=== PATIENT | male | born 1940 | race Caucasian/White ===

== ENCOUNTER → 2016-05-08 | Outpatient (CLI) | payer MEDICARE ==
[~2016-05-08] MED LIST: ACHD5005; ACHD5005 PO; AMBIEN CR; ATOR40TA70 PO; CEPH500C PO; CHOL400T43 PO; CHOL500014 PO; CLNZ.5T; CYAN100053 IJ; CYCL10TA45 PO; GLIP10TA13 PO; GLPZ10TCR; GLPZ5T; GMFB600T PO; HYDR1TAB PO; INSU100V8 SQ; LISI2.5T56 PO; METF-380 PO; METHYLIN; MGX400T PO; MTF500T PO; MTP50T PO; MULT1TAB63 PO; OMG1KC PO; RPN.25T; RSG4T; SIMV40TA2; SIMV80TA3 PO; TESTOSTERONE; TOPI200T2 PO; TRAM50TA2 PO; VITAMIN D; WARF7.5T PO; WRF10T; WRF10T PO
--- OUTSIDE RECORDS SUMMARY | 2016-05-08 08:21 | XMS REPORT | Continuity of Care Document ---
Author Author [facility] Organization [facility] Address Unknown Phone Unavailable Care Team Providers Care Functional Mental Disability Teacher Name Role Phone Fiorella Hart III PCP [phone] Source Comments Some departments are not documenting in the electronic medical record. If you do not see the information that you expected, contact Release of Information in the Health Information Management department at [phone] for further assistance in locating additional records.[facility] Active Allergies and Adverse Reactions No Known Allergies Current Medications Prescription Sig. Disp. Refills Start End Date Status Date glipiZIDE (GLUCOTROL) 10 Take 10 mg by mouth twice Active mg tablet daily. warfarin (COUMADIN) 5 mg Take 7.5 mg by mouth Active tablet twice weekly. Friday, atorvastatin (LIPITOR) 40 Take 40 mg by mouth at Active mg tablet bedtime daily. niacin SR (ENDUR-ACIN) Take 750 mg by mouth Active 500 mg tablet twice daily. magnesium oxide (MAG-OX) Take 400 mg by mouth Active 400 mg tablet daily. Cholecalciferol (Vitamin Take 5,000 Units by mouth Active D3) 5,000 unit tab twice weekly. Fridays, he is taking Rx Vitamin D 50,000 units cyclobenzaprine Take 10 mg by mouth at Active (FLEXERIL) 10 mg tablet bedtime daily. cyanocobalamin (VITAMIN Inject 1,000 mcg to Active B-12, RUBRAMIN) 1,000 area(s) as directed every mcg/mL injection 30 days. metFORMIN (GLUCOPHAGE) Take 1,000 mg by mouth Active 1,000 mg tablet twice daily with meals. metoprolol (LOPRESSOR) 50 Take 50 mg by mouth twice Active mg tablet daily. warfarin (COUMADIN) 10 mg Take 10 mg by mouth five Active tablet times weekly. Friday, Friday, Friday, Friday, Friday insulin glargine (LANTUS) Inject 54 Units into Active 100 unit/mL injection area(s) as directed at bedtime daily. DOCOSAHEXANOIC ACID/EPA Take 7 Caps by mouth Active (FISH OIL PO) daily. 9800mg HYDROCODONE BIT/HOMATROP Take by mouth as Needed. Active ME-BR (HYDROCODONE COMPOUND PO) gabapentin (NEURONTIN) Take 300 mg by mouth Active 300 mg capsule daily. linagliptin (TRADJENTA) 5 Take 2.5 mg by mouth Active mg tab daily. fenofibrate TAKE ONE-HALF TABLET BY 45 Tab 1 11/29/19 Active nanocrystallized (TRICOR) MOUTH DAILY 16 145 mg tablet Active Problems Problem Noted Date Infected dental carries 07/11/2015 Familial combined hyperlipidemia 07/05/2014 Carotid artery plaque 07/05/2014 Diabetes (HCC) 07/05/2014 Cancer of kidney 05/27/2013 Overview: 05/27/13 Left lap radical nephrectomy, Dr. Sesay. pT1a KIDNEY: Nephrectomy, Radical Procedure: Radical nephrectomy Specimen Laterality: Left Tumor Site: Middle Tumor Size: 4.0 x 3.0 x 2.2 cm Tumor Focality: Unifocal Macroscopic Extent of Tumor: Tumor limited to kidney Histologic Type: Unclassifiable, low grade Sarcomatoid Features: Not identified Tumor Necrosis: Not identified Histologic Grade: Low grade Microscopic Tumor Extension: Tumor limited to kidney Margins: Margins uninvolved by invasive carcinoma Lymph-Vascular Invasion: Not identified Pathologic Staging (pTNM): pT1a NX M Not applicable 11/2013: CXR ALISON, Cr=1.4 (stable) 06/2014: STEFANI 1. INTERVAL LEFT NEPHRECTOMY WITHOUT EVIDENCE OF A RECURRENT OR RESIDUAL LEFT RENAL FOSSA MASS 2. REDEMONSTRATION OF TWO RIGHT RENAL CYSTS WITH A THIN SEPTUM WITHIN THE LARGER CYST, LIKELY FROM PRIOR INTRACYSTIC HEMORRHAGE. NO SUSPICIOUS RIGHT RENAL LESION IS IDENTIFIED. CXR wnl 12/2014: STEFANI - stable right renal cyst; no evidence of malignancy 06/2015: CT ALISON; right renal cyst unchanged L ast Assessment & Plan: Doing well ALISON RTC 1 year with CXR and BMP Hypertriglyceridemia 05/18/2013 Factor 5 Leiden mutation, heterozygous (HCC) 05/18/2013 DVT (deep venous thrombosis) (HCC) 05/18/2013 Pulmonary embolism (HCC) 05/18/2013 Vitamin D deficiency 05/18/2013 Resolved Problems Problem Noted Date Resolved Date Diabetes mellitus (HCC) 05/18/2013 07/05/2014 Most Recent Encounters Date Type Specialty Providers Description 04/11/2016 Scan Only Clinical Pharmacology Joel Palma MD Social History Tobacco Use Types Packs/Day Years Used Date Former Smoker Cigarettes 3 35 Smokeless Tobacco: Never Used Tobacco Cessation: Counseling Given: No Comments: Alcohol Use Drinks/Week oz/Week Comments No Last Filed Vital Signs Vital Sign Reading Time Taken Blood Pressure 130/65 07/11/2015 1:50 PM CDT Pulse 75 07/11/2015 1:50 PM CDT Temperature 36.7 C (98 F) 05/29/2013 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 Respiratory Rate 16 07/11/2015 1:50 PM CDT Height 1.727 m (5' 8") 07/11/2015 1:50 PM CDT Weight 131.725 kg (290 lb 6.4 07/11/2015 1:50 PM CDT oz) Body Mass Index 44.17 07/11/2015 1:50 PM CDT Oxygen Saturation 96% 05/29/2013 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 Plan of Care Date Type Specialty Providers Description 07/16/2016 Appointment Urology Dennise Sesay MD [address] [facility] [place] [address] [place] [address] [phone] (Fax) Health Maintenance Due Date Last Done Comments Physical (Comprehensive) 1947 Exam Pertussis Vaccine 1950 Tetanus Vaccine 01/05/1956 Dilated Eye Exam 1957 Foot Exam 1957 Microalbumin 1957 Shingles Vaccine 1999 Prevnar/Pneumovax (#1) 01/05/2004 Influenza Vaccine 11/23/2015 Hba1c 01/10/2016 07/11/2015, 01/03/2015, 07/05/2014 Additional history exists Results from Last 3 Months Not on file
--- NOTE | 2016-05-08 09:28 | Diagnostic Imaging Report ---
CLINICAL INDICATION: Patient with thyromegaly. COMPARISONS: None. FINDINGS: THYROID NODULES: There is a 5 mm x 4 mm x 5 mm nodule involving the inferior pole of left thyroid gland which demonstrates central iso-echogenicity with hypoechoic rim. This nodule shows no significant central Doppler flow. There are no other thyroid nodules seen. THYROID GLAND: Besides the thyroid nodules, the thyroid gland has normal size, shape and echogenicity. The right lobe measures 3.0 cm x 1.2 cm x 0.9 cm and the left lobe measures 3.0 cm x 1.2 cm x 1.2 cm in their three dimensions. ISTHMUS: The isthmus is unremarkable and measures 4 mm in thickness. IMPRESSION: There is a 5 mm nodule in the left thyroid gland. Otherwise, unremarkable thyroid ultrasound exam. Dictated by: Dictated on workstation # [id number]
== END ==
LOC: RAD 08:17
PROVIDERS: ATTEND Nurse Practitioner Family
DX: E01.0 Iodine-deficiency related diffuse (endemic) goiter (principal)
CPT/HCPCS: 76536

== ENCOUNTER 2016-06-15 15:58 | Emergency (ER) | payer MEDICARE ==
[~2016-06-15] VITALS: Ht 177.8 cm; Wt 117.9 kg
--- NOTE | 2016-06-15 17:06 | Diagnostic Imaging Report ---
INDICATION: Left leg pain after trip and fall. COMPARISON: None available. TECHNIQUE: AP and lateral views of the left tibia and fibula. FINDINGS: There is no acute fracture or abnormal periosteal reaction. No focal osseous lesion. The knee and ankle are normal in alignment. Mild degenerative changes of the tibiotalar joint. Small plantar calcaneal spur. IMPRESSION: No acute fracture of the left tibia and fibula. Dictated by: Dictated on workstation # [id number]
--- NOTE | 2016-06-15 17:19 | ED Lower Extremity ---
General Chief Complaint: Trauma-Non Activation Stated Complaint: LEFT LEG PAIN Nursing Triage Note: Pt fell in a man hole. Abrasion noted to left blanco. Pt has been ambulatory. Nursing Sepsis Screen: No Definite Risk Source: patient Exam Limitations: no limitations History of Present Illness Time seen by provider: 17:14 Initial Comments The patient reports that he was in his yard earlier this afternoon. He stepped on the lid of the water meter. It tilted and dropped him into the manhole with his left leg. He does not believe that his leg was broken but he has an abrasion over the left tibia at the mid point. His last tetanus shot was 2 years ago. Location Injury Occurred: [facility] Onset: this afternoon Pain/Injury Location: left leg Method of Injury: direct blow Allergies and Home Medications Allergies Coded Allergies: meperidine (Verified Allergy, Unknown, 06/27/06) Home Medications Atorvastatin Calcium 40 Mg Tablet, 40 MG PO HS, (Reported) Cephalexin Monohydrate 500 Mg Capsule, 1 EACH PO TID, #21 Ref 0 Prescribed by: RASHIDA NJ on 09/30/13 175 Cyclobenzaprine Hcl 10 Mg Tablet, 10 MG PO HS, (Reported) Gemfibrozil 600 Mg Tab, 600 MG PO DAILY, (Reported) Glipizide 10 Mg Tablet, 10 MG PO BID, (Reported) Magnesium Oxide 400 Mg Tab, 400 MG PO DAILY, (Reported) Metformin Hcl 1,000 Mg Tablet, 1,000 MG PO BID WITH MEALS, (Reported) Metoprolol Tartrate 50 Mg Tablet, 50 MG PO BID, (Reported) Tramadol Hcl 50 Mg Tablet, 50 MG PO Q4H PRN for PAIN, #14 Ref 0 Prescribed by: RASHIDA NJ on 09/30/13 193 Warfarin Sodium 10 Mg Tablet, 1 EACH PO UD, (Reported) Constitutional: see HPI EENTM: no symptoms reported Respiratory: no symptoms reported Cardiovascular: no symptoms reported Gastrointestinal: no symptoms reported Genitourinary: no symptoms reported Musculoskeletal: no symptoms reported Skin: no symptoms reported Psychiatric/Neurological: No Symptoms Reported Past Uxyddtl-Dktyts-Rtutzq Hx Patient Social History Alcohol Use: Denies Use Recreational Drug Use: No Recent Foreign Travel: No Contact w/Someone Who Travel: No Recent Infectious Disease Expo: No Immunizations Up To Date Tetanus Booster (TDap): Less than 5yrs Date of Pneumonia Vaccine: Oct 15, 2010 Date of Influenza Vaccine: Dec 22, 2010 Surgeries HX Surgeries: Yes (REMOVAL ADHESIONS) Respiratory Hx Respiratory Disorders: Yes Respiratory Disorders: Sleep Apnea, COPD Cardiovascular Hx Cardiac Disorders: Yes Neurological Hx Neurological Disorders: No Reproductive System Hx Reproductive Disorders: No Genitourinary Hx Genitourinary Disorders: Yes (EPIDIDYMITIS--S/P SURGERY L KIDNEY REMOVED) Genitourinary Disorders: Benign Prostatic Hyperpl Gastrointestinal Hx Gastrointestinal Disorders: Yes (DYSPHAGIA) Gastrointestinal Disorders: Gastroesophageal Reflux, Obstructive Bowel, Diverticulosis, Hiatal Hernia Musculoskeletal Hx Musculoskeletal Disorders: Yes (CHRONIC GENERALIZED PAIN) Musculoskeletal Disorders: Arthritis Endocrine Hx Endocrine Disorders: Yes Endocrine Disorders: Diabetes, Non-Insulin dep HEENT HX ENT Disorders: Yes (SAYS"THOUSANDS OF DOLLARS OF DENTAL WORK DONE) Cancer Hx Cancer: Yes Cancer: Kidney Psychosocial Hx Psychiatric Problems: No Integumentary HX Skin/Integumentary Disorder: No Blood Transfusions Hx Blood Disorders: Yes (FACTOR 5 DEFICIENCY, MULTIPLE DVT'S) Physical Exam Vital Signs Vital Sign - Last 12Hours 06/15/16 16:10 Temp 97.5 Pulse 70 Resp 16 B/P (MAP) 156/74 O2 Delivery Room Air Capillary Refill : Less Than 3 Seconds General Appearance: no apparent distress HEENT: normal ENT inspection Neck: full range of motion Cardiovascular: normal peripheral pulses, regular rate, rhythm, no edema, no gallop, no JVD, no murmur Respiratory: chest non-tender, lungs clear, normal breath sounds, no respiratory distress, no accessory muscle use Comments There is a superficial abrasion on the medial aspect of the left mid tibia estimated to be 1.5-2 cm in diameter. Progress/Results/Core Measures Results/Orders My Orders Orders - YAN TELLEZ MD Tibia/Fibula, Left, 2 Views (06/15/16 16:25) Vital Signs/I&O Vital Sign - Last 12Hours 06/15/16 06/15/16 16:10 16:35 Temp 97.5 97.5 Pulse 70 70 Resp 16 16 B/P (MAP) 156/74 156/74 (101) O2 Delivery Room Air Blood Pressure Mean: 101 Departure Communication Progress Notes Left lower leg x-ray negative for fracture Impression Impression: Primary Impression: abrasion left tibia Disposition: 01 HOME, SELF-CARE Condition: Stable/Unchanged Departure-Patient Inst. Decision time for Depature: 17:18 Referrals: KAILYN HUTCHINS DO (PCP/Family) Primary Care Physician Patient Instructions: Skin Abrasions (DC) Add. Discharge Instructions: All discharge instructions reviewed with patient and/or family. Voiced understanding. Use triple antibiotic 3 times daily Keep clean and dry. You may shower but do not immerse YAN TELLEZ MD Jun 15, 2016 17:19
[2016-06-15 17:34] VITALS: BP 152/70
--- OUTSIDE RECORDS SUMMARY | 2016-07-02 11:51 | XMS REPORT | Continuity of Care Document ---
Author Author [facility] Organization [facility] Address Unknown Phone Unavailable Care Team Providers Care Chief Ophthalmic Technician Name Role Phone Dustin Hart III PCP [phone] Source Comments Some departments are not documenting in the electronic medical record. If you do not see the information that you expected, contact Release of Information in the Health Information Management department at [phone] for further assistance in locating additional records.[facility] Active Allergies and Adverse Reactions No Known [...] Problem Noted Date Resolved Date Diabetes mellitus ([facility]) 05/18/2013 07/05/2014 Social History Tobacco Use Types Packs/Day Years Used Date Former Smoker Cigarettes 3 35 Smokeless Tobacco: Never Used Tobacco Cessation: Counseling Given: No Comments: Alcohol Use Drinks/Week oz/Week Comments No Last Filed Vital Signs Vital Sign Reading Time Taken Blood Pressure 130/65 07/11/2015 1:50 PM CDT Pulse 75 07/11/2015 1:50 PM CDT Temperature 36.7 C (98 F) 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 Respiratory Rate 16 07/11/2015 1:50 PM CDT Height 1.727 m (5' 8") 07/11/2015 1:50 PM CDT Weight 131.725 kg (290 lb 6.4 07/11/2015 1:50 PM CDT oz) Body Mass Index 44.17 07/11/2015 1:50 PM CDT Oxygen Saturation 96% 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 Plan of Care Health Maintenance Due Date Last Done Comments Physical (Comprehensive) 1947 Exam Pertussis Vaccine 1950 Tetanus Vaccine 01/05/1956 Dilated Eye Exam 1957 Foot Exam 1957 Microalbumin 1957 Shingles Vaccine 1999 Prevnar/Pneumovax (#1) 01/05/2004 Hba1c 01/10/2016 07/11/2015, 01/03/2015, 07/05/2014 Additional history exists Influenza Vaccine 11/22/2016 Results from Last 3 Months Not on file
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
== END 2016-06-15 17:34 | disposition home or self-care (01) ==
LOC: EDUNIT# 15:58 → ER 16:00
DX: S80.812A Abrasion, left lower leg, initial encounter (principal); E11.9 Type 2 diabetes mellitus without complications; J44.9 Chronic obstructive pulmonary disease, unspecified; Z79.84 Long term (current) use of oral hypoglycemic drugs; Z79.899 Other long term (current) drug therapy; W18.42XA Slipping, tripping and stumbling without falling due to stepping into hole or opening, initial encounter; Y92.017 Garden or yard in single-family (private) house as the place of occurrence of the external cause; Y99.8 Other external cause status
CPT/HCPCS: 73590; 99285

== ENCOUNTER 2017-08-23 12:29 | Inpatient (IN) | payer MEDICARE ==
[~2017-08-23] VITALS: Ht 177.8 cm; Wt 118.9 kg
--- OUTSIDE RECORDS SUMMARY | 2017-08-23 12:40 | XMS REPORT | Continuity of Care Document ---
Author Author [facility] Organization [facility] Address Unknown Phone Unavailable Allergies Active Description Code Type Severity Reaction Onset Reported/Identified Relationship to Patient Clinical Status Yes meperidine [id number] Drug Allergy Unknown N/A 06/27/2006 Medications There is no data. Problems Date Dx Coded Attending Type Code [...] DUNNE MD Ot 414.01 CORONARY ATHEROSCLEROSIS OF [place] CORON 12/15/2012 RADHA DUNNE MD Ot 459.81 [...] 05/12/2014 DEANNA VARELA MD Ot 272.4 05/12/2014 DEANNA VARELA MD Ot 401.9 05/12/2014 DEANNA VARELA MD Ot 433.10 05/12/2014 DEANNA VARELA MD Ot 453.40 10/20/2014 HUTCHINS DO, KAILYN Barros Ot 959.7 10/20/2014 HUTCHINS DO, KAILYN Barros Ot E000.8 10/20/2014 HUTCHINS DO, KAILYN Barros Ot E849.0 10/20/2014 HUTCHINS DO, KAILYN Barros Ot E928.9 11/08/2014 HUTCHINS DO, KAILYN Barros Ot 959.7 11/08/2014 HUTCHINS DO, KAILYN Barros Ot E000.8 11/08/2014 HUTCHINS , KAILYN Barros Ot E849.0 11/08/2014 HUTCHINS , KAILYN Barros Ot E928.9 03/28/2015 LIZETH DPM, SURENDRA Q Ot M25.572 03/28/2015 LIZETH DPM, SURENDRA Q Ot M79.662 03/28/2015 LIZETH DPM, SURENDRA Q Ot M79.672 04/06/2015 LIZETH DPM, SURENDRA Q Ot M25.572 04/06/2015 LIZETH DPM, SURENDRA Q Ot M79.662 04/06/2015 LIZETH DPM, SURENDRA Q Ot M79.672 05/08/2016 UZAIR ABERNATHY, RADHA [place] Ot 785.0 TACHYCARDIA NOS 05/08/2016 UZAIR ABENRATHY, RADHA [place] Ot V58.69 OT MED,LT,CURRENT USE 05/08/2016 ELY COREY MD Ot [...] E849.0 ACCIDENT IN HOME 05/08/2016 KAILYN HUTCHINS DO Ot E928.9 ACCIDENT NOS 05/08/2016 LIZETH DPM, SURENDRA Q Ot M25.572 PAIN IN LEFT ANKLE AND JOINTS OF LEFT FO 05/08/2016 LIZETH DPM, SURENDRA Q Ot M79.662 PAIN IN LEFT LOWER LEG 05/08/2016 LIZETH DPM, SURENDRA Q Ot M79.672 PAIN IN LEFT FOOT 05/09/2016 MARSHA HUTCHINSP Ot E01.0 IODINE-DEFICIENCY RELATED DIFFUSE (ENDEM 06/10/2016 MARSHA HUTCHINSP Ot E01.0 IODINE-DEFICIENCY RELATED DIFFUSE (ENDEM 06/15/2016 YAN TELLEZ MD Ot E11.9 TYPE 2 DIABETES MELLITUS WITHOUT COMPLIC 06/15/2016 YAN TELLEZ MD Ot J44.9 CHRONIC OBSTRUCTIVE PULMONARY DISEASE, U 06/15/2016 YAN TELLEZ MD Ot S80.812A ABRASION, LEFT LOWER LEG, INITIAL ENCOUN 06/15/2016 YAN TELLEZ MD Ot W18.42XA SLIP/TRIP W/O FALLING DUE TO STEP INTO H 06/15/2016 YAN TELLEZ MD Ot Y92.017 GARDEN OR YARD IN SINGLE-FAMILY (PRIVATE 06/15/2016 YAN TELLEZ MD Ot Y99.8 OTHER EXTERNAL CAUSE STATUS 06/15/2016 YAN TELLEZ MD Ot Z79.84 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 (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) USE OF ORAL HYPOGLYC 06/15/2016 YAN TELLEZ MD Ot Z79.899 OTHER GROUP HOME (CURRENT) DRUG THERAPY 06/17/2016 YAN TELLEZ MD Ot E11.9 TYPE 2 DIABETES MELLITUS WITHOUT COMPLIC 06/17/2016 YAN TELLEZ MD Ot J44.9 CHRONIC OBSTRUCTIVE PULMONARY DISEASE, U 06/17/2016 YAN TELLEZ MD Ot S80.812A ABRASION, LEFT LOWER LEG, INITIAL ENCOUN 06/17/2016 YAN TELLEZ MD Ot W18.42XA SLIP/TRIP W/O FALLING DUE TO STEP INTO H 06/17/2016 YAN TELLEZ MD Ot Y92.017 GARDEN OR YARD IN SINGLE-FAMILY (PRIVATE 06/17/2016 YAN TELLEZ MD Ot Y99.8 OTHER EXTERNAL CAUSE STATUS 06/17/2016 YAN TELLEZ MD Ot Z79.84 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 (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) USE OF ORAL HYPOGLYC 06/17/2016 YAN TELLEZ MD Ot Z79.899 OTHER GROUP HOME (CURRENT) DRUG THERAPY 12/04/2016 YAN TELLEZ MD Ot E11.9 TYPE 2 DIABETES MELLITUS WITHOUT COMPLIC 12/04/2016 YAN TELLEZ MD Ot J44.9 CHRONIC OBSTRUCTIVE PULMONARY DISEASE, U 12/04/2016 YAN TELLEZ MD Ot S80.812A ABRASION, LEFT LOWER LEG, INITIAL ENCOUN 12/04/2016 YAN TELLEZ MD Ot W18.42XA SLIP/TRIP W/O FALLING DUE TO STEP INTO H 12/04/2016 YAN TELLEZ MD Ot Y92.017 GARDEN OR YARD IN SINGLE-FAMILY (PRIVATE 12/04/2016 YAN TELLEZ MD Ot Y99.8 OTHER EXTERNAL CAUSE STATUS 12/04/2016 YAN TELLEZ MD Ot Z79.84 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 Results There is no data. Encounters ACCT No. Visit Date/Time Discharge Status Pt. Type Provider Facility Loc./Unit Complaint [id number] 06/15/2016 16:00:00 06/15/2016 17:34:00 DIS Outpatient YAN TELLEZ MD [facility] ER LEFT LEG PAIN [id number] 05/08/2016 08:17:00 05/08/2016 23:59:59 CLS Outpatient MARSHA HUTCHINS [facility] RAD THYROMEGALY [id number] 03/03/2015 09:52:00 03/03/2015 23:59:59 CLS Outpatient LIZETH DPM, SURENDRA Q [facility] RAD PAIN TO LEFT FOOT,ANKLE, CALF AND GROIN WITH EDEMA [id number] 09/29/2014 16:23:00 09/29/2014 23:59:59 CLS Outpatient KAILYN HUTCHINS DO [facility] RAD TRAUMA [id number] 04/12/2014 12:51:00 04/12/2014 23:59:59 CLS Outpatient DEANNA VARELA MD [facility] CARD FABRICE,DVT,HTN,EDEMA [id number] 12/10/2013 16:34:00 12/10/2013 23:59:59 CLS Outpatient [id number] 12/10/2013 14:30:00 12/10/2013 23:59:59 CLS Outpatient EYL COREY MD [facility] LABNPT (R) MEDIAL ANKLE WOUND [id number] 09/30/2013 17:05:00 09/30/2013 20:26:00 DIS Emergency RASHIDA CONNOLLY [facility] ER R THUMB LAC [id number] 12/13/2012 13:40:00 12/15/2012 12:00:00 DIS Inpatient RADHA DUNNE MD [facility] 4TH CHEST PAIN [id number] 10/15/2012 07:27:00 10/15/2012 10:40:00 DIS Outpatient ELY COREY MD [facility] SDC DYSPHAGIA [id number] 10/14/2012 08:11:00 10/14/2012 23:59:59 CLS Outpatient ELY COREY MD [facility] PREOP DYSPHAGIA [id number] 09/28/2012 12:30:00 09/28/2012 23:59:59 CLS Outpatient RADHA DUNNE MD [facility] CARD TACHYCARDIA [id number] 05/15/2011 02:50:00 Document Registration
--- OUTSIDE RECORDS SUMMARY | 2017-08-23 12:40 | XMS REPORT | Clinical Summary ---
Author Author [facility] Organization [facility] Address Unknown Phone Unavailable Care Team Providers Care Banana Carrier Name Role Phone Dennise Sesay MD Unavailable Meche Nathan RN Unavailable Joel Palma MD Unavailable Geno Clayton RN Unavailable Unavailable Molly Moe RN Unavailable Unavailable Lorena Rivera LPN Unavailable Unavailable Bessy Lezama PHARMD Unavailable Unavailable Victoriano Ashley PHARMD Unavailable Unavailable Dustin Hart MD PCP Source Comments Some departments are not documenting in the electronic medical record. If you do not see the information that you expected, contact Release of Information in the Health Information Management department at [phone] for further assistance in locating additional records.[facility] Allergies No Known Allergies Current Medications Prescription Sig. [...] injection area(s) as directed at bedtime daily. HYDROCODONE BIT/HOMATROP Take by mouth as Needed. 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 CXR today ALISON. Cr 1.6. Patient endorses little fluid intake. - enouraged patient to increase fluid intake daily - RTC [address], CXR, BMP Hypertriglyceridemia 05/18/2013 Factor 5 Leiden mutation, heterozygous (HCC) 05/18/2013 DVT (deep venous thrombosis) ([facility]) 05/18/2013 Pulmonary embolism ([facility]) 05/18/2013 Vitamin D deficiency 05/18/2013 Resolved Problems Problem Noted Date Resolved Date Diabetes mellitus ([facility]) 05/18/2013 07/05/2014 Family History Medical History Relation Name Comments Bleeding Disorders Other Diabetes Other Heart Disease Other Stroke Other Relation Name Status Comments Other Social History Tobacco Use Types Packs/Day Years Used Date Former Smoker Cigarettes 3 35 Smokeless Tobacco: Never Used Tobacco Cessation: Counseling Given: No Alcohol Use Drinks/Week oz/Week Comments No Sex Assigned at Date Recorded Not on file Last Filed Vital Signs Vital Sign Reading Time Taken Blood Pressure 132/77 07/16/2016 12:50 PM CDT Pulse 76 07/16/2016 12:50 PM CDT Temperature 36.7 C (98 F) 05/29/2013 8:00 AM BUSINESS ANALYST CONSULTANT Respiratory Rate 16 07/11/2015 1:50 PM CDT Oxygen Saturation 96% 05/29/2013 8:00 AM BUSINESS ANALYST CONSULTANT Inhaled Oxygen - - Concentration Weight 122.9 kg (271 lb) 07/16/2016 12:50 PM CDT Height 175.3 cm (5' 9") 07/16/2016 12:50 PM CDT Body Mass Index 40.02 07/16/2016 12:50 PM CDT Plan of Treatment Health Maintenance Due Date Last Done Comments PHYSICAL (COMPREHENSIVE) 1947 EXAM PERTUSSIS VACCINE 1950 TETANUS VACCINE 01/05/1956 DILATED EYE EXAM 1957 FOOT EXAM 1957 MICROALBUMIN 1957 SHINGLES VACCINE 1999 PNEUMONIA (PCV13/PPSV23) 01/05/2004 VACCINES (1 of 2 - PCV13) HBA1C 01/10/2016 07/11/2015, 01/03/2015, 07/05/2014, Additional history exists INFLUENZA VACCINE 12/22/2017 Results Not on filefrom Last 3 Months
--- NOTE | 2017-08-23 13:19 | ED Respiratory ---
General Chief Complaint: Respiratory Problems Stated Complaint: SOB, COUGH Nursing Triage Note: C/O COUGH FOR ABOUT A MONTH; STATES PCP TOLD HIM HE HAS "WALKING PNEUMONIA". WAS ON ABX, TODAY IS LAST DAY. STATES HE FEELS THAT HE IS SOA. PT. TOOK O2 SAT AT HOME AND HE STATED IT WAS LOW. PT. IS COUGHING AT THIS TIME BUT DOES NOT APPEAR IN RESPIRATORY DISTRESS. IS PLEASANT ET COMPLIANT Source: patient Exam Limitations: no limitations History of Present Illness Date Seen by Provider: Aug 23, 2017 Time Seen by Provider: 13:13 Initial Comments The patient presents to the ER by private conveyance with a chief complaint the past month he has been expressing progressively worsening shortness of breath and dry nonproductive cough. He's had no fevers chills nausea vomiting chest pain. He has noticed a little bit of swelling in his legs but has no known history of heart failure. He saw his primary care doctor about 5 days ago and is now completing a 5 day course of azithromycin. He has not been on any steroids in the past month. He does not have a history of COPD, asthma. He quit smoking about 28 years ago and was then a 3 pack per day smoker. He does use a CPAP machine at night to sleep but no oxygen. He says he gets more short of breath when he reclines all the way back and has to sit up to sleep. He is not known to a spool worker nausea or had an echocardiogram. Allergies and Home Medications Allergies Coded Allergies: meperidine (Verified Allergy, Unknown, 08/23/17) Home Medications Atorvastatin Calcium 40 Mg Tablet, 40 MG PO HS, (Reported) Cephalexin Monohydrate 500 Mg Capsule, 1 EACH PO TID Prescribed by: RASHIDA NJ on 09/30/131756 Cyclobenzaprine Hcl 10 Mg Tablet, 10 MG PO HS, (Reported) Gemfibrozil 600 Mg Tab, 600 MG PO DAILY, (Reported) Glipizide 10 Mg Tablet, 10 MG PO BID, (Reported) Magnesium Oxide 400 Mg Tab, 400 MG PO DAILY, (Reported) Metformin Hcl 1,000 Mg Tablet, 1,000 MG PO DAILY, (Reported) Metoprolol Tartrate 50 Mg Tablet, 50 MG PO BID, (Reported) Tramadol Hcl 50 Mg Tablet, 50 MG PO Q4H PRN for PAIN Prescribed by: RASHIDA NJ on 09/30/131933 Warfarin Sodium 10 Mg Tablet, 1 EACH PO UD, (Reported) Patient Home Medication List Home Medication List Reviewed: Yes Review of Systems Constitutional: No chills, No diaphoresis; malaise EENTM: No ear discharge, No ear pain Respiratory: cough, phlegm, short of breath; No wheezing Cardiovascular: No chest pain, No palpitations, No syncope Gastrointestinal: No abdominal pain, No constipation Genitourinary: No discharge, No dysuria Musculoskeletal: No back pain, No joint pain Past Nmwvbvw-Tpsusf-Nbqfqx Hx Patient Social History Alcohol Use: Denies Use Recreational Drug Use: No Smoking Status: Never a Smoker Recent Foreign Travel: No Contact w/Someone Who Travel: No Recent Infectious Disease Expo: No Recent Hopitalizations: Yes Immunizations Up To Date Tetanus Booster (TDap): Less than 5yrs Date of Pneumonia Vaccine: Oct 15, 2010 Date of Influenza Vaccine: Dec 22, 2010 Past Medical History Surgeries: Yes (REMOVAL ADHESIONS) Respiratory: Yes Sleep Apnea, COPD Cardiac: Yes Neurological: No Reproductive Disorders: No Benign Prostatic Hyperpl Gastrointestinal: Yes (DYSPHAGIA) Gastroesophageal Reflux, Obstructive Bowel, Diverticulosis, Hiatal Hernia Musculoskeletal: Yes (CHRONIC GENERALIZED PAIN) Arthritis Endocrine: Yes Diabetes, Non-Insulin dep Cancer: Yes Kidney Psychosocial: No Integumentary: No Blood Disorders: Yes (FACTOR 5 DEFICIENCY, MULTIPLE DVT'S) Physical Exam Vital Signs Vital Signs - First Documented 08/23/17 12:41 Temp 97.5 Pulse 70 Resp 20 B/P (MAP) 167/70 (102) Pulse Ox 93 O2 Delivery Room Air Capillary Refill : Less Than 3 Seconds General Appearance: WD/WN, no apparent distress Eyes: Bilateral Eye Normal Inspection, Bilateral Eye PERRL, Bilateral Eye EOMI HEENT: PERRL/EOMI, normal ENT inspection, TMs normal, pharynx normal Neck: non-tender, supple, normal inspection Respiratory: chest non-tender, no respiratory distress, no accessory muscle use , crackles (left lower base) Cardiovascular: normal peripheral pulses, regular rate, rhythm, no edema Gastrointestinal: normal bowel sounds, non tender, soft Neurologic/Psychiatric: alert, oriented x 3 Skin: normal color, warm/dry Progress/Results/Core Measures Suspected Sepsis Recent Fever Within 48 Hours: No Infection Criteria Present: None New/Unexplained Altered Menta: No Sepsis Screen: No Definite Risk SIRS Temperature:97.5 Pulse: 70 Respiratory Rate: 20 Laboratory Tests 08/23/17 13:43: White Blood Count 11.7H Blood Pressure 167 /70 Mean: 102 Laboratory Tests 08/23/17 13:43: Creatinine 1.19, Platelet Count 191, Total Bilirubin 0.7 08/23/17 13:45: INR Comment 4.2H Results/Orders Lab Results Laboratory Tests Test 08/23/17 13:43 08/23/17 13:45 Range/Units White Blood Count 11.7 H 4.3-11.0 10^3/uL Red Blood Count 4.43 4.35-5.85 10^6/uL Hemoglobin 13.7 13.3-17.7 G/DL Hematocrit 40 40-54 % Mean Corpuscular Volume 90 80-99 FL Mean Corpuscular Hemoglobin 31 25-34 PG Mean Corpuscular Hemoglobin Concent 34 32-36 G/DL Red Cell Distribution Width 14.7 H 10.0-14.5 % Platelet Count 191 130-400 10^3/uL Mean Platelet Volume 11.1 H 7.4-10.4 FL Neutrophils (%) (Auto) 71 42-75 % Lymphocytes (%) (Auto) 15 12-44 % Monocytes (%) (Auto) 12 0-12 % Eosinophils (%) (Auto) 2 0-10 % Basophils (%) (Auto) 0 0-10 % Neutrophils # (Auto) 8.2 H 1.8-7.8 X 10^3 Lymphocytes # (Auto) 1.8 1.0-4.0 X 10^3 Monocytes # (Auto) 1.4 H 0.0-1.0 X 10^3 Eosinophils # (Auto) 0.2 0.0-0.3 10^3/uL Basophils # (Auto) 0.0 0.0-0.1 10^3/uL Sodium Level 138 135-145 MMOL/L Potassium Level 4.3 3.6-5.0 MMOL/L Chloride Level 107 98-107 MMOL/L Carbon Dioxide Level 23 21-32 MMOL/L Anion Gap 8 5-14 MMOL/L Blood Urea Nitrogen 25 H 7-18 MG/DL Creatinine 1.19 0.60-1.30 MG/DL Estimat Glomerular Filtration Rate 59 BUN/Creatinine Ratio 21 Glucose Level 126 H 70-105 MG/DL Calcium Level 9.0 8.5-10.1 MG/DL Total Bilirubin 0.7 0.1-1.0 MG/DL Aspartate Amino Transf (AST/SGOT) 20 5-34 U/L Alanine Aminotransferase (ALT/SGPT) 26 0-55 U/L Alkaline Phosphatase 45 40-136 U/L C-Reactive Protein High Sensitivity 4.29 H 0.00-0.50 MG/DL B-Type Natriuretic Peptide 257.1 H <100.0 PG/ML Total Protein 6.3 L 6.4-8.2 GM/DL Albumin 3.5 3.2-4.5 GM/DL Prothrombin Time 40.5 H 12.2-14.7 SEC INR Comment 4.2 H 0.8-1.4 Activated Partial Thromboplast Time 66 H 24-35 SEC My Orders Orders - HELLEN BAILON BNP (08/23/17 13:17) Cbc With Automated Diff (08/23/17 13:17) Comprehensive Metabolic Panel (08/23/17 13:17) Hs C Reactive Protein (08/23/17 13:17) Sputum Culture (08/23/17 13:17) Chest Pa/Lat (2 View) (08/23/17 13:17) Albuterol/Ipra Inhalation Soln (Duoneb I (08/23/17 13:30) Svn Small Volume Nebulizer (08/23/17 13:17) Saline Lock/Iv-Start (08/23/17 15:15) Ns Iv 1000 Ml (Sodium Chloride 0.9%) (08/23/17 15:15) Ceftriaxone Injection (Rocephin Injectio (08/23/17 15:15) Protime With Inr (08/23/17 15:16) Partial Thromboplastin Time (08/23/17 15:16) Blood Culture (08/23/17 15:21) Lactic Acid Analyzer (08/23/17 15:21) Medications Given in ED Current Medications Medications Dose Ordered Sig/Betito Route Start Time Stop Time Status Last Admin Dose Admin Albuterol/ Ipratropium 3 ml ONCE ONCE INH 08/23/17 13:30 08/23/17 13:31 DC 08/23/17 13:32 3 ML Ceftriaxone Sodium 1000 mg/ Sodium Chloride 50 ml @ 100 mls/hr ONCE ONCE IV 08/23/17 15:15 08/23/17 15:44 DC 08/23/17 15:45 100 MLS/HR Vital Signs/I&O 08/23/17 08/23/17 12:41 13:33 Temp 97.5 Pulse 70 Resp 20 B/P (MAP) 167/70 (102) Pulse Ox 93 95 O2 Delivery Room Air Room Air Capillary Refill : Less Than 3 Seconds Blood Pressure Mean: 102 Progress Note : Time: 15:03 Progress Note Curb 65 he has 2 points and we have discussed it with him and he would prefer to stay inpatient as well as his agrees. He has tried azithromycin so it is not totally failed a 2 antibiotic outpatient challenge but given his age and frailty we would be reasonable to keep him here. We'll start him on Rocephin. Since he just completed a dose of azithromycin today this would cover him for atypicals over the next several days. Diagnostic Imaging Diagonstic Imaging: Xray Plain Films/CT/US/NM/MRI: chest (2v) Comments NAME: ANGELIKA PARKINSON [facility] REC#: [id number] PHYSICIAN: HELLEN BAILON MD CC: STEFFI SALINAS MD; HELLEN BAILON Page 1 of 1 RADIOLOGY REPORT VIA [facility] [place], [place] CC: STEFFI SALINAS MD; HELLEN BAILON Page 1 of 1 RADIOLOGY REPORT NAME: ANGELIKA PARKINSON [facility] REC#: [id number] PT STATUS: REG ER : 1940 PHYSICIAN: HELLEN BAILON MD ADMIT DATE: 08/23/17/ER Signed Date of Exam: 08/23/17 CHEST PA/LAT (2 VIEW) Indication: Cough, shortness of air Comparison: 12/13/2012 Technique: 2 radiographs of the chest dated 08/23/2017. Findings: The cardiac silhouette is within normal limits in size. No significant pulmonary vascular congestion. Mild left basilar opacities are present. The right lung appears clear. No significant pleural effusion. No pneumothorax. No acute osseous abnormality. Impression: Mild left basilar atelectasis and/or pneumonitis. Otherwise, unremarkable examination. Dictated by: Dictated on workstation # [id number] Dict: 08/23/17 1416 Trans: 08/23/17 1500 Interpreted by: STEFFI SALINAS MD Electronically signed by: STEFFI SALINAS MD 08/23/17 1500 Reviewed: Reviewed by Me Departure Communication (Admissions) Time/Spoke to Admitting Phy: 15:11 Dr Monroe: Discussed antibiotics, labs, case imaging and findings and he agrees to see the patient. Impression Primary Impression: Pneumonia Qualified Codes: J18.1 - Lobar pneumonia, unspecified organism Disposition: ADMITTED INPATIENT Condition: Stable Admissions Decision to Admit Reason: Admit from ER (General) Decision to Admit/Date: Aug 23, 2017 Time/Decision to Admit Time: 15:12 Departure-Patient Inst. Referrals: KAILYN HUTCHINS DO (PCP/Family) Primary Care Physician Copy Copies To 1: AL PETERSEN MD, TITUS J Aug 23, 2017 13:19
[2017-08-23] MEDS ORDERED: RT-ALBUTEROL/IPRATROPIUM 3 ML (DUONEB) VIAL INH ONE (13:30)
[2017-08-23 13:51] LABS: BASOPHILS % (AUTO) 0 % (0-10); EOSINOPHILS # (AUTO) 0.2 10^3/uL (0.0-0.3); EOSINOPHILS % (AUTO) 2 % (0-10); HEMATOCRIT 40 % (40-54); HEMOGLOBIN 13.7 G/DL (13.3-17.7); LYMPHOCYTES # (AUTO) 1.8 X 10^3 (1.0-4.0); LYMPHOCYTES % (AUTO) 15 % (12-44); MEAN CORPUSCULAR HEMOGLOBIN 31 PG (25-34); MEAN CORPUSCULAR HGB CONC 34 G/DL (32-36); MEAN CORPUSCULAR VOLUME 90 FL (80-99); MEAN PLATELET VOLUME 11.1 FL (7.4-10.4); MONOCYTES # (AUTO) 1.4 X 10^3 (0.0-1.0); MONOCYTES % (AUTO) 12 % (0-12); NEUTROPHILS # (AUTO) 8.2 X 10^3 (1.8-7.8); NEUTROPHILS % (AUTO) 71 % (42-75); PLATELET COUNT 191 10^3/uL (130-400); RED BLOOD COUNT 4.43 10^6/uL (4.35-5.85); RED CELL DISTRIBUTION WIDTH 14.7 % (10.0-14.5); WHITE BLOOD COUNT 11.7 10^3/uL (4.3-11.0)
[2017-08-23 14:13] LABS: ALBUMIN 3.5 GM/DL (3.2-4.5); BILIRUBIN,TOTAL 0.7 MG/DL (0.1-1.0); CREATININE SERUM 1.19 MG/DL (0.60-1.30); POTASSIUM 4.3 MMOL/L (3.6-5.0); TOTAL PROTEIN 6.3 GM/DL (6.4-8.2)
--- NOTE | 2017-08-23 14:24 | Diagnostic Imaging Report ---
Indication: Cough, shortness of air Comparison: 12/13/2012 Technique: 2 radiographs of the chest dated 08/23/2017. Findings: The cardiac silhouette is within normal limits in size. No significant pulmonary vascular congestion. Mild left basilar opacities are present. The right lung appears clear. No significant pleural effusion. No pneumothorax. No acute osseous abnormality. Impression: Mild left basilar atelectasis and/or pneumonitis. Otherwise, unremarkable examination. Dictated by: Dictated on workstation # [id number]
[2017-08-23] MEDS ORDERED: NS IV 1000 ML 1,000 ML IV SCH (15:15)
[2017-08-23] MEDS ORDERED: cefTRIAXone INJECTION 1,000 MG in NS (IVPB) 50 ML IV ONE (15:15)
[2017-08-23 15:28] LABS: INR 4.2 (0.8-1.4); PROTHROMBIN TIME PATIENT 40.5 SEC (12.2-14.7)
--- OUTSIDE RECORDS SUMMARY | 2017-08-23 15:33 | XMS REPORT | Continuity of Care Document ---
Author Author [facility] Organization [facility] Address Unknown Phone Unavailable Allergies Active Description Code Type Severity Reaction Onset Reported/Identified Relationship to Patient Clinical Status Yes meperidine [id number] Drug Allergy Unknown N/A 06/27/2006 Medications There [...] DUNNE MD Ot 414.01 CORONARY ATHEROSCLEROSIS OF [place] CORON 12/15/2012 RADHA DUNNE MD Ot 459.81 [...] [place] Ot 785.0 TACHYCARDIA NOS 05/08/2016 UZAIR ABERNATHY, RADHA [place] Ot V58.69 OT MED,LT,CURRENT USE [...] STATUS 06/15/2016 YAN TELLEZ MD Ot Z79.84 CASE MANAGER SPECIALIST (CURRENT) USE OF ORAL HYPOGLYC 06/15/2016 YAN TELLEZ MD Ot Z79.899 OTHER ALF (CURRENT) DRUG THERAPY 06/17/2016 YAN TELLEZ MD [...] STATUS 06/17/2016 YAN TELLEZ MD Ot Z79.84 CASE MANAGER SPECIALIST (CURRENT) USE OF ORAL HYPOGLYC 06/17/2016 YAN TELLEZ MD Ot Z79.899 OTHER ALF (CURRENT) DRUG THERAPY 12/04/2016 YAN TELLEZ MD [...] OTHER EXTERNAL CAUSE STATUS 12/04/2016 YAN TELLEZ MD, Ot Z79.84 CASE MANAGER SPECIALIST (CURRENT) USE OF ORAL HYPOGLYC 12/04/2016 YAN TELLEZ MD, Ot Z79.899 OTHER ALF (CURRENT) DRUG THERAPY Procedures There is no data. Results Test Result Range Complete blood count (CBC) with automated white blood cell (WBC) differential - 08/23/17 13:43 Blood leukocytes automated count (number/volume) 11.7 10*3/uL 4.3-11.0 Blood erythrocytes automated count (number/volume) 4.43 10*6/uL 4.35-5.85 Venous blood hemoglobin measurement (mass/volume) 13.7 g/dL 13.3-17.7 Blood hematocrit (volume fraction) 40 % 40-54 Automated erythrocyte mean corpuscular volume 90 [foz_us] 80-99 Automated erythrocyte mean corpuscular hemoglobin (mass per erythrocyte) 31 pg 25-34 Automated erythrocyte mean corpuscular hemoglobin concentration measurement ( mass/volume) 34 g/dL 32-36 Automated erythrocyte distribution width ratio 14.7 % 10.0-14.5 Automated blood platelet count (count/volume) 191 10*3/uL 130-400 Automated blood platelet mean volume measurement 11.1 [foz_us] 7.4-10.4 Automated blood neutrophils/100 leukocytes 71 % 42-75 Automated blood lymphocytes/100 leukocytes 15 % 12-44 Blood monocytes/100 leukocytes 12 % 0-12 Automated blood eosinophils/100 leukocytes 2 % 0-10 Automated blood basophils/100 leukocytes 0 % 0-10 Blood neutrophils automated count (number/volume) 8.2 10*3 1.8-7.8 Blood lymphocytes automated count (number/volume) 1.8 10*3 1.0-4.0 Blood monocytes automated count (number/volume) 1.4 10*3 0.0-1.0 Automated eosinophil count 0.2 10*3/uL 0.0-0.3 Automated blood basophil count (count/volume) 0.0 10*3/uL 0.0-0.1 Comprehensive metabolic panel - 08/23/17 13:43 Serum or plasma sodium measurement (moles/volume) 138 mmol/L 135-145 Serum or plasma potassium measurement (moles/volume) 4.3 mmol/L 3.6-5.0 Serum or plasma chloride measurement (moles/volume) 107 mmol/L 98-107 Carbon dioxide 23 mmol/L 21-32 Serum or plasma anion gap determination (moles/volume) 8 mmol/L 5-14 Serum or plasma urea nitrogen measurement (mass/volume) 25 mg/dL 7-18 Serum or plasma creatinine measurement (mass/volume) 1.19 mg/dL 0.60-1.30 Serum or plasma urea nitrogen/creatinine mass ratio 21 NRG Serum or plasma creatinine measurement with calculation of estimated glomerular filtration rate 59 NRG Serum or plasma glucose measurement (mass/volume) 126 mg/dL 70-105 Serum or plasma calcium measurement (mass/volume) 9.0 mg/dL 8.5-10.1 Serum or plasma total bilirubin measurement (mass/volume) 0.7 mg/dL 0.1-1.0 Serum or plasma alkaline phosphatase measurement (enzymatic activity/volume) 45 U/L 40-136 Serum or plasma aspartate aminotransferase measurement (enzymatic activity/ volume) 20 U/L 5-34 Serum or plasma alanine aminotransferase measurement (enzymatic activity/volume ) 26 U/L 0-55 Serum or plasma protein measurement (mass/volume) 6.3 g/dL 6.4-8.2 Serum or plasma albumin measurement (mass/volume) 3.5 g/dL 3.2-4.5 Serum or plasma C reactive protein measurement (mass/volume) - 08/23/17 13:43 Serum or plasma C reactive protein measurement (mass/volume) 4.29 mg /dL 0.00-0.50 Serum or plasma lithium measurement (moles/volume) - 08/23/17 13:43 BNP level 257.1 pg/mL <100.0 PT panel in platelet poor plasma by coagulation assay - 08/23/17 13:45 Prothrombin time (PT) in platelet poor plasma by coagulation assay 40.5 s 12.2-14.7 INR in platelet poor plasma or blood by coagulation assay 4.2 0.8-1.4 Activated partial thromboplastin time (aPTT) in platelet poor plasma bycoagulation assay - 08/23/17 13:45 Activated partial thromboplastin time (aPTT) in platelet poor plasma bycoagulation assay 66 s 24-35 Encounters ACCT No. Visit Date/Time Discharge Status Pt. Type Provider Facility Loc./Unit Complaint [id number] 06/15/2016 16:00:00 06/15/2016 17:34:00 DIS Outpatient YAN TELLEZ MD [facility] ER LEFT LEG PAIN [id number] 05/08/2016 08:17:00 05/08/2016 23:59:59 CLS Outpatient MARSHA HUTCHINS HEAD GRINDER [facility] RAD THYROMEGALY [id number] 03/03/2015 09:52:00 03/03/2015 23:59:59 CLS Outpatient LIZETH DPM, SURENDRA Q [facility] RAD PAIN TO LEFT FOOT,ANKLE, CALF AND GROIN WITH EDEMA [id number] 09/29/2014 16:23:00 09/29/2014 23:59:59 CLS Outpatient KAILYN HUTCHINS DO [facility] RAD TRAUMA [id number] 04/12/2014 12:51:00 04/12/2014 23:59:59 CLS Outpatient DEANNA VARELA MD [facility] CARD FABRICE,DVT,HTN,EDEMA [id number] 12/10/2013 16:34:00 12/10/2013 23:59:59 CLS Outpatient [id number] 12/10/2013 14:30:00 12/10/2013 23:59:59 CLS Outpatient ELY COREY MD [facility] LABNPT (R) MEDIAL ANKLE WOUND [id number] 09/30/2013 17:05:00 09/30/2013 20:26:00 DIS Emergency RASHIDA CONNOLLY [facility] ER R THUMB LAC [id number] 12/13/2012 13:40:00 12/15/2012 12:00:00 DIS Inpatient RADHA DUNNE MD [facility] 4TH CHEST PAIN [id number] 10/15/2012 07:27:00 10/15/2012 10:40:00 DIS Outpatient ELY COREY MD [facility] SDC DYSPHAGIA [id number] 10/14/2012 08:11:00 10/14/2012 23:59:59 CLS Outpatient ELY COREY MD [facility] PREOP DYSPHAGIA [id number] 09/28/2012 12:30:00 09/28/2012 23:59:59 CLS Outpatient UZAIR ABERNATHY, RADHA [place] [facility] CARD TACHYCARDIA [id number] 08/23/2017 13:52:00 Document Registration [id number] 05/15/2011 02:50:00 Document Registration
--- OUTSIDE RECORDS SUMMARY | 2017-08-23 15:33 | XMS REPORT | Clinical Summary ---
Author Author [facility] Organization [facility] Address Unknown Phone Unavailable Care Team Providers Care Power Shovel Mechanic Name Role Phone Dennise Sesay MD Unavailable [...] in the Health Information Management department at [phone] for further assistance in locating additional records.[facility] Allergies No Known Allergies Current Medications [...] heterozygous (HCC) 05/18/2013 DVT (deep venous thrombosis) ([facility]) 05/18/2013 Pulmonary embolism ([facility]) 05/18/2013 Vitamin D deficiency 05/18/2013 Resolved Problems Problem Noted Date Resolved Date Diabetes mellitus ([facility]) 05/18/2013 07/05/2014 Family History Medical History Relation [...] 36.7 C (98 F) 05/29/2013 8:00 AM PRODUCTION INTERN Respiratory Rate 16 07/11/2015 1:50 PM CDT Oxygen Saturation 96% 05/29/2013 8:00 AM PRODUCTION INTERN Inhaled Oxygen - - Concentration Weight 122.9 [...]
[2017-08-23 16:00] VITALS: BP 187/82
[2017-08-23] MEDS ORDERED: CATHETER FLUSH 10 ML SYR IV PRN (16:15)
[2017-08-23] MEDS ORDERED: ACETAMINOPHEN 500 MG TAB (TYLENOL) PO PRN (16:30)
[2017-08-23] MEDS: inSUlin ASPART (NovoLOG) 1 UNIT/0.01 ML (CHARGE PER UNIT) SC SCH ×2 (16:40→21:30)
[2017-08-23] MEDS ORDERED: warFARin 7.5 MG (COUMADIN) TAB PO SCH (18:00)
[2017-08-23 20:00] VITALS: BP 154/71
[2017-08-23] MEDS: ATORVASTATIN 40 MG (LIPITOR) TABLET PO SCH (20:00)
[2017-08-23] MEDS: CYCLOBENZAPRINE 10 MG (FLEXERIL) TAB PO SCH (20:01)
[2017-08-23] MEDS: meTOprolol TARTRATE 50 MG (LOPRESSOR) TAB PO SCH (20:01)
[2017-08-23] MEDS: inSUlin DETERMIR 1 UNIT/0.01 ML (LEVEMIR) CHARGE PER UNIT SQ SCH (20:01)
[2017-08-23] MEDS: RT-ALBUTEROL/IPRATROPIUM 3 ML (DUONEB) VIAL INH SCH (20:42)
[2017-08-23] MEDS ORDERED: CATHETER FLUSH 10 ML SYR IV SCH (22:00)
[2017-08-23] MEDS: CATHETER FLUSH 10 ML SYR IV SCH (22:30)
[2017-08-23 23:52] VITALS: BP 118/60
[2017-08-24] MEDS: RT-ALBUTEROL/IPRATROPIUM 3 ML (DUONEB) VIAL INH SCH ×4 (02:37→19:15)
[2017-08-24 04:47] VITALS: BP 111/56
[2017-08-24] MEDS: CATHETER FLUSH 10 ML SYR IV SCH ×3 (05:57→20:08)
[2017-08-24] MEDS: glipiZIDE 5 MG (GLUCOTROL) TAB PO SCH ×2 (05:58→17:02)
[2017-08-24] MEDS: metFORMIN 500 MG (GLUCOPHAGE) TAB PO SCH (05:58)
[2017-08-24] MEDS: inSUlin ASPART (NovoLOG) 1 UNIT/0.01 ML (CHARGE PER UNIT) SC SCH ×4 (06:33→23:48)
[2017-08-24 07:04] LABS: BASOPHILS % (AUTO) 0 % (0-10); EOSINOPHILS # (AUTO) 0.2 10^3/uL (0.0-0.3); EOSINOPHILS % (AUTO) 2 % (0-10); HEMATOCRIT 40 % (40-54); HEMOGLOBIN 13.3 G/DL (13.3-17.7); LYMPHOCYTES # (AUTO) 1.8 X 10^3 (1.0-4.0); LYMPHOCYTES % (AUTO) 16 % (12-44); MEAN CORPUSCULAR HEMOGLOBIN 30 PG (25-34); MEAN CORPUSCULAR HGB CONC 33 G/DL (32-36); MEAN CORPUSCULAR VOLUME 90 FL (80-99); MEAN PLATELET VOLUME 11.6 FL (7.4-10.4); MONOCYTES # (AUTO) 1.2 X 10^3 (0.0-1.0); MONOCYTES % (AUTO) 11 % (0-12); NEUTROPHILS # (AUTO) 7.7 X 10^3 (1.8-7.8); NEUTROPHILS % (AUTO) 71 % (42-75); PLATELET COUNT 193 10^3/uL (130-400); RED BLOOD COUNT 4.43 10^6/uL (4.35-5.85); RED CELL DISTRIBUTION WIDTH 14.9 % (10.0-14.5); WHITE BLOOD COUNT 10.8 10^3/uL (4.3-11.0)
[2017-08-24 07:15] LABS: INR 3.2 (0.8-1.4); PROTHROMBIN TIME PATIENT 32.8 SEC (12.2-14.7)
[2017-08-24 07:25] LABS: CALCIUM 8.8 MG/DL (8.5-10.1); CREATININE SERUM 1.22 MG/DL (0.60-1.30); POTASSIUM 4.2 MMOL/L (3.6-5.0)
[2017-08-24 08:00] VITALS: BP 135/75
[2017-08-24] MEDS: meTOprolol TARTRATE 50 MG (LOPRESSOR) TAB PO SCH ×2 (08:57→20:07)
--- NOTE | 2017-08-24 11:53 | History & Physical-Hospitalist ---
History of Present Illness HPI/Chief Complaint The patient is a 77-year-old white male who first noted the onset of head congestion without chills fever or sore throat. It rapidly progressed to a non- productive cough associated with fatigue. He also had some associated chest pain with this coughing and he reports with coughing spasms he becomes diaphoretic. After 3 weeks of symptoms he presented to Dr. Solano's office at which time he received a Z-Abdoul and what sounds like Tessalon Perles for his cough. He finished this yesterday and has not noted any improvement. He has not been able to bring up any sputum continues to feel fatigued without any other overt infectious symptomatology. 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 His Coumadin was held last night's as his INR was 4.3 making thromboembolic issues highly unlikely. He reports no past history of pneumonia Date Seen 08/24/17 Time Seen by Provider: 10:30 Attending Physician Brendan Esposito MD PCP Nilson Solano M.D. Referring Physician Date of Admission Aug 23, 2017 at 15:28 Home Medications & Allergies Home Medications Reviewed patient Home Medication Reconciliation performed by pharmacy medication reconciliations advanced manufacturing technician and/or nursing. Patients Allergies have been reviewed. Allergies Allergies Coded Allergies meperidine (Verified Allergy, Unknown, 08/23/17) Past Uxgvgat-Sjaacl-Dqnigd Hx Past Med/Social Hx: Reviewed and Corrections made Patient Social History Alcohol Use: Denies Use Number of Drinks Today: AA Recreational Drug Use: No Smoking Status: Former Smoker Type Used: Cigarettes Physical Abuse Screen: No Sexual Abuse: No Recent Foreign Travel: No Contact w/other who traveled: No Recent Hopitalizations: No Recent Infectious Disease Expo: No Immunizations Up To Date Tetanus Booster (TDap): Less than 5yrs Date of Pneumonia Vaccine: Oct 15, 2010 Date of Influenza Vaccine: Dec 22, 2010 Seasonal Allergies Seasonal Allergies: No Past Medical History Surgeries: Abdominal, Vascular Surgery (Vein stripping of lower extremities) Reproductive: No Genitourinary: Benign Prostatic Hyperpl Gastrointestinal: Gastroesophageal Reflux, Obstructive Bowel, Diverticulosis, Hiatal Hernia Musculoskeletal: Arthritis Endocrine: Diabetes, Non-Insulin dep Cancer: Kidney History of Blood Disorders: Yes (FACTOR 5 DEFICIENCY, MULTIPLE DVT'S) Review of Systems Constitutional: see HPI Respiratory: No no symptoms reported, No see HPI; cough (Nonproductive), dyspnea on exertion; No hemoptysis, No orthopnea, No phlegm; short of breath; No stridor, No wheezing Cardiovascular: see HPI, chest pain (Right sided pleuritic in etiology), edema (On echo reported stable mild lower extremity edema) Physical Exam Physical Exam Vital Signs Vital Signs - First Documented 08/23/17 08/23/17 12:41 17:30 Temp 97.5 Pulse 70 Resp 20 B/P (MAP) 167/70 (102) Pulse Ox 93 O2 Delivery Room Air FiO2 93 Capillary Refill : Less Than 3 SecondsLess Than 3 Seconds General Appearance: Mild Distress, Obese Neck: Full Range of Motion, Normal Inspection, Non Tender Respiratory: Chest Non Tender, Lungs Clear, Normal Breath Sounds, No Accessory Muscle Use, Respiratory Distress (Mild and only with when coughing which was nonproductive during the interview and only aggravated when he had the patient take deep breaths) Cardiovascular: Regular Rate, Rhythm, No Edema, No Gallop, No JVD, No Murmur Extremity: Other (1+ edema to the upper tibia bilaterally with chronic venous insufficiency changes no evidence for ulceration or erythema) Neurologic/Psychiatric: Alert, Oriented x3, No Motor/Sensory Deficits, Normal Mood/Affect Skin: Normal Color, Warm/Dry Results Results/Procedures Labs Laboratory Tests 08/23/17 13:43 08/24/17 05:49 Patient resulted labs reviewed. Assessment/Plan Admission Diagnosis A/P 1. Left lower lobe infiltrate versus atelectasis atypical pneumonia versus noninfectious etiologies for cough. We'll add Levaquin for atypical coverage considering that his white count is mildly elevated. Considering protracted course will consult Dr. Collier in the morning. While the patient hasn't smoked in over 20 years he does have a past roughly 75+ pack year smoking history. We' ll add anticholinergic therapy in the form of Spiriva. Possible CT chest defer to Dr. Collier 2. Mildly elevated BNP level with hypertension on admission which is now moderating. We will obtain echocardiography to evaluate systolic and diastolic LV function. 3. Thrombophilia hold Coumadin. As long as patient is on Levaquin he will likely need a significantly reduced dose continue INR monitoring. 4. Type II diabetes continue home antidiabetic medication and glucose monitoring. Admission Status: Inpatient Order (span 2 midnights) Reason for Inpatient Admission: Aspirin admission diagnosis Clinical Quality Measures DVT/VTE Risk/Contraindication: Risk Factor Score Per Nursin RFS Level Per Nursing on Admit: 4+=Very High BRENDAN ESPOSITO MD Aug 24, 2017 11:53
[2017-08-24 12:00] VITALS: BP 130/77
[2017-08-24] MEDS ORDERED: LEVOFLOXACIN 500 MG TAB (LEVAQUIN) PO NR (12:15)
[2017-08-24] MEDS: cefTRIAXone INJECTION 1,000 MG in NS (IVPB) 50 ML IV SCH (15:30)
[2017-08-24 16:11] VITALS: BP 150/72
[2017-08-24 20:00] VITALS: BP 151/69
[2017-08-24] MEDS: inSUlin DETERMIR 1 UNIT/0.01 ML (LEVEMIR) CHARGE PER UNIT SQ SCH (20:07)
[2017-08-24] MEDS: ATORVASTATIN 40 MG (LIPITOR) TABLET PO SCH (20:07)
[2017-08-24] MEDS: CYCLOBENZAPRINE 10 MG (FLEXERIL) TAB PO SCH (20:07)
[2017-08-24 23:26] VITALS: BP 129/59
[2017-08-25] MEDS: RT-ALBUTEROL/IPRATROPIUM 3 ML (DUONEB) VIAL INH SCH ×2 (01:20→10:08)
[2017-08-25] MEDS: inSUlin ASPART (NovoLOG) 1 UNIT/0.01 ML (CHARGE PER UNIT) SC SCH ×2 (05:20→13:11)
[2017-08-25] MEDS: metFORMIN 500 MG (GLUCOPHAGE) TAB PO SCH (06:02)
[2017-08-25] MEDS: glipiZIDE 5 MG (GLUCOTROL) TAB PO SCH (06:02)
[2017-08-25 06:07] LABS: INR 1.8 (0.8-1.4); PROTHROMBIN TIME PATIENT 20.8 SEC (12.2-14.7)
[2017-08-25] MEDS: CATHETER FLUSH 10 ML SYR IV SCH ×2 (06:17→14:01)
[2017-08-25 08:00] VITALS: BP 101/53
[2017-08-25] MEDS: meTOprolol TARTRATE 50 MG (LOPRESSOR) TAB PO SCH (09:51)
[2017-08-25] MEDS: cefTRIAXone INJECTION 1,000 MG in NS (IVPB) 50 ML IV SCH (09:51)
[2017-08-25] MEDS ORDERED: LEVOFLOXACIN 500 MG TAB (LEVAQUIN) PO SCH (11:00)
[2017-08-25] MEDS ORDERED: AMLO5TAB2 PO (11:33)
[2017-08-25] MEDS ORDERED: FENO145T37 PO (11:33)
[2017-08-25] MEDS ORDERED: CHOL20003 PO (11:33)
[2017-08-25] MEDS ORDERED: CYCL10TA9 PO (11:33)
[2017-08-25] MEDS ORDERED: MAGN400T6 PO (11:33)
[2017-08-25] MEDS ORDERED: METO100T12 PO (11:33)
[2017-08-25] MEDS ORDERED: ROPI0.5T2 PO (11:33)
[2017-08-25] MEDS ORDERED: ATOR40TA70 PO (11:33)
[2017-08-25] MEDS ORDERED: WARF-48 PO (11:33)
[2017-08-25] MEDS ORDERED: NYST60PO TOP (11:33)
[2017-08-25] MEDS ORDERED: METF10002 PO (11:33)
[2017-08-25] MEDS ORDERED: GLIP10TA13 PO (11:33)
--- NOTE | 2017-08-25 13:01 | Discharge Summary ---
Diagnosis/Chief Complaint Date of Admission Aug 23, 2017 at 15:28 Date of Discharge August 25 2017 Admission Diagnosis Admission Diagnosis 1. Left lower lobe infiltrate versus atelectasis vs atypical pneumonia versus noninfectious etiologies for cough. 2. Mildly elevated BNP 3. Thrombophilia 4. Type II diabetes 5. Hypertension Discharge Diagnosis atypical pneumonia persistent cough Mildly elevated BNP hypercoagulable state- resolved Type II diabetes with hyperglycemia Hypertension Reason Hospital Visit The patient is a 77-year-old white male who first noted the onset of head congestion without chills fever or sore throat. It rapidly progressed to a non- productive cough associated with fatigue. He also had some associated chest pain with this coughing and he reports with coughing spasms he becomes diaphoretic. After 3 weeks of symptoms he presented to Dr. Petersen's office at which time he received a Z-Abdoul and what sounds like Tessalon Perles for his cough. He finished this yesterday and has not noted any improvement. He has not been able to bring up any sputum continues to feel fatigued without any other overt infectious symptomatology. 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 His Coumadin was held last night's as his INR was 4.3 making thromboembolic issues highly unlikely. He reports no past history of pneumonia Discharge Summary Hospital Course Hospital Course 77-year-old male admitted for persistent cough and atypical pneumonia. He had completed a course of azithromycin and on admission was started on Levaquin and Rocephin. chest x-ray was unimpressive. Patient did not require supplemental oxygen. It was noted on admission his INR was greater than 4 so his Coumadin was held for 2 days. INR then trended down below 2 which patient's goal INR is 3. Definitely keep his INRbetween 2.5 and 3. On discharge his warfarin was continued. As for his diabetes his home insulin was continued with the sliding scale. Blood pressure was okay during his hospital stay. On day of discharge patient reported feeling closer to baseline but still had the persistent cough that is worse with lying down. An echocardiogram was obtained but had not been read prior to discharge. Resume warfarin 7.5mg recheck your INR on 08/27/17 complete 4 more days of levofloxacin- fish bait picker at [facility] pharmacy we will call in a cough medicine as well ---Pending test- echocardiogram. follow-up at [facility] in 2 weeks Labs Laboratory Tests 08/24/17 16:10: Glucometer 155H 08/24/17 20:18: Glucometer 182H 08/25/17 05:11: Glucometer 118H 08/25/17 05:20: Prothrombin Time 20.8H, INR Comment 1.8H 08/25/17 11:56: Glucometer 169H Procedures None. Discharge Physical Examination Allergies: Coded Allergies: meperidine (Verified Allergy, Unknown, 08/23/17) Vitals & I&Os Vital Signs Date Time Temp Pulse Resp B/P (MAP) Pulse Ox O2 Delivery O2 Flow Rate FiO2 08/25/17 10:08 93 Room Air 21 08/25/17 08:00 98.2 94 20 101/53 (69) General Appearance: Alert, Oriented X3, Cooperative HEENT: Atraumatic Cardiovascular: Regular Rate Abdominal: Normal Bowel Sounds, Soft Neuro: Normal Speech, Strength at 5/5 X4 Ext Psych/Mental Status: Mental Status NL, Mood NL Discharge Home Medications Reviewed and agree with Discharge Medication list on patient's Discharge Instruction sheet Condition at Discharge stable Instructions to Patient/Family Please see electronic discharge instructions given to patient. Clinical Quality Measures DVT/VTE Risk/Contraindication: Risk Factor Score Per Nursin RFS Level Per Nursing on Admit: 4+=Very High AL PETERSEN MD Aug 25, 2017 13:01
[2017-08-25] MEDS ORDERED: LEVO500T80 PO (13:03)
--- NOTE | 2017-08-25 13:05 | Discharge Inst-Simple/Standard ---
Discharge Inst-Standard Patient Instructions/Follow Up Plan of Care/Instructions/FU: Resume warfarin 7.5mg recheck your INR on 08/27/17 complete 4 more days of levofloxacin- moss picker at [facility] pharmacy we will call in a cough medicine as well ---Pending test- echocardiogram. Activity as Tolerated: Yes Discharge Diet: ADA Diet Return to [facility] Hospital For: worsening respiratory symptoms Planned Outpatient Orders/Ref. Pneu Vac Indicated: Yes AL PETERSEN MD Aug 25, 2017 13:05
[2017-08-25] MEDS ORDERED: GUAI120L56 PO (13:08)
[2017-08-25] MEDS ORDERED: ENOXAPARIN 40 MG/0.4 ML (LOVENOX) SYR SC NR (13:15)
[2017-08-25] MEDS ORDERED: warFARin 7.5 MG (COUMADIN) TAB PO SCH (18:00)
[2017-08-25] MEDS ORDERED: CYCLOBENZAPRINE 10 MG (FLEXERIL) TAB PO SCH (21:00)
[2017-08-25] MEDS ORDERED: warFARin 5 MG (COUMADIN) TAB PO SCH (21:00)
[2017-08-25] MEDS ORDERED: NON-FORMULARY MEDICATION 1 EA EA (Metoprolol Tartrate 100 MG) PO SCH (21:00)
[2017-08-25] MEDS ORDERED: meTOprolol TARTRATE 50 MG (LOPRESSOR) TAB PO SCH (21:00)
[2017-08-25] MEDS ORDERED: ATORVASTATIN 40 MG (LIPITOR) TABLET PO SCH (21:00)
[2017-08-26] MEDS ORDERED: amLODIPine 5 MG (NORVASC) TAB PO SCH (09:00)
[2017-08-26] MEDS ORDERED: NON-FORMULARY MEDICATION 1 EA EA (Amlodipine Besylate 5 MG) PO SCH (09:00)
== END 2017-08-25 14:13 | disposition home or self-care (01) | DRG 194 ==
LOC: EDUNIT# 12:29 → ER 12:32 → 4TH 15:28
PROVIDERS: ADMIT Internal Medicine; ATTEND Family Medicine
DX: J18.9 Pneumonia, unspecified organism (principal); J44.0 Chronic obstructive pulmonary disease with (acute) lower respiratory infection; J98.11 Atelectasis; D68.2 Hereditary deficiency of other clotting factors; I10 Essential (primary) hypertension; G47.30 Sleep apnea, unspecified; E11.9 Type 2 diabetes mellitus without complications; K21.9 Gastro-esophageal reflux disease without esophagitis; R13.10 Dysphagia, unspecified; N40.0 Benign prostatic hyperplasia without lower urinary tract symptoms; K44.9 Diaphragmatic hernia without obstruction or gangrene; K57.90 Diverticulosis of intestine, part unspecified, without perforation or abscess without bleeding; M19.91 Primary osteoarthritis, unspecified site; Z87.891 Personal history of nicotine dependence; Z85.528 Personal history of other malignant neoplasm of kidney; Z79.84 Long term (current) use of oral hypoglycemic drugs; Z86.718 Personal history of other venous thrombosis and embolism; Z79.01 Long term (current) use of anticoagulants
CPT/HCPCS: 36415; 71046; 80048; 80053; 82962; 83605; 83880; 85025; 85610; 85730; 86141; 87040; 87070; 87205; 93320; 94640; 94664; 94760; 96374

== ENCOUNTER → 2018-02-23 | Outpatient (CLI) | payer MEDICARE ==
[~2018-02-23] MED LIST changes: +AMLO5TAB7 PO; +CHOL20003 PO; +CYCL10TA9 PO; +FENO145T37 PO; +GUAI120L56 PO; +LEVO500T80 PO; +MAGN400T6 PO; +METF-399 PO; +METO100T12 PO; +NYST60PO TOP; +ROPI0.5T2 PO; +WARF-48 PO
--- NOTE | 2018-02-23 13:41 | Diagnostic Imaging Report ---
INDICATION: RIB PAIN DYSPNEA COMPARISON: 08/23/2017. FINDINGS: Frontal and lateral views of the chest demonstrate normal heart size and pulmonary vascularity. The lungs are clear. There are no signs of infiltrate, pleural effusions or pneumothoraces. The visualized osseous structures show no acute abnormalities. IMPRESSION: 1. No acute process. No signs of infiltrates, effusions or pneumothoraces. Dictated by: Dictated on workstation # [id number]
== END ==
LOC: RAD 09:43
PROVIDERS: ATTEND Family Medicine
DX: R07.81 Pleurodynia (principal); R06.09 Other forms of dyspnea
CPT/HCPCS: 71046

== ENCOUNTER 2018-10-02 22:31 | Emergency (ER) | payer MEDICARE ==
[~2018-10-02] VITALS: Ht 177.8 cm; Wt 118.9 kg
[~2018-10-02 22:31] MED LIST changes: -AMLO5TAB7 PO; +AMLO5TAB9 PO
--- OUTSIDE RECORDS SUMMARY | 2018-10-02 22:36 | XMS REPORT | Clinical Summary ---
Author Author [facility] Organization [facility] Address Unknown Phone Unavailable Care Team Providers Care Boatswains Mate Name Role Phone Dennise Sesay MD Unavailable Meche Nathan RN Unavailable Joel Palma MD Unavailable Geno Clayton RN Unavailable Unavailable Molly Moe RN Unavailable Unavailable Lorena Rivera LPN Unavailable Unavailable Bessy Lezama PHARMD Unavailable Unavailable Victoriano Ashley PHARMD Unavailable Unavailable Dustin Hart MD PCP Source Comments Some departments are not documenting in the electronic medical record. If you d o not see the information that you expected, contact Release of Information in [facility] Health Information Management department at [phone] for further assistan ce in locating additional records.[facility] Allergies No Known Allergies Medications End Date Status Medication Sig Dispensed Refills Start Date Active glipiZIDE (GLUCOTROL) 10 Take 10 mg by 0 mg tablet mouth twice daily. Active warfarin (COUMADIN) 5 mg Take 7.5 mg 0 tablet by mouth twice weekly. Friday, Active atorvastatin (LIPITOR) 40 Take 40 mg by 0 mg tablet mouth at bedtime daily. Active niacin SR (ENDUR-ACIN) Take 750 mg 0 500 mg tablet by mouth twice daily. Active magnesium oxide (MAG-OX) Take 400 mg 0 400 mg tablet by mouth daily. Active Cholecalciferol (Vitamin Take 5,000 0 D3) 5,000 unit tab Units by mouth twice weekly. Fridays, he is taking Rx Vitamin D 50,000 units Active cyclobenzaprine Take 10 mg by 0 (FLEXERIL) 10 mg tablet mouth at bedtime daily. Active cyanocobalamin (VITAMIN Inject 1,000 0 B-12, RUBRAMIN) 1,000 mcg to mcg/mL injection area(s) as directed every 30 days. Active metFORMIN (GLUCOPHAGE) Take 1,000 mg 0 1,000 mg tablet by mouth twice daily with meals. Active metoprolol (LOPRESSOR) 50 Take 50 mg by 0 mg tablet mouth twice daily. Active warfarin (COUMADIN) 10 mg Take 10 mg by 0 tablet mouth five times weekly. Friday, Friday, Friday, Friday, Friday Active insulin glargine (LANTUS) Inject 54 0 100 unit/mL injection Units into area(s) as directed at bedtime daily. Active HYDROCODONE BIT/HOMATROP Take by 0 ME-BR (HYDROCODONE mouth as COMPOUND PO) Needed. Active gabapentin (NEURONTIN) Take 300 mg 0 300 mg capsule by mouth daily. Active linagliptin (TRADJENTA) 5 Take 2.5 mg 0 mg tab by mouth daily. 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 Carotid artery plaque 07/05/2014 Diabetes 07/05/2014 Cancer of kidney 05/27/2013 Overview: 05/27/13 [...] Hypertriglyceridemia 05/18/2013 Factor 5 Leiden mutation, heterozygous 05/18/2013 DVT (deep venous thrombosis) 05/18/2013 Pulmonary embolism 05/18/2013 Vitamin D deficiency 05/18/2013 Resolved Problems Problem Noted Date Resolved Date Diabetes mellitus 05/18/2013 07/05/2014 Family History Medical History Relation Name Comments Bleeding Disorders Other Diabetes Other Heart Disease Other Stroke Other Relation Name Status Comments Other Social History Date Tobacco Use Types Packs/Day Years Used Former Smoker Cigarettes 3 35 Smokeless Tobacco: Never Used Tobacco Cessation: Counseling Given: No Drinks/Week oz/Week Comments Alcohol Use No Sex Assigned at Date Recorded Not on file Industry Job Start Date Occupation Not on file Not on file Not on file Travel End Travel History Travel Start No recent travel history available. Last Filed Vital Signs Reading Time Taken Comments Vital Sign 132/77 07/16/2016 12:50 PM CDT Blood Pressure 76 07/16/2016 12:50 PM CDT Pulse 36.7 C (98 F) 05/29/2013 8:00 AM HEALTH POLICY ANALYST Temperature 16 07/11/2015 1:50 PM CDT Respiratory Rate 96% 05/29/2013 8:00 AM HEALTH POLICY ANALYST Oxygen Saturation - - Inhaled Oxygen Concentration 122.9 kg (271 lb) 07/16/2016 12:50 PM CDT Weight 175.3 cm (5' 9") 07/16/2016 12:50 PM CDT Height 40.02 07/16/2016 12:50 PM CDT Body Mass Index Plan of Treatment Health Maintenance Due Date Last Done Comments PHYSICAL (COMPREHENSIVE) 1947 EXAM DILATED EYE EXAM 1957 DTAP/TDAP VACCINES (1 - 1957 Tdap) FOOT EXAM 1957 MICROALBUMIN 1957 SHINGLES RECOMBINANT 1989 VACCINE (1 of 2) PNEUMONIA (PCV13/PPSV23) 01/05/2004 VACCINES (1 of 2 - PCV13) HBA1C 01/10/2016 07/11/2015, 01/03/2015, 07/05/2014, Additional history exists INFLUENZA VACCINE 12/22/2018 Results Not on filefrom Last 3 Months Insurance Type Payer Benefit Subscriber ID Effective Phone Address Plan / Dates Group Medicare MEDICARE MEDICARE xxxxxxxxxx 2003- PART A AND Present B PPO [facility] AAR xxxxxxxxxxx 2011-P resent Advance Directives Patient City Route Driver Explanation Type Date Recorded Advance 05/18/2013 10:22 AM Directive/DPOA Date Inactivated Comments Code Status Date Activated 05/30/2013 9:20 AM Full Code 05/27/2013 1:00 PM Provider has discussed Code Status Yes w/Patient or Family? 05/27/2013 1:00 PM Full Code 05/27/2013 9:39 AM Provider has discussed Code Status Yes w/Patient or Family? 05/27/2013 9:39 AM Full Code 05/27/2013 9:38 AM Provider has discussed Code Status Yes w/Patient or Family?
--- OUTSIDE RECORDS SUMMARY | 2018-10-02 22:38 | XMS REPORT | Continuity of Care Document ---
Author Organization Unknown Address Unknown Allergies Active Description Code Type Severity Reaction Onset Reported/Identified Relationship to Patient Clinical Status Yes meperidine [id number] Drug Allergy Unknown N/A 08/23/2017 Medications There is no data. Problems Date [...] DUNNE MD Ot 414.01 CORONARY ATHEROSCLEROSIS OF [place] CORON 12/15/2012 RADHA DUNNE MD Ot 459.81 [...] DO, KAILYN Barros Ot E000.8 11/08/2014 HUTCHINS DO, KAILYN Barros Ot E849.0 11/08/2014 HUTCHINS , [...] STATUS 06/15/2016 YAN TELLEZ MD Ot Z79.84 USP (CURRENT) USE OF ORAL HYPOGLYC 06/15/2016 YAN TELLEZ MD Ot Z79.899 OTHER HAND BUTTON SPLITTER (CURRENT) DRUG THERAPY 06/17/2016 YAN TELLEZ MD [...] STATUS 06/17/2016 YAN TELLEZ MD Ot Z79.84 HAND BUTTON SPLITTER (CURRENT) USE OF ORAL HYPOGLYC 06/17/2016 YAN TELLEZ MD Ot Z79.899 OTHER USP (CURRENT) DRUG THERAPY 12/04/2016 YAN TELLEZ MD [...] STATUS 12/04/2016 YAN TELLEZ MD Ot Z79.84 USP (CURRENT) USE OF ORAL HYPOGLYC 12/04/2016 GEOFF ABERNATHY, YAN Taylor Ot Z79.899 OTHER USP (CURRENT) DRUG THERAPY 08/25/2017 AL PETERSEN MD, Ot C64.9 MALIGNANT NEOPLASM OF UNSP KIDNEY, EXCEP 08/25/2017 AL PETERSEN MD, Ot D68.2 HEREDITARY DEFICIENCY OF OTHER CLOTTING 08/25/2017 AL PETERSEN MD, Ot E11.9 TYPE 2 DIABETES MELLITUS WITHOUT COMPLIC 08/25/2017 AL PETERSEN MD, Ot G47.30 SLEEP APNEA, UNSPECIFIED 08/25/2017 AL PETERSEN MD, Ot I10 ESSENTIAL (PRIMARY) HYPERTENSION 08/25/2017 AL PETERSEN MD, Ot J18.9 PNEUMONIA, UNSPECIFIED ORGANISM 08/25/2017 AL PETERSEN MD, Ot J44.0 CHRONIC OBSTRUCTIVE PULMON DISEASE W ACU 08/25/2017 AL PETERSEN MD, Ot K21.9 GASTRO-ESOPHAGEAL REFLUX DISEASE WITHOUT 08/25/2017 AL PETERSEN MD, Ot K44.9 DIAPHRAGMATIC HERNIA WITHOUT OBSTRUCTION 08/25/2017 AL PETERSEN MD, Ot K57.90 DVRTCLOS OF INTEST, PART UNSP, W/O PERF 08/25/2017 AL PETERSEN MD, Ot M19.91 PRIMARY OSTEOARTHRITIS, UNSPECIFIED SITE 08/25/2017 AL PETERSEN MD, Ot N40.0 BENIGN PROSTATIC HYPERPLASIA WITHOUT LOW 08/25/2017 AL PETERSEN MD, Ot R13.10 DYSPHAGIA, UNSPECIFIED 08/25/2017 AL PETERSEN MD, Ot Z79.84 HAND BUTTON SPLITTER (CURRENT) USE OF ORAL HYPOGLYC 08/25/2017 AL PETERSEN MD, Ot Z86.718 PERSONAL HISTORY OF OTHER VENOUS THROMBO 08/25/2017 AL PETERSEN MD, Ot Z87.891 PERSONAL HISTORY OF NICOTINE DEPENDENCE 08/25/2017 LA PETERSEN MD, Ot C64.9 MALIGNANT NEOPLASM OF UNSP KIDNEY, EXCEP 08/25/2017 AL PETERSEN MD, Ot D68.2 HEREDITARY DEFICIENCY OF OTHER CLOTTING 08/25/2017 AL PETERSEN MD, Ot E11.9 TYPE 2 DIABETES MELLITUS WITHOUT COMPLIC 08/25/2017 AL PETERSEN MD, Ot G47.30 SLEEP APNEA, UNSPECIFIED 08/25/2017 TRINITY MD, AL C Ot I10 ESSENTIAL (PRIMARY) HYPERTENSION 08/25/2017 AL PETERSEN MD, Ot J18.9 PNEUMONIA, UNSPECIFIED ORGANISM 08/25/2017 AL PETERSEN MD, Ot J44.0 CHRONIC OBSTRUCTIVE PULMON DISEASE W ACU 08/25/2017 AL PETERSEN MD, Ot J98.11 ATELECTASIS 08/25/2017 AL PETERSEN MD, Ot K21.9 GASTRO-ESOPHAGEAL REFLUX DISEASE WITHOUT 08/25/2017 AL PETERSEN MD, Ot K44.9 DIAPHRAGMATIC HERNIA WITHOUT OBSTRUCTION 08/25/2017 AL PETERSEN MD, Ot K57.90 DVRTCLOS OF INTEST, PART UNSP, W/O PERF 08/25/2017 AL PETERSEN MD, Ot M19.91 PRIMARY OSTEOARTHRITIS, UNSPECIFIED SITE 08/25/2017 AL PETERSEN MD, Ot N40.0 BENIGN PROSTATIC HYPERPLASIA WITHOUT LOW 08/25/2017 AL PETERSEN MD, Ot R13.10 DYSPHAGIA, UNSPECIFIED 08/25/2017 AL PETERSEN MD, Ot Z79.01 USP (CURRENT) USE OF ANTICOAGULANT 08/25/2017 AL PETERSEN MD Ot Z79.84 USP (CURRENT) USE OF ORAL HYPOGLYC 08/25/2017 AL PETERSEN MD, Ot Z85.528 PERSONAL HISTORY OF OTHER MALIGNANT NEOP 08/25/2017 AL PETERSEN MD, Ot Z86.718 PERSONAL HISTORY OF OTHER VENOUS THROMBO 08/25/2017 AL PETERSEN MD, Ot Z87.891 PERSONAL HISTORY OF NICOTINE DEPENDENCE 02/23/2018 RADHA DUNNE MD Ot 785.0 TACHYCARDIA NOS 02/23/2018 RADHA DUNNE MD Ot V58.69 OTH MED,LT,CURRENT USE 02/23/2018 ELY COREY MD Ot V72.84 EXAM PRE-OPERATIVE NOS 02/23/2018 ELY COREY MD Ot 891.0 OPEN WND KNEE/LEG/ANKLE 02/23/2018 ELY COREY MD Ot E000.8 OTHER EXTERNAL CAUSE STATUS 02/23/2018 ELY COREY MD Ot E928.9 ACCIDENT NOS 02/23/2018 DEANNA VARELA MD Ot 272.4 HYPERLIPIDEMIA NEC/NOS 02/23/2018 DEANNA VARELA MD Ot 401.9 HYPERTENSION NOS 02/23/2018 DEANNA VARELA MD Ot 433.10 CAROTID ARTERY OCCLUSION W O CEREBRAL IN 02/23/2018 DEANNA VARELA MD Ot 453.40 ACUTE VENOUS EMBOLISM THROMBOSIS UNSP 02/23/2018 KAILYN HUTCHINS DO Ot 959.7 LOWER LEG INJURY NOS 02/23/2018 KAILYN HUTCHINS DO Ot E000.8 OTHER EXTERNAL CAUSE STATUS 02/23/2018 KAILYN HUTCHINS DO Ot E849.0 ACCIDENT IN HOME 02/23/2018 KAILYN HUTCHINS DO Ot E928.9 ACCIDENT NOS 02/23/2018 LIZETH DPM, SURENDRA Q Ot M25.572 PAIN IN LEFT ANKLE AND JOINTS OF LEFT FO 02/23/2018 LIZETH DPM, SURENDRA Q Ot M79.662 PAIN IN LEFT LOWER LEG 02/23/2018 LIZETH DPM, SURENDRA Q Ot M79.672 PAIN IN LEFT FOOT 02/23/2018 LISET MARSHAESE MOE Ot E01.0 IODINE-DEFICIENCY RELATED DIFFUSE (ENDEM 02/24/2018 AL PETERSEN MD Ot R06.09 OTHER FORMS OF DYSPNEA 02/24/2018 AL PETERSEN MD Ot R07.81 PLEURODYNIA 03/21/2018 AL PETERSEN MD Ot R06.09 OTHER FORMS OF DYSPNEA 03/21/2018 AL PETERSEN MD Ot R07.81 PLEURODYNIA 04/03/2018 AL PETERSEN MD Ot R06.09 OTHER FORMS OF DYSPNEA 04/03/2018 AL PETERSEN MD Ot R07.81 PLEURODYNIA Procedures There is no data. Results Test [...] Automated erythrocyte mean corpuscular hemoglobin concentration measurement (mass/volume) 34 g/dL 32-36 Automated erythrocyte distribution width ratio 14.7 % 10.0- 14.5 Automated blood platelet count (count/volume) 191 10*3/uL [...] Blood monocytes automated count (number/volume) 1.4 10*3 0.0- 1.0 Automated eosinophil count 0.2 10*3/uL 0.0-0.3 Automated [...] Serum or plasma aspartate aminotransferase measurement (enzymatic activity/volume) 20 U/L 5-34 Serum or plasma alanine aminotransferase measurement (enzymatic activity/volume) 26 U/L 0-55 Serum or plasma protein measurement (mass/volume) 6.3 g/dL 6.4-8.2 Serum or plasma albumin measurement (mass/volume) 3.5 g/dL 3.2-4.5 Serum or plasma C reactive protein measurement (mass/volume) - 08/23/17 13:43 Serum or plasma C reactive protein measurement (mass/volume) 4.29 mg/dL 0.00-0.50 Serum or plasma lithium measurement (moles/volume) [...] poor plasma bycoagulation assay 66 s 24-35 Sputum Gram stain - 08/23/17 14:45 Sputum Gram stain Numerous WBC's, and mixed bacterial brissa NR Bacterial sputum culture - 08/23/17 14:45 Bacterial sputum culture NORMAL NR Bacterial blood culture - 08/23/17 15:25 Bacterial blood culture NG [facility] Blood lactic acid measurement (moles/volume) - 08/23/17 15:40 Blood lactic acid measurement (moles/volume) 1.21 mmol/L 0.50- 2.00 Bacterial blood culture - 08/23/17 15:40 Bacterial blood culture NG [facility] Capillary blood glucose measurement by glucometer (mass/volume) - 08/23/17 21:01 Capillary blood glucose measurement by glucometer (mass/volume) 213 mg/dL 70-110 Capillary blood glucose measurement by glucometer (mass/volume) - 08/24/17 05:48 Capillary blood glucose measurement by glucometer (mass/volume) 125 mg/dL 70-110 Complete blood count (CBC) with automated white blood cell (WBC) differential - 08/24/17 05:49 Blood leukocytes automated count (number/volume) 10.8 10*3/uL 4.3-11.0 Blood erythrocytes automated count (number/volume) 4.43 10*6/uL 4.35-5.85 Venous blood hemoglobin measurement (mass/volume) 13.3 g/dL 13.3-17.7 Blood hematocrit (volume fraction) 40 % 40-54 Automated erythrocyte mean corpuscular volume 90 [foz_us] 80-99 Automated erythrocyte mean corpuscular hemoglobin (mass per erythrocyte) 30 pg 25-34 Automated erythrocyte mean corpuscular hemoglobin concentration measurement (mass/volume) 33 g/dL 32-36 Automated erythrocyte distribution width ratio 14.9 % 10.0- 14.5 Automated blood platelet count (count/volume) 193 10*3/uL 130-400 Automated blood platelet mean volume measurement 11.6 [foz_us] 7.4-10.4 Automated blood neutrophils/100 leukocytes 71 % 42-75 Automated blood lymphocytes/100 leukocytes 16 % 12-44 Blood monocytes/100 leukocytes 11 % 0-12 Automated blood eosinophils/100 leukocytes 2 % 0-10 Automated blood basophils/100 leukocytes 0 % 0-10 Blood neutrophils automated count (number/volume) 7.7 10*3 1.8-7.8 Blood lymphocytes automated count (number/volume) 1.8 10*3 1.0-4.0 Blood monocytes automated count (number/volume) 1.2 10*3 0.0- 1.0 Automated eosinophil count 0.2 10*3/uL 0.0-0.3 Automated blood basophil count (count/volume) 0.0 10*3/uL 0.0-0.1 PT panel in platelet poor plasma by coagulation assay - 08/24/17 05:49 Prothrombin time (PT) in platelet poor plasma by coagulation assay 32.8 s 12.2-14.7 INR in platelet poor plasma or blood by coagulation assay 3.2 0.8-1.4 Whole blood basic metabolic panel - 08/24/17 05:49 Serum or plasma sodium measurement (moles/volume) 138 mmol/L 135-145 Serum or plasma potassium measurement (moles/volume) 4.2 mmol/L 3.6-5.0 Serum or plasma chloride measurement (moles/volume) 108 mmol/L 98-107 Carbon dioxide 19 mmol/L 21-32 Serum or plasma anion gap determination (moles/volume) 11 mmol/L 5-14 Serum or plasma urea nitrogen measurement (mass/volume) 21 mg/dL 7-18 Serum or plasma creatinine measurement (mass/volume) 1.22 mg/dL 0.60-1.30 Serum or plasma urea nitrogen/creatinine mass ratio 17 NRG Serum or plasma creatinine measurement with calculation of estimated glomerular filtration rate 57 NRG Serum or plasma glucose measurement (mass/volume) 120 mg/dL 70-105 Serum or plasma calcium measurement (mass/volume) 8.8 mg/dL 8.5-10.1 Capillary blood glucose measurement by glucometer (mass/volume) - 08/24/17 11:05 Capillary blood glucose measurement by glucometer (mass/volume) 135 mg/dL 70-110 Capillary blood glucose measurement by glucometer (mass/volume) - 08/24/17 16:10 Capillary blood glucose measurement by glucometer (mass/volume) 155 mg/dL 70-110 Capillary blood glucose measurement by glucometer (mass/volume) - 08/24/17 20:18 Capillary blood glucose measurement by glucometer (mass/volume) 182 mg/dL 70-110 Capillary blood glucose measurement by glucometer (mass/volume) - 08/25/17 05:11 Capillary blood glucose measurement by glucometer (mass/volume) 118 mg/dL 70-110 PT panel in platelet poor plasma by coagulation assay - 08/25/17 05:20 Prothrombin time (PT) in platelet poor plasma by coagulation assay 20.8 s 12.2-14.7 INR in platelet poor plasma or blood by coagulation assay 1.8 0.8-1.4 Capillary blood glucose measurement by glucometer (mass/volume) - 08/25/17 11:56 Capillary blood glucose measurement by glucometer (mass/volume) 169 mg/dL 70-110 Encounters ACCT No. Visit Date/Time Discharge Status Pt. Type Provider Facility Loc./Unit Complaint [id number] 02/23/2018 09:43:00 02/23/2018 23:59:59 CLS Outpatient AL PETERSEN MD [facility] RAD RIB PAIN [id number] 08/23/2017 15:28:00 08/25/2017 14:13:00 DIS Inpatient AL PETERSEN MD [facility] 4TH PNUEMONIA LLL [id number] 06/15/2016 16:00:00 06/15/2016 17:34:00 DIS Emergency GEOFF ABERNATHY, YAN Taylor [facility] ER LEFT LEG PAIN [id number] 05/08/2016 08:17:00 05/08/2016 23:59:59 CLS Outpatient HUTCHINSMARSHA [facility] RAD THYROMEGALY [id number] 03/03/2015 09:52:00 03/03/2015 23:59:59 CLS Outpatient LIZETH DPM, SURENDRA Q [facility] RAD PAIN TO LEFT FOOT,ANKLE,CALF AND GROIN WITH EDEMA [id number] 09/29/2014 16:23:00 09/29/2014 23:59:59 CLS Outpatient KAILYN HUTCHINS DO [facility] RAD TRAUMA [id number] 04/12/2014 12:51:00 04/12/2014 23:59:59 CLS Outpatient DEANNA VARELA MD [facility] CARD FABRICE,DVT,HTN,EDEMA [id number] 12/10/2013 16:34:00 12/10/2013 23:59:59 CLS Outpatient [id number] 12/10/2013 14:30:00 12/10/2013 23:59:59 CLS Outpatient ELY COREY MD [facility] LABNPT (R) MEDIAL ANKLE WOUND [id number] 09/30/2013 17:05:00 09/30/2013 20:26:00 DIS Emergency RASHIDA CONNOLLY [facility] ER R THUMB LAC [id number] 12/13/2012 13:40:00 12/15/2012 12:00:00 DIS Inpatient RADHA DUNNE MD [facility] 4TH CHEST PAIN [id number] 10/15/2012 07:27:00 10/15/2012 10:40:00 DIS Outpatient ELY COREY MD [facility] SDC DYSPHAGIA [id number] 10/14/2012 08:11:00 10/14/2012 23:59:59 CLS Outpatient ELY COREY MD [facility] PREOP DYSPHAGIA [id number] 09/28/2012 12:30:00 09/28/2012 23:59:59 [facility] Outpatient UZAIR ABERNATHY, RADHA Zurita [facility] CARD TACHYCARDIA [id number] 05/15/2011 02:50:00 Document Registration
--- NOTE | 2018-10-02 22:49 | ED GU-Male ---
General Stated Complaint: BLOOD IN URINE Source: patient, family Exam Limitations: no limitations History of Present Illness Date Seen by Provider: Oct 02, 2018 Time Seen by Provider: 22:35 Initial Comments The patient presents to ER by private conveyance with his family and chief complaint for the past 3 minute durations today he has produced a bloody urine. No clots in the urine no difficulty urinating or hesitancy or feeling of incomplete emptying of his bladder. He takes warfarin for history of multiple blood clots in his legs. He also has a Rey filter vascular device. He also has had a partial colectomy for diverticulitis secondary to bleeding. He follows regularly with Dr. Nilson Petersen and denies having history of significant anemia. No blood per rectum. No pain no shortness of breath no decreased exercise tolerance. No history of coronary disease. He did have a kidney removed secondary to kidney cancer several years ago. He's never had a urethroscopy. He does have a history of diabetes. Allergies and Home Medications Allergies Coded Allergies: meperidine (Verified Allergy, Unknown, 08/23/17) Home Medications Amlodipine Besylate 5 Mg Tablet, 5 MG PO DAILY, (Reported) Atorvastatin Calcium 40 Mg Tablet, 40 MG PO HS, (Reported) Cholecalciferol (Vitamin D3) 2,000 Unit Capsule, 2,000 UNIT PO BID, (Reported) Cyclobenzaprine HCl 10 Mg Tablet, 10 MG PO HS, (Reported) Fenofibrate Nanocrystallized 145 Mg Tablet, 72.5 MG PO DAILY, (Reported) TAKES 1/2 (145MG) TABLET Glipizide 10 Mg Tablet, 10 MG PO BID, (Reported) Guaifenesin/Codeine Phosphate 120 Ml Liquid, 10 ML PO Q6H PRN for COUGH Prescribed by: NILSON PETERSEN on 08/25/17 1308 Levofloxacin 500 Mg Tablet, 500 MG PO DAILY@11 Prescribed by: NILSON PETERSEN on 08/25/17 1303 Magnesium Oxide 400 Mg Tablet, 400 MG PO DAILY, (Reported) Metformin HCl 1,000 Mg Tablet, 1,000 MG PO DAILY, (Reported) Metoprolol Tartrate 100 Mg Tablet, 100 MG PO BID, (Reported) Nystatin 60 Gm Powder, TOP BID PRN for RASH, (Reported) Ropinirole HCl 0.5 Mg Tablet, 0.5 MG PO HS, (Reported) Warfarin Sodium 5 Mg Tablet, 7.5 MG PO HS, (Reported) TAKES 1 & 1/2 (5MG) TABLET Patient Home Medication List Home Medication List Reviewed: Yes Review of Systems Review of Systems Constitutional: No chills, No diaphoresis EENTM: No ear discharge, No ear pain Respiratory: No cough, No short of breath Cardiovascular: No chest pain, No edema Gastrointestinal: No abdominal pain, No constipation, No diarrhea, No dysphagia, No nausea Genitourinary: denies discharge, denies dysuria Musculoskeletal: No back pain, No joint pain Past Frupdks-Ktxarb-Vrzlcz Hx Patient Social History Alcohol Use: Denies Use Recreational Drug Use: No Smoking Status: Former Smoker Type Used: Cigarettes Former Smoker, Quit: Feb 06, 1952 Recent Foreign Travel: No Contact w/Someone Who Travel: No Recent Hopitalizations: No Immunizations Up To Date Tetanus Booster (TDap): Less than 5yrs Date of Pneumonia Vaccine: Oct 15, 2010 Date of Influenza Vaccine: Dec 22, 2010 Seasonal Allergies Seasonal Allergies: No Past Medical History Surgeries: Yes (REMOVAL ADHESIONS) Abdominal, Vascular Surgery Respiratory: Yes Sleep Apnea, COPD Cardiac: Yes Neurological: No Reproductive Disorders: No Benign Prostatic Hyperpl Gastrointestinal: Yes (DYSPHAGIA) Gastroesophageal Reflux, Obstructive Bowel, Diverticulosis, Hiatal Hernia Musculoskeletal: Yes (CHRONIC GENERALIZED PAIN) Arthritis Endocrine: Yes Diabetes, Non-Insulin dep Cancer: Yes Kidney Psychosocial: No Integumentary: No Blood Disorders: Yes (FACTOR 5 DEFICIENCY, MULTIPLE DVT'S) Physical Exam Vital Signs Vital Signs - First Documented 10/02/18 22:35 Temp 97.7 Pulse 80 Resp 20 B/P (MAP) 161/91 (114) Pulse Ox 93 Capillary Refill : Height, Weight, BMI Height: 5'10.00" Weight: 262lbs. 3.2oz. 118.394554er; 37.3 BMI Method:Estimated General Appearance: WD/WN, no apparent distress, obese HEENT: normal ENT inspection, pharynx normal Neck: non-tender, full range of motion, normal inspection Cardiovascular: normal peripheral pulses, regular rate, rhythm, no edema Respiratory: lungs clear, normal breath sounds, no respiratory distress, no accessory muscle use Gastrointestinal: normal bowel sounds, non tender, soft Back: no CVA tenderness, no vertebral tenderness Neurologic/Psychiatric: alert, normal mood/affect, oriented x 3 Skin: normal color, warm/dry Progress/Results/Core Measures Suspected Sepsis SIRS Temperature: Pulse: Respiratory Rate: Laboratory Tests 10/02/18 22:45: White Blood Count 8.8 Blood Pressure / Mean: Laboratory Tests 10/02/18 22:45: Creatinine 1.94H, INR Comment 3.1H, Platelet Count 214, Total Bilirubin 0.2 Results/Orders Lab Results Laboratory Tests Test 10/02/18 22:45 10/02/18 22:53 Range/Units White Blood Count 8.8 4.3-11.0 10^3/uL Red Blood Count 4.71 4.35-5.85 10^6/uL Hemoglobin 13.9 13.3-17.7 G/DL Hematocrit 42 40-54 % Mean Corpuscular Volume 89 80-99 FL Mean Corpuscular Hemoglobin 30 25-34 PG Mean Corpuscular Hemoglobin Concent 33 32-36 G/DL Red Cell Distribution Width 14.8 H 10.0-14.5 % Platelet Count 214 130-400 10^3/uL Mean Platelet Volume 11.3 H 7.4-10.4 FL Neutrophils (%) (Auto) 66 42-75 % Lymphocytes (%) (Auto) 21 12-44 % Monocytes (%) (Auto) 9 0-12 % Eosinophils (%) (Auto) 4 0-10 % Basophils (%) (Auto) 1 0-10 % Neutrophils # (Auto) 5.9 1.8-7.8 X 10^3 Lymphocytes # (Auto) 1.9 1.0-4.0 X 10^3 Monocytes # (Auto) 0.8 0.0-1.0 X 10^3 Eosinophils # (Auto) 0.3 0.0-0.3 10^3/uL Basophils # (Auto) 0.1 0.0-0.1 10^3/uL Prothrombin Time 33.2 H 12.2-14.7 SEC INR Comment 3.1 H 0.8-1.4 Sodium Level 142 135-145 MMOL/L Potassium Level 4.1 3.6-5.0 MMOL/L Chloride Level 108 H 98-107 MMOL/L Carbon Dioxide Level 22 21-32 MMOL/L Anion Gap 12 5-14 MMOL/L Blood Urea Nitrogen 29 H 7-18 MG/DL Creatinine 1.94 H 0.60-1.30 MG/DL Estimat Glomerular Filtration Rate 34 BUN/Creatinine Ratio 15 Glucose Level 177 H 70-105 MG/DL Calcium Level 9.9 8.5-10.1 MG/DL Corrected Calcium 9.9 8.5-10.1 MG/DL Total Bilirubin 0.2 0.1-1.0 MG/DL Aspartate Amino Transf (AST/SGOT) 22 5-34 U/L Alanine Aminotransferase (ALT/SGPT) 20 0-55 U/L Alkaline Phosphatase 54 40-136 U/L Total Protein 7.2 6.4-8.2 GM/DL Albumin 4.0 3.2-4.5 GM/DL Urine Color RED H Urine Clarity VERY CLOUDY H Urine pH 7 5-9 Urine Specific [place] 1.010 L 1.016-1.022 Urine Protein 4+ NEGATIVE Urine Glucose (UA) NEGATIVE NEGATIVE Urine Ketones NEGATIVE NEGATIVE Urine Nitrite NEGATIVE NEGATIVE Urine Bilirubin NEGATIVE NEGATIVE Urine Urobilinogen NORMAL NORMAL MG/DL Urine Leukocyte Esterase 1+ H NEGATIVE Urine RBC (Auto) 5+ H NEGATIVE Urine RBC TNTC H /HPF Urine WBC 10-25 H /HPF Urine Crystals NONE /LPF Urine Bacteria NEGATIVE /HPF Urine Casts NONE /LPF Urine Mucus NEGATIVE /LPF Urine Culture Indicated YES My Orders Orders - HELLEN BAILON Ua Culture If Indicated (10/02/18 22:35) Cbc With Automated Diff (10/02/18 22:42) Comprehensive Metabolic Panel (10/02/18 22:42) Protime With Inr (10/02/18 22:42) Urine Culture (10/02/18 22:53) Ed Iv/Invasive Line Start (10/02/18 23:25) Ns Iv 1000 Ml (Sodium Chloride 0.9%) (10/02/18 23:25) Ceftriaxone For Iv Use (Rocephin For I (10/02/18 23:45) Vital Signs/I&O 10/02/18 22:35 Temp 97.7 Pulse 80 Resp 20 B/P (MAP) 161/91 (114) Pulse Ox 93 Capillary Refill : Progress Note #1: Time: 22:51 Progress Note Other than the hematuria the patient seems to be a symptomatically not having any difficulty urinating. We will check for significant anemia and get some urine looking for infection. Plan to make referral to urology. Progress Note #2: Time: 00:13 Progress Note Elevation in creatinine. Plan to give him a liter fluids. Drinking well has no other symptoms. We'll let him follow-up outpatient. Departure Impression Primary Impression: Gross hematuria Additional Impression: Elevated serum creatinine Disposition: HOME, SELF-CARE Condition: Stable Departure-Patient Inst. Decision time for Depature: 00:13 Referrals: NILSON PETERSEN MD (PCP/Family) Primary Care Physician HERNANDEZ DANIELSON MD Patient Instructions: Blood in the Urine (Hematuria), Adult (DC) Add. Discharge Instructions: Drink plenty of fluids. Friday call Dr. Danielson and request an appointment to workup your hematuria. Return to the ER immediately. Difficulty urinating or feel like her bladder is not emptying fully. Keflex one capsule twice daily for the next week. Scripts Cephalexin (Cephalexin) 500 Mg Tablet 500 MG PO BID for 7 Days, #14 TAB 0 Refills Prov: HELLEN BAILON 10/03/18 HELLEN BAILON Oct 02, 2018 22:49
[2018-10-02 22:58] LABS: BASOPHILS # (AUTO) 0.1 10^3/uL (0.0-0.1); BASOPHILS % (AUTO) 1 % (0-10); EOSINOPHILS # (AUTO) 0.3 10^3/uL (0.0-0.3); EOSINOPHILS % (AUTO) 4 % (0-10); HEMATOCRIT 42 % (40-54); HEMOGLOBIN 13.9 G/DL (13.3-17.7); LYMPHOCYTES # (AUTO) 1.9 X 10^3 (1.0-4.0); LYMPHOCYTES % (AUTO) 21 % (12-44); MEAN CORPUSCULAR HEMOGLOBIN 30 PG (25-34); MEAN CORPUSCULAR HGB CONC 33 G/DL (32-36); MEAN CORPUSCULAR VOLUME 89 FL (80-99); MEAN PLATELET VOLUME 11.3 FL (7.4-10.4); MONOCYTES # (AUTO) 0.8 X 10^3 (0.0-1.0); MONOCYTES % (AUTO) 9 % (0-12); NEUTROPHILS # (AUTO) 5.9 X 10^3 (1.8-7.8); NEUTROPHILS % (AUTO) 66 % (42-75); PLATELET COUNT 214 10^3/uL (130-400); RED CELL DISTRIBUTION WIDTH 14.8 % (10.0-14.5); WHITE BLOOD COUNT 8.8 10^3/uL (4.3-11.0)
[2018-10-02 23:06] LABS: BILIRUBIN,URINE NEGATIVE (NEGATIVE); CLARITY,URINE VERY CLOUDY; COLOR,URINE RED; GLUCOSE, URINE (UA) NEGATIVE (NEGATIVE); KETONES,URINE NEGATIVE (NEGATIVE); LEUKOCYTE ESTERASE ,URINE 1+ (NEGATIVE); NITRITE,URINE NEGATIVE (NEGATIVE); PH,URINE 7 (5-9); PROTEIN,URINE 4+ (NEGATIVE); UROBILINOGEN,URINE NORMAL (NORMAL)
[2018-10-02 23:08] LABS: INR 3.1 (0.8-1.4); PROTHROMBIN TIME PATIENT 33.2 SEC (12.2-14.7)
[2018-10-02 23:15] LABS: CREATININE SERUM 1.94 MG/DL (0.60-1.30); POTASSIUM 4.1 MMOL/L (3.6-5.0)
[2018-10-02 23:16] LABS: BILIRUBIN,TOTAL 0.2 MG/DL (0.1-1.0); CALCIUM 9.9 MG/DL (8.5-10.1); TOTAL PROTEIN 7.2 GM/DL (6.4-8.2)
[2018-10-02 23:18] LABS: BACTERIA,URINE NEGATIVE /HPF; RBC,URINE TNTC /HPF
[2018-10-02] MEDS ORDERED: NS IV 1000 ML 1,000 ML IV SCH (23:25)
[2018-10-02] MEDS ORDERED: cefTRIAXone FOR IV USE 1,000 MG in WATER (STERILE) FOR INJECTION 10 ML IV ONE (23:45)
[2018-10-03] MEDS ORDERED: CEPH500T PO (00:15)
[2018-10-03 00:30] VITALS: BP 166/97
== END 2018-10-03 00:30 | disposition home or self-care (01) ==
LOC: EDUNIT# 22:31 → ER 22:33
DX: R31.0 Gross hematuria (principal); E11.9 Type 2 diabetes mellitus without complications; R79.89 Other specified abnormal findings of blood chemistry; J44.9 Chronic obstructive pulmonary disease, unspecified; G47.30 Sleep apnea, unspecified; N40.1 Benign prostatic hyperplasia with lower urinary tract symptoms; K21.9 Gastro-esophageal reflux disease without esophagitis; Z85.528 Personal history of other malignant neoplasm of kidney; Z79.01 Long term (current) use of anticoagulants; Z88.5 Allergy status to narcotic agent; Z79.84 Long term (current) use of oral hypoglycemic drugs; Z87.891 Personal history of nicotine dependence; Z86.718 Personal history of other venous thrombosis and embolism
CPT/HCPCS: 36415; 80053; 81000; 85025; 85610; 87088; 96361; 96365

== ENCOUNTER → 2018-10-05 | Outpatient (CLI) | payer MEDICARE ==
[~2018-10-05] MED LIST changes: +AZIT250T12 PO; +CEPH500T PO; +CHOL5000 PO; +FURO20TA4 PO; +LIDOCAINE UROJET 2% GEL 10 ML PKG ONE; +POTA20TA15 PO; +PRD20T PO; +WARF2.5T82 PO
--- NOTE | 2018-10-05 11:27 | Diagnostic Imaging Report ---
PROCEDURE: CT abdomen and pelvis without contrast. TECHNIQUE: Multiple contiguous axial images were obtained through the abdomen and pelvis without the use of intravenous contrast. Auto Exposure Controls were utilized during the CT exam to meet ALARA standards for radiation dose reduction. INDICATION: Hematuria. Patient has had prior left nephrectomy for renal cell carcinoma. Correlation is made with prior CT from 12/14/12. Imaging through the lung bases does show a small right and trace left pleural effusion. No discrete liver mass is identified. The gallbladder is surgically absent. No biliary ductal dilatation is seen. The pancreas and spleen are unremarkable. A cyst in the upper pole right kidney is again noted measuring 5.2 cm compared with 4.5 cm on prior. The left kidney is surgically absent. There is a filter in the IVC. There does appear to be mild right hydroureteronephrosis. The dilated right ureter is traced to the pelvis. There appears to be significant wall thickening involving the base of the urinary bladder particularly on the right side measuring up to a thickness of 19 mm. This is concerning for bladder neoplasm. Previously noted peripherally calcified fat density in the anterior midline of the abdomen is again seen measuring approximately 4.5 cm in diameter compared with 4.8 cm on prior. Bowel loops are nonobstructed. There is no ascites. The bony structures are nonacute. Impression: 1. Bilateral pleural effusions, right greater. 2. Status post left nephrectomy. 3. Right renal cyst. There is moderate right hydroureteronephrosis. This appears to be caused by a mass in the base of the right side of the urinary bladder, as described concerning for a urothelial neoplasm. Cystoscopy is recommended. No definite abdominal or pelvic lymphadenopathy is detected. Dictated by: Dictated on workstation # [id number]
== END ==
LOC: RAD 10:28
PROVIDERS: ATTEND Urology
DX: N13.30 Unspecified hydronephrosis (principal); N28.1 Cyst of kidney, acquired; J90 Pleural effusion, not elsewhere classified; Z90.5 Acquired absence of kidney
CPT/HCPCS: 74176

== ENCOUNTER 2018-10-06 12:20 | Inpatient (IN) | payer MEDICARE ==
[~2018-10-06] VITALS: Ht 177.8 cm; Wt 155.4 kg
[~2018-10-06 12:20] MED LIST changes: -AZIT250T12 PO; -CHOL5000 PO; -FURO20TA4 PO; -LIDOCAINE UROJET 2% GEL 10 ML PKG ONE; -POTA20TA15 PO; -PRD20T PO; -WARF2.5T82 PO
[2018-10-06] MEDS ORDERED: RT-ALBUTEROL/IPRATROPIUM 3 ML (DUONEB) VIAL ONE (12:32)
--- NOTE | 2018-10-06 12:44 | ED Respiratory ---
General Stated Complaint: PNEUMONIA Source: patient, family (granddaughter) Exam Limitations: no limitations History of Present Illness Date Seen by Provider: Oct 06, 2018 Time Seen by Provider: 12:24 Initial Comments Patient presents to ER by private conveyance with chief complaint that yesterday he was having some shortness of breath and went to his primary care doctor who started him on some azithromycin and steroids. Said he heard some crackles in his lungs so gave him some Lasix. Vision does not history of CHF weight gain orthopnea or swelling in hands or feet. He has no fevers but had some chills last night. No nausea vomiting chest pain. He was having oxygen sats in the 80s to 90s and into the low 80s when walking or exerting himself says granddaughter called the primary care doctor who told him to come out to the ER to be checked out. He's had a occasional cough nonproductive. No history of COPD or asthma. Does not use breathing treatments. On warfarin for history of DVTs. Recent history of hematuria being worked up outpatient by Dr. Giles, urology. Allergies and Home Medications Allergies Coded Allergies: meperidine (Verified Allergy, Unknown, 08/23/17) Home Medications Amlodipine Besylate 5 Mg Tablet, 5 MG PO DAILY, (Reported) Atorvastatin Calcium 40 Mg Tablet, 40 MG PO HS, (Reported) Cephalexin 500 Mg Tablet, 500 MG PO BID Prescribed by: HELLEN BAILON on 10/03/18 0015 Cholecalciferol (Vitamin D3) 2,000 Unit Capsule, 2,000 UNIT PO BID, (Reported) Cyclobenzaprine HCl 10 Mg Tablet, 10 MG PO HS, (Reported) Fenofibrate Nanocrystallized 145 Mg Tablet, 72.5 MG PO DAILY, (Reported) TAKES 1/2 (145MG) TABLET Glipizide 10 Mg Tablet, 10 MG PO BID, (Reported) Guaifenesin/Codeine Phosphate 120 Ml Liquid, 10 ML PO Q6H PRN for COUGH Prescribed by: AL PETERSEN on 08/25/17 1308 Levofloxacin 500 Mg Tablet, 500 MG PO DAILY@11 Prescribed by: AL PETERSEN on 08/25/17 1303 Magnesium Oxide 400 Mg Tablet, 400 MG PO DAILY, (Reported) Metformin HCl 1,000 Mg Tablet, 1,000 MG PO DAILY, (Reported) Metoprolol Tartrate 100 Mg Tablet, 100 MG PO BID, (Reported) Nystatin 60 Gm Powder, TOP BID PRN for RASH, (Reported) Ropinirole HCl 0.5 Mg Tablet, 0.5 MG PO HS, (Reported) Warfarin Sodium 5 Mg Tablet, 7.5 MG PO HS, (Reported) TAKES 1 & 1/2 (5MG) TABLET Patient Home Medication List Home Medication List Reviewed: Yes Review of Systems Review of Systems Constitutional: No chills, No fever EENTM: No ear pain, No eye pain Respiratory: cough, short of breath, wheezing Cardiovascular: No chest pain, No edema Gastrointestinal: No abdominal pain, No constipation, No diarrhea Genitourinary: No discharge, No dysuria Musculoskeletal: No back pain, No joint pain Past Zaopodz-Ukgkea-Ovafro Hx Patient Social History Alcohol Use: Denies Use Recreational Drug Use: No Smoking Status: Former Smoker Type Used: Cigarettes Former Smoker, Quit: Feb 06, 1952 2nd Hand Smoke Exposure: No Recent Hopitalizations: No Immunizations Up To Date Tetanus Booster (TDap): Less than 5yrs Date of Pneumonia Vaccine: Oct 15, 2010 Date of Influenza Vaccine: Dec 22, 2010 Seasonal Allergies Seasonal Allergies: No Past Medical History Surgeries: Yes (REMOVAL ADHESIONS, "removal of 2 feet of intestine") Abdominal, Vascular Surgery Respiratory: Yes Sleep Apnea, COPD Cardiac: Yes Hypertension Neurological: No Reproductive Disorders: No Genitourinary: No Benign Prostatic Hyperpl Gastrointestinal: Yes (DYSPHAGIA) Gastroesophageal Reflux, Obstructive Bowel, Diverticulosis, Hiatal Hernia Musculoskeletal: Yes (CHRONIC GENERALIZED PAIN) Arthritis Endocrine: Yes Diabetes, Non-Insulin dep HEENT: No Cancer: Yes Kidney What Type of Treatment Did You: Surgical Intervention Psychosocial: No Integumentary: No Blood Disorders: Yes (FACTOR 5 DEFICIENCY, MULTIPLE DVT'S) Physical Exam Vital Signs - First Documented Capillary Refill : Height: 5'10.00" Weight: 262lbs. 3.2oz. 118.084988dh; 37.3 BMI Method:Estimated General Appearance: WD/WN, no apparent distress Eyes: Bilateral Eye Normal Inspection, Bilateral Eye PERRL, Bilateral Eye EOMI HEENT: PERRL/EOMI, normal ENT inspection, pharynx normal Neck: full range of motion, normal inspection Respiratory: respiratory distress (mild to moderate on exertion), accessory muscle use (especially after exertion), wheezing (bilateral mild) Cardiovascular: normal peripheral pulses, regular rate, rhythm Gastrointestinal: normal bowel sounds, non tender, soft Neurologic/Psychiatric: alert, normal mood/affect, oriented x 3 Skin: normal color, warm/dry Focused Exam Lactate Level 10/06/18 12:42: Lactic Acid Level 2.45*H 10/06/18 14:44: Lactic Acid Level 2.10*H Lactic Acid Level Laboratory Tests Test 10/06/18 12:42 10/06/18 14:44 Lactic Acid Level 2.45 MMOL/L (0.50-2.00) *H 2.10 MMOL/L (0.50-2.00) *H Progress/Results/Core Measures Suspected Sepsis SIRS Temperature: Pulse: Respiratory Rate: Laboratory Tests 10/06/18 12:42: White Blood Count 12.0H Blood Pressure / Mean: 10/06/18 12:42: Lactic Acid Level 2.45*H 10/06/18 14:44: Lactic Acid Level 2.10*H Laboratory Tests 10/06/18 12:42: Creatinine 2.07H, INR Comment 3.2H, Platelet Count 198, Total Bilirubin 0.4 Results/Orders Lab Results Laboratory Tests Test 10/06/18 12:42 10/06/18 14:44 Range/Units White Blood Count 12.0 H 4.3-11.0 10^3/uL Red Blood Count 4.31 L 4.35-5.85 10^6/uL Hemoglobin 12.6 L 13.3-17.7 G/DL Hematocrit 38 L 40-54 % Mean Corpuscular Volume 88 80-99 FL Mean Corpuscular Hemoglobin 29 25-34 PG Mean Corpuscular Hemoglobin Concent 33 32-36 G/DL Red Cell Distribution Width 14.9 H 10.0-14.5 % Platelet Count 198 130-400 10^3/uL Mean Platelet Volume 11.4 H 7.4-10.4 FL Neutrophils (%) (Auto) 90 H 42-75 % Lymphocytes (%) (Auto) 8 L 12-44 % Monocytes (%) (Auto) 3 0-12 % Eosinophils (%) (Auto) 0 0-10 % Basophils (%) (Auto) 0 0-10 % Neutrophils # (Auto) 10.8 H 1.8-7.8 X 10^3 Lymphocytes # (Auto) 1.0 1.0-4.0 X 10^3 Monocytes # (Auto) 0.3 0.0-1.0 X 10^3 Eosinophils # (Auto) 0.0 0.0-0.3 10^3/uL Basophils # (Auto) 0.0 0.0-0.1 10^3/uL Neutrophils % (Manual) 86 % Lymphocytes % (Manual) 9 % Monocytes % (Manual) 5 % Eosinophils % (Manual) 0 % Basophils % (Manual) 0 % Blood Morphology Comment NORMAL Prothrombin Time 33.8 H 12.2-14.7 SEC INR Comment 3.2 H 0.8-1.4 Activated Partial Thromboplast Time 58 H 24-35 SEC Sodium Level 137 135-145 MMOL/L Potassium Level 4.4 3.6-5.0 MMOL/L Chloride Level 104 98-107 MMOL/L Carbon Dioxide Level 24 21-32 MMOL/L Anion Gap 9 5-14 MMOL/L Blood Urea Nitrogen 31 H 7-18 MG/DL Creatinine 2.07 H 0.60-1.30 MG/DL Estimat Glomerular Filtration Rate 31 BUN/Creatinine Ratio 15 Glucose Level 350 H 70-105 MG/DL Lactic Acid Level 2.45 *H 2.10 *H 0.50-2.00 MMOL/L Calcium Level 9.5 8.5-10.1 MG/DL Corrected Calcium 9.7 8.5-10.1 MG/DL Magnesium Level 1.8 1.8-2.4 MG/DL Total Bilirubin 0.4 0.1-1.0 MG/DL Aspartate Amino Transf (AST/SGOT) 17 5-34 U/L Alanine Aminotransferase (ALT/SGPT) 17 0-55 U/L Alkaline Phosphatase 44 40-136 U/L B-Type Natriuretic Peptide 550.9 H <100.0 PG/ML Total Protein 6.4 6.4-8.2 GM/DL Albumin 3.7 3.2-4.5 GM/DL My Orders Orders - HELLEN BAILON Cbc With Automated Diff (10/06/18 12:34) Comprehensive Metabolic Panel (10/06/18 12:34) Blood Culture (10/06/18 12:34) Sputum Culture (10/06/18 12:34) Protime With Inr (10/06/18 12:34) Partial Thromboplastin Time (10/06/18 12:34) Ed Iv/Invasive Line Start (10/06/18 12:34) Ed Iv/Invasive Line Start (10/06/18 12:34) Vital Signs Adult Sepsis Patie Q15M (10/06/18 12:34) O2 (10/06/18 12:34) Remove Rings In Anticipation O (10/06/18 12:34) Lactic Acid Analyzer (10/06/18 12:34) Ns Iv 1000 Ml (Sodium Chloride 0.9%) (10/06/18 12:34) Cefepime Injection (Maxipime Injection) (10/06/18 12:45) Albuterol/Ipra Inhalation Soln (Duoneb I (10/06/18 12:45) Svn Small Volume Nebulizer (10/06/18 12:34) BNP (10/06/18 12:34) Albuterol/Ipra Inhalation Soln (Duoneb I (10/06/18 12:32) Magnesium (10/06/18 12:39) Manual Differential (10/06/18 12:42) Chest Pa/Lat (2 View) (10/06/18 13:42) Medications Given in ED Vital Signs/I&O 10/06/18 10/06/18 10/06/18 10/06/18 12:45 12:45 12:45 12:45 Temp 96.3 96.3 96.3 Pulse 88 88 88 Resp 32 36 32 B/P (MAP) 129/74 129/74 (92) 129/74 (92) Pulse Ox 87 87 87 87 O2 Delivery Room Air Room Air Room Air Room Air 10/06/18 23:59 Intake Total 1010 ml Balance 1010 ml Capillary Refill : Progress Note : Progress Note DuoNeb did improve his breath sounds. The patient would desat down the low 80s and become visibly short of breath with increased work of breathing just walking to the bathroom. On 3 L he was staying in the mid to low 90s by nasal cannula. We selected cefepime for its broad coverage and avoid azithromycin which would have a greater effect on the INR which is already mildly supratherapeutic. We did decrease the dose your warfarin tonight from 7.5 to 5 mg. Diagnostic Imaging Diagonstic Imaging: Xray Plain Films/CT/US/NM/MRI: chest Comments NAME: ANGELIKA PARKINSON [facility] REC#: [id number] PT STATUS: REG ER : 1940 PHYSICIAN: EHLLEN BAILON MD ADMIT DATE: 10/06/18/ER Draft Date of Exam:10/06/18 CHEST PA/LAT (2 VIEW) INDICATION: Pneumonia and shortness of air. TIME OF EXAM: 01:58 p.m. COMPARISON: Correlation is made with prior chest from 02/23/2018. FINDINGS: The heart size is stable. Patient has developed bilateral pulmonary infiltrates, greatest in the right perihilar and right basilar region. No effusion is seen. There is no pneumothorax. IMPRESSION: Bilateral pulmonary infiltrates consistent with pneumonia. Dictated on workstation # [id number] Dict: 10/06/18 1426 Trans: 10/06/18 1435 [facility] [id number] Interpreted by: JESUS ROSA MD Electronically signed by: Reviewed: Reviewed by Me Departure Communication (Admissions) Time/Spoke to Admitting Phy: 16:16 Discussed the case with Dr. Petersen he agrees to admit the patient on cefepime to avoid azithromycin interaction with the already elevated INR. Impression Primary Impression: Pneumonia Qualified Codes: J18.9 - Pneumonia, unspecified organism Additional Impressions: Hypoxia Respiratory distress Disposition: ADMITTED INPATIENT Condition: Stable Admissions Decision to Admit Reason: Admit from ER (General) Decision to Admit/Date: Oct 06, 2018 Time/Decision to Admit Time: 16:15 Departure-Patient Inst. Referrals: AL PETERSEN MD (PCP/Family) Primary Care Physician HELLEN BIALON Oct 06, 2018 12:44
[2018-10-06 12:45] VITALS: BP 129/74
[2018-10-06] MEDS ORDERED: RT-ALBUTEROL/IPRATROPIUM 3 ML (DUONEB) VIAL INH ONE (12:45)
[2018-10-06] MEDS ORDERED: CEFEPIME INJECTION 1,000 MG in WATER (STERILE) FOR INJECTION 10 ML IV ONE (12:45)
--- OUTSIDE RECORDS SUMMARY | 2018-10-06 12:45 | XMS REPORT | Clinical Summary ---
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
--- OUTSIDE RECORDS SUMMARY | 2018-10-06 12:47 | XMS REPORT | Continuity of Care Document ---
Author Organization Unknown Address Unknown Allergies Active Description Code Type Severity Reaction Onset Reported/Identified Relationship to Patient Clinical Status Yes meperidine [id number] Drug Allergy Unknown N/A 08/23/2017 Medications There [...] DUNNE MD Ot 414.01 CORONARY ATHEROSCLEROSIS OF [place] CORON 12/15/2012 RADHA DUNNE MD Ot 459.81 [...] HUTCHINS DO, KAILYN Barros Ot 959.7 11/08/2014 HUTCHNIS DO, KAILYN Barros Ot E000.8 11/08/2014 HUTCHINS [...] M79.662 PAIN IN LEFT LOWER LEG 05/08/2016 LZIETH DPM, SURENDRA Q Ot M79.672 PAIN IN [...] STATUS 06/15/2016 YAN TELLEZ MD Ot Z79.84 HALF-WAY (CURRENT) USE OF ORAL HYPOGLYC 06/15/2016 YAN TELLEZ MD Ot Z79.899 OTHER MERCHANDISE PICKUP/RECEIVING ASSOCIATE (CURRENT) DRUG THERAPY 06/17/2016 YAN TELLEZ MD [...] STATUS 06/17/2016 YAN TELLEZ MD Ot Z79.84 MERCHANDISE PICKUP/RECEIVING ASSOCIATE (CURRENT) USE OF ORAL HYPOGLYC 06/17/2016 YAN TELLEZ MD Ot Z79.899 OTHER HALF-WAY (CURRENT) DRUG THERAPY 12/04/2016 YAN TELLEZ MD [...] STATUS 12/04/2016 YAN TELLEZ MD Ot Z79.84 HALF-WAY (CURRENT) USE OF ORAL HYPOGLYC 12/04/2016 GEOFF ABERNATHY, YAN Taylor Ot Z79.899 OTHER HALF-WAY (CURRENT) DRUG THERAPY 08/25/2017 AL PETERSEN MD, [...] UNSPECIFIED 08/25/2017 AL PETERSEN MD, Ot Z79.84 MERCHANDISE PICKUP/RECEIVING ASSOCIATE (CURRENT) USE OF ORAL HYPOGLYC 08/25/2017 AL PETERSEN MD, Ot Z86.718 PERSONAL HISTORY OF OTHER VENOUS THROMBO 08/25/2017 AL PETERSEN MD, Ot Z87.891 PERSONAL HISTORY OF NICOTINE DEPENDENCE 08/25/2017 AL PETERSEN MD, Ot C64.9 MALIGNANT [...] UNSPECIFIED 08/25/2017 AL PETERSEN MD, Ot Z79.01 HALF-WAY (CURRENT) USE OF ANTICOAGULANT 08/25/2017 AL PETERSEN MD Ot Z79.84 HALF-WAY (CURRENT) USE OF ORAL HYPOGLYC 08/25/2017 AL [...] - 08/23/17 15:25 Bacterial blood culture NG [facility] Blood lactic acid measurement (moles/volume) - 08/23/17 15:40 Blood lactic acid measurement (moles/volume) 1.21 mmol/L 0.50- 2.00 Bacterial blood culture - 08/23/17 15:40 Bacterial blood culture NG [facility] Capillary blood glucose measurement by glucometer (mass/volume) [...] measurement by glucometer (mass/volume) 169 mg/dL 70-110 Complete blood count (CBC) with automated white blood cell (WBC) differential - 10/02/18 22:45 Blood leukocytes automated count (number/volume) 8.8 10*3/uL 4.3-11.0 Blood erythrocytes automated count (number/volume) 4.71 10*6/uL 4.35-5.85 Venous blood hemoglobin measurement (mass/volume) 13.9 g/dL 13.3-17.7 Blood hematocrit (volume fraction) 42 % 40-54 Automated erythrocyte mean corpuscular volume 89 [foz_us] 80-99 Automated erythrocyte mean corpuscular hemoglobin (mass per erythrocyte) 30 pg 25-34 Automated erythrocyte mean corpuscular hemoglobin concentration measurement (mass/volume) 33 g/dL 32-36 Automated erythrocyte distribution width ratio 14.8 % 10.0- 14.5 Automated blood platelet count (count/volume) 214 10*3/uL 130-400 Automated blood platelet mean volume measurement 11.3 [foz_us] 7.4-10.4 Automated blood neutrophils/100 leukocytes 66 % 42-75 Automated blood lymphocytes/100 leukocytes 21 % 12-44 Blood monocytes/100 leukocytes 9 % 0-12 Automated blood eosinophils/100 leukocytes 4 % 0-10 Automated blood basophils/100 leukocytes 1 % 0-10 Blood neutrophils automated count (number/volume) 5.9 10*3 1.8-7.8 Blood lymphocytes automated count (number/volume) 1.9 10*3 1.0-4.0 Blood monocytes automated count (number/volume) 0.8 10*3 0.0- 1.0 Automated eosinophil count 0.3 10*3/uL 0.0-0.3 Automated blood basophil count (count/volume) 0.1 10*3/uL 0.0-0.1 PT panel in platelet poor plasma by coagulation assay - 10/02/18 22:45 Prothrombin time (PT) in platelet poor plasma by coagulation assay 33.2 s 12.2-14.7 INR in platelet poor plasma or blood by coagulation assay 3.1 0.8-1.4 Comprehensive metabolic panel - 10/02/18 22:45 Serum or plasma sodium measurement (moles/volume) 142 mmol/L 135-145 Serum or plasma potassium measurement (moles/volume) 4.1 mmol/L 3.6-5.0 Serum or plasma chloride measurement (moles/volume) 108 mmol/L 98-107 Carbon dioxide 22 mmol/L 21-32 Serum or plasma anion gap determination (moles/volume) 12 mmol/L 5-14 Serum or plasma urea nitrogen measurement (mass/volume) 29 mg/dL 7-18 Serum or plasma creatinine measurement (mass/volume) 1.94 mg/dL 0.60-1.30 Serum or plasma urea nitrogen/creatinine mass ratio 15 NRG Serum or plasma creatinine measurement with calculation of estimated glomerular filtration rate 34 NRG Serum or plasma glucose measurement (mass/volume) 177 mg/dL 70-105 Serum or plasma calcium measurement (mass/volume) 9.9 mg/dL 8.5-10.1 Serum or plasma total bilirubin measurement (mass/volume) 0.2 mg/dL 0.1-1.0 Serum or plasma alkaline phosphatase measurement (enzymatic activity/volume) 54 U/L 40-136 Serum or plasma aspartate aminotransferase measurement (enzymatic activity/volume) 22 U/L 5-34 Serum or plasma alanine aminotransferase measurement (enzymatic activity/volume) 20 U/L 0-55 Serum or plasma protein measurement (mass/volume) 7.2 g/dL 6.4-8.2 Serum or plasma albumin measurement (mass/volume) 4.0 g/dL 3.2-4.5 CALCIUM CORRECTED 9.9 mg/dL 8.5-10.1 Complete urinalysis with reflex to culture - 10/02/18 22:53 Urine color determination RED NRG Urine clarity determination VERY CLOUDY NRG Urine pH measurement by test strip 7 5-9 Specific gravity of urine by test strip 1.010 1.016-1.022 Urine protein assay by test strip, semi-quantitative 4+ NEGATIVE Urine glucose detection by automated test strip NEGATIVE NEGATIVE Erythrocytes detection in urine sediment by light microscopy 5+ NEGATIVE Urine ketones detection by automated test strip NEGATIVE NEGATIVE Urine nitrite detection by test strip NEGATIVE NEGATIVE Urine total bilirubin detection by test strip NEGATIVE NEGATIVE Urine urobilinogen measurement by automated test strip (mass/volume) NORMAL NORMAL Urine leukocyte esterase detection by dipstick 1+ NEGATIVE Automated urine sediment erythrocyte count by microscopy (number/high power field) TNTC NRG Automated urine sediment leukocyte count by microscopy (number/high power field) [HPF] NRG Bacteria detection in urine sediment by light microscopy NEGATIVE NRG Crystals detection in urine sediment by light microscopy NONE NRG Casts detection in urine sediment by light microscopy NONE NRG Mucus detection in urine sediment by light microscopy NEGATIVE NRG Complete urinalysis with reflex to culture YES NRG Bacterial urine culture - 10/02/18 22:53 Bacterial urine culture NG NRG Encounters ACCT No. Visit Date/Time Discharge Status Pt. Type Provider Facility Loc./Unit Complaint [id number] 10/02/2018 22:33:00 10/03/2018 00:30:00 DIS Emergency ADAMARIS ABERNATHY, HELLEN Barros [facility] ER BLOOD IN URINE [id number] 02/23/2018 09:43:00 02/23/2018 23:59:59 CLS Outpatient AL PETERSEN MD [facility] RAD RIB PAIN [id number] 08/23/2017 15:28:00 08/25/2017 14:13:00 DIS Inpatient AL PETERSEN MD [facility] 4TH PNUEMONIA LLL [id number] 06/15/2016 16:00:00 06/15/2016 17:34:00 DIS Emergency YAN TELLEZ MD [facility] ER LEFT LEG PAIN [id number] 05/08/2016 08:17:00 05/08/2016 23:59:59 CLS Outpatient MARSHA HUTCHINS [facility] RAD THYROMEGALY [id number] 03/03/2015 09:52:00 03/03/2015 23:59:59 CLS Outpatient LIZETH DPM, SURENDRA Q [facility] RAD PAIN TO LEFT FOOT,ANKLE,CALF AND GROIN WITH EDEMA [id number] 09/29/2014 16:23:00 09/29/2014 23:59:59 CLS Outpatient KAILYN HUTCHINS DO [facility] RAD TRAUMA [id number] 04/12/2014 12:51:00 04/12/2014 23:59:59 CLS Outpatient DEANNA VARELA MD [facility] CARD FABRICE,DVT,HTN,EDEMA [id number] 12/10/2013 16:34:00 12/10/2013 23:59:59 CLS Outpatient [id number] 12/10/2013 14:30:00 12/10/2013 23:59:59 CLS Outpatient LEORA ABERNATHY, ELY Hidalgo [facility] LABNPT (R) MEDIAL ANKLE WOUND [id number] 09/30/2013 17:05:00 09/30/2013 20:26:00 DIS Emergency RASHIDA CONNOLLY [facility] ER R THUMB LAC [id number] 12/13/2012 13:40:00 12/15/2012 12:00:00 DIS Inpatient RADHA DUNNE MD [facility] 4TH CHEST PAIN [id number] 10/15/2012 07:27:00 10/15/2012 10:40:00 DIS Outpatient ELY COREY MD [facility] SDC DYSPHAGIA [id number] 10/14/2012 08:11:00 10/14/2012 23:59:59 CLS Outpatient ELY COREY MD [facility] PREOP DYSPHAGIA [id number] 09/28/2012 12:30:00 09/28/2012 23:59:59 CLS Outpatient RADHA DUNNE MD [facility] CARD TACHYCARDIA [id number] 10/05/2018 10:28:00 ACT Outpatient HERNANDEZ DANIELSON MD [facility] RAD NEMATURIC [id number] 05/15/2011 02:50:00 Document Registration
[2018-10-06 12:51] LABS: BASOPHILS % (AUTO) 0 % (0-10); EOSINOPHILS % (AUTO) 0 % (0-10); HEMATOCRIT 38 % (40-54); HEMOGLOBIN 12.6 G/DL (13.3-17.7); LYMPHOCYTES % (AUTO) 8 % (12-44); MEAN CORPUSCULAR HEMOGLOBIN 29 PG (25-34); MEAN CORPUSCULAR HGB CONC 33 G/DL (32-36); MEAN CORPUSCULAR VOLUME 88 FL (80-99); MEAN PLATELET VOLUME 11.4 FL (7.4-10.4); MONOCYTES # (AUTO) 0.3 X 10^3 (0.0-1.0); MONOCYTES % (AUTO) 3 % (0-12); NEUTROPHILS # (AUTO) 10.8 X 10^3 (1.8-7.8); NEUTROPHILS % (AUTO) 90 % (42-75); PLATELET COUNT 198 10^3/uL (130-400); RED CELL DISTRIBUTION WIDTH 14.9 % (10.0-14.5)
[2018-10-06 13:01] LABS: INR 3.2 (0.8-1.4); PROTHROMBIN TIME PATIENT 33.8 SEC (12.2-14.7)
[2018-10-06] MEDS: NS IV 1000 ML 1,000 ML IV SCH ×4 (13:01→22:30)
[2018-10-06 13:12] LABS: ALBUMIN 3.7 GM/DL (3.2-4.5); BILIRUBIN,TOTAL 0.4 MG/DL (0.1-1.0); CALCIUM 9.5 MG/DL (8.5-10.1); CREATININE SERUM 2.07 MG/DL (0.60-1.30); MAGNESIUM 1.8 MG/DL (1.8-2.4); POTASSIUM 4.4 MMOL/L (3.6-5.0); TOTAL PROTEIN 6.4 GM/DL (6.4-8.2)
[2018-10-06 13:33] LABS: BASOPHILS % (MANUAL) 0 %; EOSINOPHILS % (MANUAL) 0 %; LYMPHOCYTES % (MANUAL) 9 %; MONOCYTES % (MANUAL) 5 %; NEUTROPHILS % (MANUAL) 86 %
[2018-10-06 13:36] LABS: RBC MORPH NORMAL
--- NOTE | 2018-10-06 14:35 | Diagnostic Imaging Report ---
INDICATION: Pneumonia and shortness of air. TIME OF EXAM: 01:58 p.m. COMPARISON: Correlation is made with prior chest from 02/23/2018. FINDINGS: The heart size is stable. Patient has developed bilateral pulmonary infiltrates, greatest in the right perihilar and right basilar region. No effusion is seen. There is no pneumothorax. IMPRESSION: Bilateral pulmonary infiltrates consistent with pneumonia. Dictated by: Dictated on workstation # [id number]
[2018-10-06 17:05] VITALS: BP 129/74
[2018-10-06] MEDS ORDERED: CATHETER FLUSH 10 ML SYR IV PRN (17:15)
[2018-10-06 17:19] VITALS: BP 158/78
[2018-10-06] MEDS ORDERED: RT-ALBUTEROL SULF 2.5 MG/3 ML PRE-MIX VIAL INH PRN (19:45)
[2018-10-06 20:52] VITALS: BP 142/75
[2018-10-06] MEDS: inSUlin ASPART (NovoLOG) 1 UNIT/0.01 ML (CHARGE PER UNIT) SC SCH (20:56)
[2018-10-07] VITALS (19 sets, daily range): BP systolic 126–179; BP diastolic 44–101
[2018-10-07] MEDS: NS IV 1000 ML 1,000 ML IV SCH ×4 (03:32→22:03)
[2018-10-07 05:45] LABS: BASOPHILS % (AUTO) 0 % (0-10); EOSINOPHILS % (AUTO) 0 % (0-10); HEMATOCRIT 41 % (40-54); HEMOGLOBIN 13.4 G/DL (13.3-17.7); LYMPHOCYTES # (AUTO) 1.5 X 10^3 (1.0-4.0); LYMPHOCYTES % (AUTO) 11 % (12-44); MEAN CORPUSCULAR HEMOGLOBIN 29 PG (25-34); MEAN CORPUSCULAR HGB CONC 33 G/DL (32-36); MEAN CORPUSCULAR VOLUME 89 FL (80-99); MEAN PLATELET VOLUME 11.5 FL (7.4-10.4); MONOCYTES % (AUTO) 7 % (0-12); NEUTROPHILS % (AUTO) 81 % (42-75); PLATELET COUNT 194 10^3/uL (130-400); RED CELL DISTRIBUTION WIDTH 14.8 % (10.0-14.5); WHITE BLOOD COUNT 13.5 10^3/uL (4.3-11.0)
[2018-10-07] MEDS: inSUlin ASPART (NovoLOG) 1 UNIT/0.01 ML (CHARGE PER UNIT) SC SCH ×4 (05:55→21:48)
[2018-10-07 05:56] LABS: INR 2.8 (0.8-1.4); PROTHROMBIN TIME PATIENT 30.6 SEC (12.2-14.7)
[2018-10-07 06:04] LABS: ALBUMIN 3.6 GM/DL (3.2-4.5); BILIRUBIN,TOTAL 0.3 MG/DL (0.1-1.0); CALCIUM 9.4 MG/DL (8.5-10.1); CREATININE SERUM 1.7 MG/DL (0.60-1.30); TOTAL PROTEIN 6.5 GM/DL (6.4-8.2)
[2018-10-07] MEDS: RT-ALBUTEROL SULF 2.5 MG/3 ML PRE-MIX VIAL INH PRN ×2 (07:21→09:30)
--- NOTE | 2018-10-07 08:13 | Pulmonary Consultation ---
History of Present Illness History of Present Illness Date of Consultation 10/07/18 08:08 Time Seen by Provider: 08:08 Date of Admission History of Present Illness 78yo with hx of tobacco use, and DVTs (on Coumadin therapy) presented to ED secondary to worsening SOB after failing out patient treatment. Pt was placed on Azithromycin and steroids as yesterday however his SOB continued to worsen. Denies fever, or productive cough. He is currently requiring Vapotherm high flow oxygen. Denies hx of COPD, asthma, or CHF. Allergies and Home Medications Allergies Coded Allergies: meperidine (Verified Allergy, Unknown, 08/23/17) Home Medications Amlodipine Besylate 5 Mg Tablet, 5 MG PO DAILY, (Reported) Atorvastatin Calcium 40 Mg Tablet, 40 MG PO HS, (Reported) Cephalexin 500 Mg Tablet, 500 MG PO BID Prescribed by: HELLEN BAILON on 10/03/18 0015 Cholecalciferol (Vitamin D3) 2,000 Unit Capsule, 2,000 UNIT PO BID, (Reported) Cyclobenzaprine HCl 10 Mg Tablet, 10 MG PO HS, (Reported) Fenofibrate Nanocrystallized 145 Mg Tablet, 72.5 MG PO DAILY, (Reported) TAKES 1/2 (145MG) TABLET Glipizide 10 Mg Tablet, 10 MG PO BID, (Reported) Guaifenesin/Codeine Phosphate 120 Ml Liquid, 10 ML PO Q6H PRN for COUGH Prescribed by: AL PETERSEN on 08/25/17 1308 Levofloxacin 500 Mg Tablet, 500 MG PO DAILY@11 Prescribed by: AL PETERSEN on 08/25/17 1303 Magnesium Oxide 400 Mg Tablet, 400 MG PO DAILY, (Reported) Metformin HCl 1,000 Mg Tablet, 1,000 MG PO DAILY, (Reported) Metoprolol Tartrate 100 Mg Tablet, 100 MG PO BID, (Reported) Nystatin 60 Gm Powder, TOP BID PRN for RASH, (Reported) Ropinirole HCl 0.5 Mg Tablet, 0.5 MG PO HS, (Reported) Warfarin Sodium 5 Mg Tablet, 7.5 MG PO HS, (Reported) TAKES 1 & 1/2 (5MG) TABLET Past Cbpwpai-Whnxgk-Wxutwk Hx Patient Social History Alcohol Use: Denies Use Recreational Drug Use: No Smoking Status: Former Smoker Type Used: Cigarettes Former Smoker, Quit: Feb 06, 1952 2nd Hand Smoke Exposure: No Recent Foreign Travel: No Contact w/Someone Who Travel: No Recent Infectious Disease Expo: No Recent Hopitalizations: No Physical Abuse: No Sexual Abuse: No Mistreated: No Fear: No Immunizations Up To Date Tetanus Booster (TDap): Less than 5yrs Date of Pneumonia Vaccine: Oct 15, 2010 Date of Influenza Vaccine: Dec 22, 2010 Seasonal Allergies Seasonal Allergies: No Past Medical History Surgeries: Yes (REMOVAL ADHESIONS, "removal of 2 feet of intestine") Abdominal, Vascular Surgery Respiratory: Yes Sleep Apnea, COPD Cardiac: Yes Hypertension Neurological: No Reproductive Disorders: No Genitourinary: No Benign Prostatic Hyperpl Gastrointestinal: Yes (DYSPHAGIA) Gastroesophageal Reflux, Obstructive Bowel, Diverticulosis, Hiatal Hernia Musculoskeletal: Yes (CHRONIC GENERALIZED PAIN) Arthritis Endocrine: Yes Diabetes, Non-Insulin dep HEENT: No Cancer: Yes Kidney What Type of Treatment Did You: Surgical Intervention Psychosocial: No Integumentary: No Blood Disorders: Yes (FACTOR 5 DEFICIENCY, MULTIPLE DVT'S) Review of Systems Time Seen by Provider: 08:29 Sepsis Event Evaluation Height, Weight, BMI Height: 10.00" Weight: 262lbs. 3.2oz. 118.409513uw; 37.6 BMI Method:Estimated Exam Exam Vital Signs Date Time Temp Pulse Resp B/P (MAP) Pulse Ox O2 Delivery O2 Flow Rate FiO2 10/07/18 06:29 94 NIV Bilevel 4 10/07/18 03:21 97.7 77 20 134/73 (93) 94 NIV CPAP 4.00 10/07/18 00:14 97.9 83 20 126/66 (86) 89 OxyMask 4.00 10/06/18 20:52 97.8 86 20 142/75 (97) 92 Nasal Cannula 3.00 10/06/18 20:19 92 Nasal Cannula 3.00 10/06/18 19:20 74 92 10/06/18 17:19 97.0 85 22 158/78 (104) 93 Nasal Cannula 3.00 10/06/18 17:05 96.3 94 19 129/74 94 Nasal Cannula 3.00 3.00 10/06/18 17:00 92 Nasal Cannula 3.00 10/06/18 16:48 96.3 94 19 129/74 (92) 94 Nasal Cannula 3.00 10/06/18 12:45 96.3 88 32 129/74 (92) 87 Room Air 10/06/18 12:45 87 Room Air 10/06/18 12:45 96.3 88 36 129/74 (92) 87 Room Air 10/06/18 12:45 96.3 88 32 129/74 87 Room Air I & O 10/07/18 07:00 Intake Total 3720 ml Balance 3720 ml Height & Weight Height: 5'10.00" Weight: 262lbs. 3.2oz. 118.663492wu; 37.6 BMI Method:Estimated General Appearance: Moderate Distress, Obese HEENT: PERRL/EOMI Neck: Full Range of Motion, Non Tender, Supple Respiratory: Accessory Muscle Use, Crackles, Decreased Breath Sounds Capillary Refill: Less Than 3 Seconds Gastrointestinal: normal bowel sounds, non tender, soft Neurologic/Psychiatric: Alert, Oriented x3 Skin: Normal Color, Warm/Dry Lymphatic: No Adenopathy Results Lab Laboratory Tests 10/06/18 12:42 10/07/18 05:13 Assessment/Plan Assessment/Plan Acute respiratory failure -Currenty requiring high flow oxygen via Vapotherm -Check ABG -BiPAP PRN -Transfer pt to ICU Bilateral PNA -Pt was given Cefepime x 1 dose yesterday -Change to Rocephin and azithromycin -Matute cultures -Check MRSA swab, Check urine strep and legionella ag Acute renal failure -IVF Metabolic lactic acidosis -Monitor Morbid obesity with OHS ESPERANZA -Pt has his home CPAP machine -Use our BIPAP for now until pt is improved clinically Hx of tobacco use -out pt testing Hx of DVT -On coumadin therapy -Daily PT/INR SOULEYMANE ABBOTT DO Oct 07, 2018 08:13
[2018-10-07 08:15] LABS: ABG BASE EXCESS -3.2 MMOL/L (-2.5-2.5); ABG OXYGEN SATURATION 95 % (94-100); ABG PCO2 42 MMHG (35-45); ABG PO2 76 MMHG (79-93)
[2018-10-07 08:18] LABS: ABG PH 7.33 (7.37-7.43); ALLENS TEST YES-POS
[2018-10-07 08:19] LABS: INSPIRED O2 30LPM 80%; PATIENT TEMP 99.1; VENTILATOR NO
[2018-10-07] MEDS ORDERED: AZITHROMYCIN 250 MG TAB (ZITHROMAX) PO NR (08:21)
[2018-10-07] MEDS ORDERED: cefTRIAXone 1,000 MG/SWFI 10 ML IV PUSH IV SCH ×2 (08:30)
--- NOTE | 2018-10-07 08:53 | NUR ---
Patient transferred to ICU-[address] Collier due to shortness of air and need for higher level of medical care. Report given to BAHMAN Conde.
--- NOTE | 2018-10-07 09:58 | History & Physical ---
History of Present Illness History of Present Illness Reason for visit/HPI 78-year-old male admitted on October 06, 2018 from the ER for acute respiratory failure due to bilateral pneumonia. Patient was seen at [facility] on October 05 and was started on azithromycin and prednisone and a dose of Lasix. He did not improve and felt like he might be getting worse so he went to the ER. Patient found to have bilateral pneumonia he was placed on 3-4 L of oxygen nasal cannula. Overnight events patient did have increased trouble breathing and was subsequently placed on Vapotherm and transferred to the ICU for acute worsening respiratory failure. Of note patient did get 1 dose of cefepime yesterday this has since been changed to Rocephin and azithromycin. White blood cells are still elevated. Lactic acid elevated as well. Creatinine has improved from 2 to 1.7. Patient is on warfarin for history of DVTs. He does have factor V leiden. Other pertinent information patient reports his difficulty breathing is been going on for more than 2 weeks but has worsened over the last couple weeks with exertion. His home oxygen saturation monitor shows he is in the 80s with ambulation. He also has obstructive sleep apnea which he uses a CPAP at night but lately has not been very beneficial due to his difficulty breathing. Denies any fevers but endorses chills. Patient also has diabetes which is not under good control. He does eat and snack all day and overnight. We will check his hga1c while inpatient. Date of Admission Oct 06, 2018 at 16:15 Date Seen by a Provider: Oct 07, 2018 Time Seen by a Provider: 09:58 I consulted on this patient on 10/07/18 09:52 Attending Physician Nilson Petersen MD Admitting Physician Nilson Petersen MD Consult Juancarlos Ko Allergies and Home Medications Allergies Coded Allergies: meperidine (Verified Allergy, Unknown, 08/23/17) Home Medications Amlodipine Besylate 5 Mg Tablet, 5 MG PO DAILY, (Reported) Atorvastatin Calcium 40 Mg Tablet, 40 MG PO HS, (Reported) Azithromycin 250 Mg Tablet, PO UD, (Reported) 5 DAY SUPPLY FILLED 10-05-18 TAKE 2 TABS DAY 1 THEN 1 TAB DAILY DAYS 2-5 Cephalexin 500 Mg Tablet, 500 MG PO BID Prescribed by: HELLEN BAILON on 10/03/18 0015 Cholecalciferol (Vitamin D3) 2,000 Unit Capsule, 2,000 UNIT PO BID, (Reported) Cyclobenzaprine HCl 10 Mg Tablet, 10 MG PO HS, (Reported) Fenofibrate Nanocrystallized 145 Mg Tablet, 72.5 MG PO DAILY, (Reported) TAKES 1/2 (145MG) TABLET Furosemide 20 Mg Tablet, 20 MG PO DAILY PRN for SHORTNESS OF BREATH, (Reported) Glipizide 10 Mg Tablet, 10 MG PO BID, (Reported) Magnesium Oxide 400 Mg Tablet, 400 MG PO DAILY, (Reported) Metformin HCl 1,000 Mg Tablet, 1,000 MG PO DAILY, (Reported) Metoprolol Tartrate 100 Mg Tablet, 100 MG PO BID, (Reported) Nystatin 60 Gm Powder, TOP BID PRN for RASH, (Reported) Potassium Chloride 20 Meq Tab.er.prt, 20 MEQ PO DAILY PRN for WHEN TAKING FUROSEMIDE, (Reported) Prednisone 20 Mg Tab, 40 MG PO DAILY, (Reported) 5 DAY SUPPLY FILLED 10-05-18 Ropinirole HCl 0.5 Mg Tablet, 0.5 MG PO HS, (Reported) Warfarin Sodium 5 Mg Tablet, 7.5 MG PO HS, (Reported) TAKES 1 & 1/2 (5MG) TABLET Warfarin Sodium 2.5 Mg Tablet, 2.5 MG PO 1800, (Reported) Patient Home Medication List Home Medication List Reviewed: Yes Past Lbdxooz-Egocwj-Qcoyau Hx Patient Social History Marrital Status: Employed/Student: employed ([employer]) Alcohol Use: Denies Use Recreational Drug Use: No Smoking Status: Former Smoker Former Smoker, Quit: Feb 06, 1952 Type Used: Cigarettes 2nd Hand Smoke Exposure: No Recent Foreign Travel: No Contact w/other who traveled: No Recent Hopitalizations: No Recent Infectious Disease Expo: No Immunizations Up To Date Tetanus Booster (TDap): Less than 5yrs Date of Pneumonia Vaccine: Oct 15, 2010 Date of Influenza Vaccine: Dec 22, 2010 Seasonal Allergies Seasonal Allergies: No Surgeries Yes (REMOVAL ADHESIONS, "removal of 2 feet of intestine") Abdominal, Vascular Surgery Respiratory Yes Cardiovascular Yes Hypertension Neurological No Reproductive System Hx Reproductive Disorders: No Genitourinary No Benign Prostatic Hyperpl Gastrointestinal Yes (DYSPHAGIA) Gastroesophageal Reflux, Obstructive Bowel, Diverticulosis, Hiatal Hernia Musculoskeletal Yes (CHRONIC GENERALIZED PAIN) Arthritis Endocrine History of Endocrine Disorders: Yes Endocrine Disorders: Diabetes, Non-Insulin dep HEENT History of HEENT Disorders: No Cancer Yes Kidney Type of Treatment: Surgical Intervention Psychosocial History of Psychiatric Problem: No Integumentary History of Skin or Integumenta: No Blood Transfusions History of Blood Disorders: Yes (FACTOR 5 DEFICIENCY, MULTIPLE DVT'S) Review of Systems Review of Systems General: Chills; No Night Sweats HEENT: No Head Aches, No Visual Changes Pulmonary: Dyspnea, Cough Cardiovascular: No: Chest Pain, Palpitations Gastrointestinal: No: Nausea, Vomiting, Abdominal Pain Genitourinary: No Dysuria Neurological: Weakness; No: Change in speech, Confusion Physical Exam Vital Signs Vital Signs - First Documented 10/06/18 10/07/18 16:48 06:29 O2 Flow Rate 3.00 FiO2 4 Capillary Refill : Less Than 3 Seconds Height, Weight, BMI Height: 5'10.00" Weight: 262lbs. 3.2oz. 118.112630qb; 37.6 BMI Method:Estimated General Appearance: Moderate Distress (respiratory) HEENT: PERRL/EOMI Neck: Full Range of Motion, Normal Inspection, Non Tender, Supple Respiratory: Chest Non Tender, Crackles, Decreased Breath Sounds, Rhonci, Wheezing Cardiovascular: Regular Rate, Rhythm Gastrointestinal: Non Tender, Soft Rectal: Deferred Extremity: Normal Capillary Refill, Normal Range of Motion, Non Tender, No Calf Tenderness Neurologic/Psychiatric: Alert, Oriented x3, No Motor/Sensory Deficits, Normal Mood/Affect Skin: Warm/Dry Assessment/Plan Assessment/Plan Admission Dx acute hypoxic respiratory failure due to pneumonia Admission Status: Inpatient Order (span 2 midnights) Reason for Inpatient Admission: Due to patient's multiple comorbidities and requirement of supplemental oxygen and now vapotherm he will need more than 2 midnights to improve his respiratory status enough to return home safely. He is at increased risk of bleeding with his warfarin and now azithromycin added on; along with being acutely ill. Assessment and Plan 10/06/18- admitted 10/07/18- transferred to ICU for worsening respiratory status -panculture pending- -continue rocephin, azithromycin -RT consulted -Dr. Collier consulted on Vapotherm Creatinine improved. -urinary catheter placed due to patient's respiratory status- clots noted with hematuria- Dr. Ojeda consulted - (pt was suppose to have an outpatient visit with Dr. Ojeda today- with possible cystoscopy) Problems: (1) Acute respiratory failure with hypoxia (2) Acute on chronic kidney failure Qualifiers: Assessment & Plan: avoid nephrotoxic agents, no NSAIDs. (3) Diabetes mellitus with diabetic nephropathy Qualifiers: Qualified Codes: E11.21 - Type 2 diabetes mellitus with diabetic nephropathy; Z79.4 - intermediate (current) use of insulin Assessment & Plan: Hga1c continue insulin SSI hold metformin (acute kidney failure) (4) Factor 5 Leiden mutation, heterozygous (5) History of DVT (deep vein thrombosis) (6) Obesity (BMI 30-39.9) (7) Obesity hypoventilation syndrome (8) ESPERANZA (obstructive sleep apnea) (9) Pneumonia Qualifiers: Qualified Codes: J18.9 - Pneumonia, unspecified organism (10) Lactic acidosis (11) Hematuria Qualifiers: Qualified Codes: R31.0 - Gross hematuria Assessment & Plan: Dr. Ojeda consulted Clinical Quality Measures DVT/VTE Risk/Contraindication: Risk Factor Score Per Nursin RFS Level Per Nursing on Admit: 4+=Very High NILSON PETERSEN MD Oct 07, 2018 09:58
[2018-10-07] MEDS ORDERED: RT-ALBUTEROL/IPRATROPIUM 3 ML (DUONEB) VIAL INH PRN (10:00)
[2018-10-07] MEDS: cefTRIAXone 1,000 MG/SWFI 10 ML IV PUSH IV SCH ×2 (10:18)
[2018-10-07 10:27] LABS: MAGNESIUM 1.7 MG/DL (1.8-2.4); PHOSPHORUS 3.4 MG/DL (2.3-4.7)
[2018-10-07] MEDS ORDERED: AZIT250T12 PO (10:27)
[2018-10-07] MEDS ORDERED: WARF2.5T82 PO (10:27)
[2018-10-07] MEDS ORDERED: PRD20T PO (10:27)
[2018-10-07] MEDS ORDERED: POTA20TA15 PO (10:27)
[2018-10-07] MEDS ORDERED: FURO20TA4 PO (10:27)
[2018-10-07] MEDS ORDERED: CEPH500C PO (10:34)
[2018-10-07] MEDS ORDERED: CHOL5000 PO (10:36)
--- NOTE | 2018-10-07 10:38 | NUR ---
SPOKE WITH THE PATIENT AND HIS GRANDDAUGHTER ABOUT MEDICATIONS. THEY HAD A LIST AND I COMPARED WITH THE EXT MED HX. HE STATES HE IS NOW TAKING VITAMIN D 5,000 UNITS DAILY OTC. HE ALSO TAKES MAG OX DAILY OTC. HIS FLEXERIL WAS FILLED #90 FOR 30 DAYS 08-28-18 HOWEVER HIS LIST STATES 1 HS. HE STATES UPON ADMISSION HE WAS TAKING BOTH ANTIBIOTICS AND THE PREDNISONE THAT WERE RECENTLY FILLED.
--- NOTE | 2018-10-07 11:44 | NUR ---
Pt was raised Rastafari and currently has not guilherme community. States he tries to live by the principle of "doing until others as you would have them do to you." He engaged in life review about his marriage and employments over the years. Pt shared that his family is his hilda and support, that he has lived a long and full life and is unafraid of . He engaged at length and openly about his personal thoughts, feelings and life experiences. 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 Addendum: 10/07/18 at 1149 by ЕЛЕНА DIMAS PAST Pt was raised Rastafari and currently has no guilherme community. States he tries to live by the principle of "doing unto others as you would have them do unto you.
--- NOTE | 2018-10-07 12:33 | CONSULTATION REPORT ---
DATE OF SERVICE: 10/07/2018 ATTENDING PHYSICIAN: Dr. Nilson Solano. SUMMARY: The patient is known to me, who came to my office on Friday, the day before his admission from the ER, complaining of gross hematuria with some clots. He had no other complaints at that time. We told him to hold his Coumadin, ordered a CT scan on him and scheduled him for a flexible cystoscopy at the office today. However, he presented to the emergency room short of breath and found to have bilateral lung infiltrates suggestive of pneumonia and was subsequently put on the floor and then moved to the ICU because of his shortness of breath. His CAT scan that we had ordered and done yesterday showed a bladder mass that is causing some obstruction to the right ureter. The patient had previously a left nephrectomy for cancer. His creatinine is under 2. His CBC and INR was reviewed yesterday and today. He has some gross hematuria and clots today, catheter was inserted by the nurse with recovery of some gross hematuria and clots. He has been draining well. The urine is tinged. IMPRESSION: Complicated case with complicated high risk patient with history of DVT x5, one single kidney, medical problems and anticoagulation with bladder mass, gross hematuria, obstruction to the right ureter, absent left kidney. RECOMMENDATION: 1. We will take one day at a time. At this point, we will keep him off the Coumadin and Dr. Solano will start him on Lovenox because of more clots and the nurse will check any other blood thinners that need to be held. 2. Daily basic metabolic panel, CBC, PT and INR. 3. Flexible cystoscopy at bedside tomorrow, local. 4. As long as the kidney function remained stable and do not deteriorate, we can go ahead and continue treating the pneumonia. Later on once he recovers, we will consider treatment of whatever we find tomorrow on flexible cystoscopy. If the patient goes sour; he will have to be transferred preferably to where Dr. Sesay did his nephrectomy, he is familiar with him and can take it from there with or without nephrostomy tube placement and manage the bladder accordingly. The plan was fully explained to the patient and later on to his family. Job ID: [id number] DocumentID: [id number] Dictated Date: 10/07/2018 11:23:35 Profiling Machine Setup Operator Date: 10/07/2018 12:32:38 Dictated By: HERNANDEZ DANIELSON MD
[2018-10-07] MEDS: RT-ALBUTEROL/IPRATROPIUM 3 ML (DUONEB) VIAL INH SCH ×3 (14:18→22:00)
--- NOTE | 2018-10-07 15:37 | NUR ---
RT TIMELINE NOTE: 725 RT called to Room for low Spo2. RT with pt in ICU at this time. 07 RT to room spo2 88% on 4lpm nc, labored breathing noted witth abd muscle use and purse lip breathing. Tight exp wheezes noted, treatment administered, Spo2 remains 88% after tx, improved air movement in lungs post treatment, O2 increased to 6lpm nc, Pt spo2 then drops to 85% and breathing more labored. Placed pt on Vapotherm 15lpm and 40%. Spo2 up to 86% flow titrated for Spo2 of 90% Settings 30lpm and 80% Fio2. [address] Solano and updated on pt status and that RT tx will be changed to q4 and q2h prn and that pt is now requiring Vapotherm, consult received for Dr Collier. Dr Collier on floor at this time and spoke on phone with Dr Solano. 0800: Rounded on pt with Dr Collier and updated him on recent events and changes made by this RT with pt. Orders for Bipap QHS and prn and for ABG. 0809: ABG drawn x 2 attempts and sent specimen to lab. 0832 & 0836: RN attempted to call this RT at this time and This RT was unavailable d/t being in nursery with post . 0856: This RT notifed by RT Piyush that she assisted with transfer of pt to ICU 1 and pt was stable when she left. 0930: This RT in room to assess pt, pt noted to have increased WOB and RR 32, Spo2 92% HR 100. Placed pt on Bipap at this time 10 R14 FIO2 50% and treatment administered, see intervention charting. 1530: No s/s of distress noted, pt breathing continues to be labored but has improved since this A.M.
[2018-10-07] MEDS ORDERED: meTOprolol TARTRATE 50 MG (LOPRESSOR) TAB ONE (17:29)
[2018-10-07] MEDS: meTOprolol TARTRATE 50 MG (LOPRESSOR) TAB PO SCH (17:36)
[2018-10-07] MEDS ORDERED: warFARin 7.5 MG (COUMADIN) TAB PO SCH (18:00)
[2018-10-07] MEDS: ENOXAPARIN 40 MG/0.4 ML (LOVENOX) SYR SQ SCH (21:49)
--- NOTE | 2018-10-07 23:15 | NUR ---
Called EICU d/t patient's SBP in 160-170's. New orders received at this time.
[2018-10-08] VITALS (31 sets, daily range): BP systolic 91–172; BP diastolic 48–104
[2018-10-08] MEDS ORDERED: amLODIPine 10 MG (NORVASC) TAB PO ONE (00:45)
[2018-10-08] MEDS ORDERED: meTOprolol 5 MG/5 ML (LOPRESSOR) VIAL IV ONE (01:00)
[2018-10-08] MEDS ORDERED: hydrALAZINE (APESOLINE) 20 MG/ML VIAL IV ONE (01:00)
[2018-10-08] MEDS: RT-ALBUTEROL/IPRATROPIUM 3 ML (DUONEB) VIAL INH SCH ×6 (02:08→22:15)
[2018-10-08 03:55] LABS: ABG BASE EXCESS -1.4 MMOL/L (-2.5-2.5); ABG OXYGEN SATURATION 91 % (94-100); ABG PCO2 41 MMHG (35-45); ABG PH 7.38 (7.37-7.43); ABG PO2 65 MMHG (79-93)
[2018-10-08 03:57] LABS: ALLENS TEST POSITIVE; INSPIRED O2 55% BIPAP; PATIENT TEMP 100.6; VENTILATOR NO
[2018-10-08 04:07] LABS: BASOPHILS % (AUTO) 0 % (0-10); EOSINOPHILS % (AUTO) 0 % (0-10); HEMATOCRIT 42 % (40-54); HEMOGLOBIN 13.5 G/DL (13.3-17.7); LYMPHOCYTES # (AUTO) 1.1 X 10^3 (1.0-4.0); LYMPHOCYTES % (AUTO) 7 % (12-44); MEAN CORPUSCULAR HEMOGLOBIN 29 PG (25-34); MEAN CORPUSCULAR HGB CONC 33 G/DL (32-36); MEAN CORPUSCULAR VOLUME 90 FL (80-99); MEAN PLATELET VOLUME 11.3 FL (7.4-10.4); MONOCYTES # (AUTO) 1.4 X 10^3 (0.0-1.0); MONOCYTES % (AUTO) 9 % (0-12); NEUTROPHILS # (AUTO) 13.2 X 10^3 (1.8-7.8); NEUTROPHILS % (AUTO) 84 % (42-75); PLATELET COUNT 241 10^3/uL (130-400); RED CELL DISTRIBUTION WIDTH 15.5 % (10.0-14.5); WHITE BLOOD COUNT 15.7 10^3/uL (4.3-11.0)
[2018-10-08 04:27] LABS: ALBUMIN 3.4 GM/DL (3.2-4.5); CALCIUM 9.7 MG/DL (8.5-10.1); CREATININE SERUM 1.56 MG/DL (0.60-1.30); MAGNESIUM 1.8 MG/DL (1.8-2.4); PHOSPHORUS 3.7 MG/DL (2.3-4.7); POTASSIUM 3.8 MMOL/L (3.6-5.0)
[2018-10-08 05:07] LABS: INR 2.3 (0.8-1.4); PROTHROMBIN TIME PATIENT 26.3 SEC (12.2-14.7)
--- NOTE | 2018-10-08 05:32 | Pulmonary Progress Note ---
Subjective Time Seen by a Provider: 05:35 Subjective/Events-last exam Pt is currently on BiPAP. Sepsis Event Evaluation Height, Weight, BMI Height: 5'10.00" Weight: 262lbs. 3.2oz. 118.361925mc; 37.6 BMI Method:Estimated Focused Exam Lactate Level 10/06/18 14:44: Lactic Acid Level 2.10*H 10/06/18 18:51: Lactic Acid Level 1.69 10/07/18 10:05: Lactic Acid Level 1.11 Exam Exam Vital Signs Date Time Temp Pulse Resp B/P (MAP) Pulse Ox O2 Delivery O2 Flow Rate FiO2 10/08/18 05:00 107 27 172/91 (118) 95 NIV Bilevel 55.00 10/08/18 04:00 104 30 167/84 (111) 94 NIV Bilevel 55.00 10/08/18 03:59 99.7 10/08/18 03:36 114 29 95 55.00 10/08/18 03:00 107 23 159/80 (106) 92 NIV Bilevel 55.00 10/08/18 02:08 102 34 94 60.00 10/08/18 02:00 101 29 171/88 (115) 94 NIV Bilevel 60.00 10/08/18 01:00 103 26 161/87 (111) 95 NIV Bilevel 60.00 10/08/18 01:00 103 10/08/18 00:00 98 25 163/92 (115) 95 NIV Bilevel 60.00 10/08/18 00:00 98.4 10/07/18 23:00 108 28 177/94 (121) 82 NIV Bilevel 60.00 10/07/18 22:00 104 18 179/90 (119) 87 Vapotherm 50.00 30.00 10/07/18 22:00 104 31 95 60.00 10/07/18 21:00 94 31 174/101 (125) 95 Vapotherm 50.00 30.00 10/07/18 20:00 NIV Bilevel 60.00 10/07/18 20:00 96 30 166/87 (113) 96 Vapotherm 50.00 30.00 10/07/18 19:52 98.2 10/07/18 19:14 98 30 95 60.00 10/07/18 19:00 98 26 134/44 (74) 92 Vapotherm 50.00 30.00 10/07/18 19:00 97 10/07/18 18:00 109 14 160/82 (108) 91 Vapotherm 50.00 30.00 10/07/18 17:00 109 28 171/88 (115) 92 Vapotherm 50.00 30.00 10/07/18 16:00 87 21 162/90 (114) 95 NIV Bilevel 50.00 10/07/18 15:30 99.4 10/07/18 15:00 106 33 162/85 (110) 96 NIV Bilevel 50.00 10/07/18 14:00 94 24 167/93 (117) 97 NIV Bilevel 50.00 10/07/18 13:00 93 21 164/91 (115) 98 NIV Bilevel 50.00 10/07/18 12:52 98 10/07/18 12:00 96 31 153/96 (115) 96 NIV Bilevel 50.00 10/07/18 11:25 97.8 10/07/18 11:00 109 37 171/99 (123) 98 NIV Bilevel 50.00 10/07/18 10:00 103 37 161/76 (104) 94 NIV Bilevel 50.00 10/07/18 09:37 NIV Bilevel 50.00 10/07/18 09:30 96 23 90 50.00 10/07/18 09:06 93 23 172/85 (114) 96 Vapotherm 80.00 30.00 10/07/18 09:03 100 10/07/18 08:00 92 Nasal Cannula 3.00 10/07/18 07:26 116 84 36 10/07/18 07:26 84 Nasal Cannula 4.00 10/07/18 07:18 99.1 116 24 147/97 (114) 94 Vapotherm 80.00 30.00 10/07/18 06:29 94 NIV Bilevel 4 I & O 10/08/18 07:00 Intake Total 2400 ml Output Total 4950 ml Balance -2550 ml Height & Weight Height: 5'10.00" Weight: 262lbs. 3.2oz. 118.406102ss; 37.6 BMI Method:Estimated General Appearance: Moderate Distress (respiratory) HEENT: PERRL/EOMI Neck: Full Range of Motion, Normal Inspection, Non Tender, Supple Respiratory: Chest Non Tender, Crackles, Decreased Breath Sounds, Rhonci, Wheezing Cardiovascular: Regular Rate, Rhythm Capillary Refill: Less Than 3 Seconds Gastrointestinal: normal bowel sounds, non tender, soft Extremity: Normal Capillary Refill, Normal Range of Motion, Non Tender, No Calf Tenderness Neurologic/Psychiatric: Alert, Oriented x3, No Motor/Sensory Deficits, Normal Mood/Affect Skin: Warm/Dry Lymphatic: No Adenopathy Results Lab Laboratory Tests 10/06/18 12:42 10/07/18 05:13 10/08/18 03:20 Assessment/Plan Assessment/Plan Acute respiratory failure -Vapotherm/BiPAP PRN Pulmonary edema secondary to IVF and renal failure --Will give 40mg of Lasix x 1 secondary to pulmonary edema Bilateral PNA -Rocephin and azithromycin 10/07 -Matute cultures pending Hematuria with hx of left nephrectomy secondary to cancer 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 Currently pt is a full code. SOULEYMANE ABBOTT DO Oct 08, 2018 05:32
[2018-10-08] MEDS ORDERED: FUROSEMIDE 40 MG/4 ML INJ (LASIX) ONE (05:51)
[2018-10-08] MEDS ORDERED: FUROSEMIDE 40 MG/4 ML INJ (LASIX) IVP ONE (06:00)
[2018-10-08] MEDS: POTASSIUM CL 10MEQ/50ML IVPB 50 ML IV SCH ×2 (06:15→07:25)
[2018-10-08] MEDS: inSUlin ASPART (NovoLOG) 1 UNIT/0.01 ML (CHARGE PER UNIT) SC SCH ×2 (06:17→11:00)
--- NOTE | 2018-10-08 06:36 | Diagnostic Imaging Report ---
EXAM: CHEST 1 VIEW, AP/PA ONLY INDICATION: Respiratory distress. COMPARISON: Chest radiographs 10/06/2018. FINDINGS: Since prior exam, there has been marked progression of dense airspace consolidation throughout both lungs. This is greatest in the right upper lobe. Small bilateral pleural effusions. No pneumothorax. Heart sizes and pulmonary vascularity are obscured. Calcified aorta. IMPRESSION: Marked interval progression of airspace consolidation throughout both lungs, greatest in the right upper lobe. Dictated by: Dictated on workstation # [id number]
[2018-10-08] MEDS: cefTRIAXone 1,000 MG/SWFI 10 ML IV PUSH IV SCH ×2 (07:47)
[2018-10-08] MEDS: meTOprolol TARTRATE 50 MG (LOPRESSOR) TAB PO SCH ×2 (07:47→19:40)
[2018-10-08] MEDS: AZITHROMYCIN 250 MG TAB (ZITHROMAX) PO SCH (07:47)
[2018-10-08] MEDS ORDERED: amLODIPine 5 MG (NORVASC) TAB PO SCH (09:00)
--- NOTE | 2018-10-08 10:49 | Progress Note-Pre Operative ---
Pre-Operative Progress Note H&P Reviewed The H&P was reviewed, patient examined and no changes noted. Date Seen by Provider: Oct 08, 2018 Time Seen by Provider: 10:48 Date H&P Reviewed: Oct 08, 2018 Time H&P Reviewed: 10:48 Pre-Operative Diagnosis: GROSS HEMATURIA AND BLADDER MASS HERNANDEZ DANIELSON MD Oct 08, 2018 10:49
[2018-10-08] MEDS ORDERED: PROPOFOL DRIP (ICU) 100 ML IV ONE (11:20)
--- NOTE | 2018-10-08 11:20 | NUR ---
Dr. Collier notified of pt change to Bipap at 90% and work of breathing. Dr. Collier up to speak with pt regarding wishes. Dr. Collier ordered ABG and to intubate pt.
[2018-10-08 11:24] LABS: ABG BASE EXCESS -0.4 MMOL/L (-2.5-2.5); ABG OXYGEN SATURATION 98 % (94-100); ABG PCO2 45 MMHG (35-45); ABG PH 7.36 (7.37-7.43); ABG PO2 100 MMHG (79-93); ABG TCO2 25.5 MMOL/L (21.0-31.0)
[2018-10-08 11:28] LABS: ALLENS TEST YES-POS; INSPIRED O2 90%; PATIENT TEMP 100.1; VENTILATOR NO
[2018-10-08] MEDS ORDERED: proPOfol 200 MG/20 ML (DIPRIVAN) VIAL IV ONE (11:39)
--- NOTE | 2018-10-08 12:35 | Pulmonary Procedures ---
Pulmonary Procedures Date of Procedure Date of Service: Oct 08, 2018 Reason for Intubation: respiratory failure Time of Intubation: 12:34 Intubation Method: orotracheal Tube Size: 8 Medications: Propofol, Versed Positive End Tide CO2: Yes Breath Sounds after Intubation: bilateral-equal Intubation Complications: no complications Post Intubation Xray: Yes SOULEYMANE ABBOTT DO Oct 08, 2018 12:35
--- NOTE | 2018-10-08 12:40 | Progress Note-Post Operative ---
Post-Operative Progess Note Surgeon (s)/Substance Abuse Prevention Coordinator (s) Surgeon HERNANDEZ DANIELSON MD Substance Abuse Prevention Coordinator: NONE Pre-Operative Diagnosis GROSS HEMATURIA AND BLADDER MASS Post-Operative Diagnosis SAME Procedure & Operative Findings Date of Procedure 10/08/18 Procedure Performed/Findings CYSTOSCOPY Anesthesia Type LOCAL Estimated Blood Loss Estimated blood loss (mL): NONE Specimens/Packing Specimens Removed NONE Packing: NONE HERNANDEZ DANIELSON MD Oct 08, 2018 12:40
--- NOTE | 2018-10-08 12:42 | Diagnostic Imaging Report ---
Patient History: Pneumonia. Technique: Single frontal view of the chest Comparison: Chest radiograph on 10/08/2018 FINDINGS: There has been interval intubation with the endotracheal tube overlying the trachea approximately 5 cm above the vamshi. Enteric tube is seen descending below the diaphragm with the tip overlying the stomach. Again seen are diffuse interstitial and alveolar opacities throughout the lungs, right greater than left. There is improved aeration in the left mid and upper lung and mid right lung. No large pleural effusion or pneumothorax. Please note the right costophrenic angle is not completely included on this exam. IMPRESSION: 1. Diffuse pneumonia with mild improvement in the left mid and upper lung and right midlung. 2. Interval placement of enteric tube and endotracheal tube which appear appropriate in position. Dictated by: Dictated on workstation # [id number]
--- NOTE | 2018-10-08 12:47 | Progress Note ---
Subjective Subjective Date Seen by Provider: Oct 08, 2018 Time Seen by Provider: 12:41 Intubated today due to worsening respiratory status. Review of Systems General: No Chills, No Night Sweats HEENT: No Head Aches, No Visual Changes Pulmonary: Dyspnea, Cough Cardiovascular: No: Chest Pain, Palpitations Gastrointestinal: No: Nausea, Vomiting, Abdominal Pain Genitourinary: No Dysuria Neurological: Weakness; No: Change in speech, Confusion Objective Exam Vital Signs Vital Signs Date Time Temp Pulse Resp B/P (MAP) Pulse Ox O2 Delivery O2 Flow Rate FiO2 10/08/18 12:00 89 20 94 NIV Bilevel 90.00 10/08/18 11:00 87 22 114/79 (91) 96 NIV Bilevel 90.00 10/08/18 10:17 93 Vapotherm 40.00 90 10/08/18 10:00 105 37 166/98 (120) 91 Vapotherm 70.00 39.00 10/08/18 09:00 95 37 171/104 (126) 91 Vapotherm 70.00 39.00 10/08/18 08:01 98.4 10/08/18 08:00 110 26 153/84 (107) 92 Vapotherm 70.00 39.00 10/08/18 07:59 92 NIV Bilevel 39.00 10/08/18 07:00 109 10/08/18 07:00 111 18 170/85 (113) 91 Vapotherm 70.00 39.00 10/08/18 06:30 93 Vapotherm 39.00 70 10/08/18 06:00 111 17 169/83 (111) 93 Vapotherm 70.00 39.00 10/08/18 05:00 107 27 172/91 (118) 95 NIV Bilevel 55.00 10/08/18 04:00 104 30 167/84 (111) 94 NIV Bilevel 55.00 10/08/18 03:59 99.7 10/08/18 03:36 114 29 95 55.00 10/08/18 03:00 107 23 159/80 (106) 92 NIV Bilevel 55.00 10/08/18 02:08 102 34 94 60.00 10/08/18 02:00 101 29 171/88 (115) 94 NIV Bilevel 60.00 10/08/18 01:00 103 26 161/87 (111) 95 NIV Bilevel 60.00 10/08/18 01:00 103 10/08/18 00:00 98 25 163/92 (115) 95 NIV Bilevel 60.00 10/08/18 00:00 98.4 10/07/18 23:00 108 28 177/94 (121) 82 NIV Bilevel 60.00 10/07/18 22:00 104 18 179/90 (119) 87 Vapotherm 50.00 30.00 10/07/18 22:00 104 31 95 60.00 10/07/18 21:00 94 31 174/101 (125) 95 Vapotherm 50.00 30.00 10/07/18 20:00 NIV Bilevel 60.00 10/07/18 20:00 96 30 166/87 (113) 96 Vapotherm 50.00 30.00 10/07/18 19:52 98.2 10/07/18 19:14 98 30 95 60.00 10/07/18 19:00 98 26 134/44 (74) 92 Vapotherm 50.00 30.00 10/07/18 19:00 97 10/07/18 18:00 109 14 160/82 (108) 91 Vapotherm 50.00 30.00 10/07/18 17:00 109 28 171/88 (115) 92 Vapotherm 50.00 30.00 10/07/18 16:00 87 21 162/90 (114) 95 NIV Bilevel 50.00 10/07/18 15:30 99.4 10/07/18 15:00 106 33 162/85 (110) 96 NIV Bilevel 50.00 10/07/18 14:00 94 24 167/93 (117) 97 NIV Bilevel 50.00 10/07/18 13:00 93 21 164/91 (115) 98 NIV Bilevel 50.00 10/07/18 12:52 98 I & O 10/08/18 07:00 Intake Total 2430 ml Output Total 5400 ml Balance -2970 ml General Appearance: Moderate Distress (respiratory) Eyes: Bilateral Eye Normal Inspection, Bilateral Eye PERRL, Bilateral Eye EOMI HEENT: PERRL/EOMI Neck: Full Range of Motion, Normal Inspection, Non Tender, Supple Respiratory: Chest Non Tender, Crackles, Decreased Breath Sounds, Rhonci, Wheezing Cardiovascular: Regular Rate, Rhythm Gastrointestinal: Non Tender, Soft Rectal: Deferred Extremity: Normal Capillary Refill, Normal Range of Motion, Non Tender, No Calf Tenderness Neurologic/Psychiatric: Alert, Oriented x3, No Motor/Sensory Deficits, Normal Mood/Affect Skin: Warm/Dry Lymphatic: No Adenopathy Results Lab Laboratory Tests 10/07/18 15:54: Glucometer 157H 10/07/18 21:28: Glucometer 263H 10/08/18 03:20: White Blood Count 15.7H, Red Blood Count 4.63, Hemoglobin 13.5, Hematocrit 42, Mean Corpuscular Volume 90, Mean Corpuscular Hemoglobin 29, Mean Corpuscular Hemoglobin Concent 33, Red Cell Distribution Width 15.5H, Platelet Count 241, Mean Platelet Volume 11.3H, Neutrophils (%) (Auto) 84H, Lymphocytes (%) (Auto) 7L, Monocytes (%) (Auto) 9, Eosinophils (%) (Auto) 0, Basophils (%) (Auto) 0, Neutrophils # (Auto) 13.2H, Lymphocytes # (Auto) 1.1, Monocytes # (Auto) 1.4H, Eosinophils # (Auto) 0.0, Basophils # (Auto) 0.0, Prothrombin Time 26.3H, INR Comment 2.3H, Sodium Level 141, Potassium Level 3.8, Chloride Level 109H, Carbon Dioxide Level 19L, Anion Gap 13, Blood Urea Nitrogen 22H, Creatinine 1.56H, Estimat Glomerular Filtration Rate 43, BUN/Creatinine Ratio 14, Glucose Level 168H, Calcium Level 9.7, Phosphorus Level 3.7, Magnesium Level 1.8, Albumin 3.4 10/08/18 03:48: Blood Gas Puncture Site RIGHT RADIAL, Blood Gas Patient Temperature 100.6, Arterial Blood pH 7.38, Arterial Blood Partial Pressure CO2 41, Arterial Blood Partial Pressure O2 65L, Arterial Blood HCO3 23, Arterial Blood Total CO2 24.0, Arterial Blood Oxygen Saturation 91L, Arterial Blood Base Excess -1.4, Peewee Test POSITIVE, Blood Gas Ventilator Setting NO, Blood Gas Inspired Oxygen 55% BIPAP 10/08/18 11:15: Blood Gas Puncture Site R RADIAL, Blood Gas Patient Temperature 100.1, Arterial Blood pH 7.36L, Arterial Blood Partial Pressure CO2 45, Arterial Blood Partial Pressure O2 100H, Arterial Blood HCO3 24, Arterial Blood Total CO2 25.5, Arterial Blood Oxygen Saturation 98, Arterial Blood Base Excess -0.4, Peewee Test YES-POS, Blood Gas Ventilator Setting NO, Blood Gas Inspired Oxygen 90% 10/08/18 11:38: Glucometer 167H Microbiology 10/06/18 Blood Culture - Preliminary, Resulted No growth Assessment/Plan Assessment/Plan Admission Dx acute hypoxic respiratory failure due to pneumonia Assessment and Plan 10/06/18- admitted 10/07/18- transferred to ICU for worsening respiratory status -panculture pending- -continue rocephin, azithromycin -RT consulted -Dr. Collier consulted on Vapotherm Creatinine improved. -urinary catheter placed due to patient's respiratory status- clots noted with hematuria- Dr. Ojeda consulted - 10/08/18- intubated by Dr. Collier for worsening respiratory status. Warfarin held. on ppx lovenox. This is a difficult case with the hematuria but increased risk of clot from his factor V leiden. Dispo: escalating care- Pt is currently full code- His prognosis with all of his co-morbidities- is guarded/poor. Problems: (1) Acute respiratory failure with hypoxia (2) Acute on chronic kidney failure Qualifiers: Assessment & Plan: avoid nephrotoxic agents, no NSAIDs. 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 Ojeda consulted (12) Bladder tumor Assessment & Plan: causing issue with the one working ureter -may be transferred to for escalation of care. Admission Dx acute hypoxic respiratory failure due to pneumonia Clinical Quality Measures Admission Status Admission Dx acute hypoxic respiratory failure due to pneumonia DVT/VTE Risk/Contraindication: Risk Factor Score Per Nursin RFS Level Per Nursing on Admit: 4+=Very High AL PETERSEN MD Oct 08, 2018 12:47
--- NOTE | 2018-10-08 12:58 | NUR ---
1149 2mg versed administered - RT bagging pt 1155 propofol 5mL and 2mg versed administered 1157 RT bagging pt 1158 5mL propofol administered. pt intubated, ett 8 24 at the lip. 1159 1L bolus NS 1200 TV 500, PEEP 5 FIO2 100% Rate 20, restraints placed 1201 Propofol drip at 20 started 1204 OG placed 1205 Fentanyl 50mcg IV - IV CADD ordered 1207 5mL propofol and 4mg versed administered. 1210 IV started in R arm.
--- NOTE | 2018-10-08 13:06 | NUR ---
Management Trainee Marketing follow up with pt's granddaughter, Danielle, who was tearful upon hearing that the pt would be intubated. The pt's , Pt, is also in ICU. The was brought to the room to see the pt prior to intubation. Dr. Ojeda and Dr. Collier in to see pt. Provided support to the pt prior to intubation and offered ongoing support to Danielle throughout procedure. Danielle is the primary care and DPOA for both grandparents. She was raised by them and describes them as "the best grandparents in the world."
[2018-10-08] MEDS ORDERED: fentaNYL INJECTION 100 MCG/2 ML AMP INJ ONE (13:11)
[2018-10-08] MEDS ORDERED: MIDAZOLAM 5 MG/5 ML (VERSED) VIAL IJ ONE (13:11)
[2018-10-08] MEDS: fentaNYL INJECTION 1,250 MCG in NS (IVPB) 250 ML IV SCH (13:52)
[2018-10-08 14:21] LABS: ABG BASE EXCESS -2.4 MMOL/L (-2.5-2.5); ABG OXYGEN SATURATION 98 % (94-100); ABG PCO2 52 MMHG (35-45); ABG PO2 112 MMHG (79-93); ABG TCO2 24.6 MMOL/L (21.0-31.0)
[2018-10-08 14:25] LABS: ABG PH 7.28 (7.37-7.43); ALLENS TEST YES-POS; INSPIRED O2 100% PEEP 10; PATIENT TEMP 101.1; VENTILATOR YES
--- NOTE | 2018-10-08 15:41 | OPERATIVE REPORT ---
DATE OF SERVICE: 10/08/2018 PREOPERATIVE DIAGNOSES: Gross hematuria and bladder mass. POSTOPERATIVE DIAGNOSES: Gross hematuria and bladder mass. OPERATION PERFORMED: Cystoscopy. SURGEON: Ernesto Danielson MD ANESTHESIA: Local. COMPLICATIONS: None. DESCRIPTION OF PROCEDURE: With the patient supine on his bed with the head elevated because of his breathing, genitalia were prepped and draped in the usual sterile fashion. Flexible cystoscope was introduced under vision. The anterior urethra was normal. The prostate was slightly enlarged with some bladder neck obstruction. The bladder was inspected. There was cloudiness, but there was an abnormal area in the floor of the bladder more so on the right side. I was unable to visualize the ureteric orifices because of vision from cloudy fluid. The area did not look like a typical bladder tumor whether papillary or nodular. There were some edema and some inflammatory changes, but no active bleeding. There was no other abnormal area. Cystoscopy was confirmed in an antegrade fashion and the cystoscope was removed. The patient tolerated the procedure and anesthesia well, remained in his bed in stable condition. PLAN: I discussed with the family and his and others and we are going to let him recover from his lung situation at this point. Probably in 4 months, we will do a flexible cystoscopy at the office. If this area is still present there then we will proceed with a transurethral resection if medically feasible, of course. The referral will also be present. If he wishes to do so, we will discuss that later. As long as the right kidney is functioning and open, we can always wait for the above plan. Job ID: [id number] DocumentID: [id number] Dictated Date: 10/08/2018 12:44:39 Replanting Machine Crew Date: 10/08/2018 15:40:53 Dictated By: ERNESTO DANIELSON MD
[2018-10-08] MEDS ORDERED: inSUlin ASPART (NovoLOG) 1 UNIT/0.01 ML (CHARGE PER UNIT) ONE (16:33)
[2018-10-08] MEDS: inSUlin ASPART (NovoLOG) 1 UNIT/0.01 ML (CHARGE PER UNIT) SC PRN (16:42)
[2018-10-08] MEDS: NS IV 1000 ML 1,000 ML IV SCH (18:51)
[2018-10-08] MEDS: PROPOFOL DRIP (ICU) 100 ML IV SCH (20:27)
[2018-10-08] MEDS: ENOXAPARIN 40 MG/0.4 ML (LOVENOX) SYR SQ SCH (22:30)
[2018-10-09] VITALS (27 sets, daily range): BP systolic 88–182; BP diastolic 33–80
[2018-10-09] MEDS: PROPOFOL DRIP (ICU) 100 ML IV SCH ×8 (00:52→22:21)
[2018-10-09] MEDS: NS IV 1000 ML 1,000 ML IV SCH (01:08)
[2018-10-09] MEDS: RT-ALBUTEROL/IPRATROPIUM 3 ML (DUONEB) VIAL INH SCH ×6 (03:00→22:51)
[2018-10-09 04:08] LABS: BASOPHILS % (AUTO) 0 % (0-10); EOSINOPHILS # (AUTO) 0.2 10^3/uL (0.0-0.3); EOSINOPHILS % (AUTO) 2 % (0-10); HEMATOCRIT 34 % (40-54); HEMOGLOBIN 10.9 G/DL (13.3-17.7); LYMPHOCYTES # (AUTO) 1.1 X 10^3 (1.0-4.0); LYMPHOCYTES % (AUTO) 11 % (12-44); MEAN CORPUSCULAR HEMOGLOBIN 30 PG (25-34); MEAN CORPUSCULAR HGB CONC 32 G/DL (32-36); MEAN CORPUSCULAR VOLUME 92 FL (80-99); MONOCYTES # (AUTO) 0.7 X 10^3 (0.0-1.0); MONOCYTES % (AUTO) 7 % (0-12); NEUTROPHILS # (AUTO) 7.8 X 10^3 (1.8-7.8); NEUTROPHILS % (AUTO) 80 % (42-75); PLATELET COUNT 183 10^3/uL (130-400); RED CELL DISTRIBUTION WIDTH 15.4 % (10.0-14.5); WHITE BLOOD COUNT 9.8 10^3/uL (4.3-11.0)
[2018-10-09 04:18] LABS: PROTHROMBIN TIME PATIENT 23.1 SEC (12.2-14.7)
[2018-10-09 04:30] LABS: MAGNESIUM 1.5 MG/DL (1.8-2.4)
[2018-10-09 04:34] LABS: CALCIUM 8.5 MG/DL (8.5-10.1); CREATININE SERUM 1.85 MG/DL (0.60-1.30); POTASSIUM 3.5 MMOL/L (3.6-5.0)
[2018-10-09 04:41] LABS: ABG BASE EXCESS -3.8 MMOL/L (-2.5-2.5); ABG OXYGEN SATURATION 95 % (94-100); ABG PCO2 44 MMHG (35-45); ABG PO2 71 MMHG (79-93)
[2018-10-09 04:43] LABS: ALLENS TEST POSITIVE; INSPIRED O2 65% VENT; PATIENT TEMP 97.1; VENTILATOR YES
[2018-10-09 04:44] LABS: ABG PH 7.31 (7.37-7.43)
[2018-10-09] MEDS: POTASSIUM CL 10MEQ/50ML IVPB 50 ML IV SCH ×5 (06:08→08:14)
[2018-10-09] MEDS: KCL 20 MEQ TAB (K-DUR) PO SCH (06:09)
[2018-10-09] MEDS: MAGNESIUM 1 GM/100 ML IVPB 100 ML IV SCH ×3 (06:09→08:02)
--- NOTE | 2018-10-09 07:22 | Pulmonary Progress Note ---
Subjective Time Seen by a Provider: 07:17 Subjective/Events-last exam Pt is sedated on vent. Sepsis Event Evaluation Height, Weight, BMI Height: 5'10.00" Weight: 262lbs. 3.2oz. [id number]; 37.6 BMI Method:Estimated Focused Exam Lactate Level 10/06/18 14:44: Lactic Acid Level 2.10*H 10/06/18 18:51: Lactic Acid Level 1.69 10/07/18 10:05: Lactic Acid Level 1.11 Exam Exam Vital Signs Date Time Temp Pulse Resp B/P (MAP) Pulse Ox O2 Delivery O2 Flow Rate FiO2 10/09/18 06:26 82 26 95 60 10/09/18 06:18 Mechanical Ventilator 60.00 10/09/18 06:00 86 24 121/62 (81) 91 Mechanical Ventilator 65.00 10/09/18 05:00 71 23 119/58 (78) 94 Mechanical Ventilator 65.00 10/09/18 04:09 97.3 74 23 113/54 93 Mechanical Ventilator 65.00 10/09/18 04:00 74 23 113/54 (73) 93 Mechanical Ventilator 65.00 10/09/18 03:00 75 24 95 65 10/09/18 03:00 75 24 129/64 (85) 95 Mechanical Ventilator 65.00 10/09/18 02:00 79 24 110/52 (71) 96 Mechanical Ventilator 70.00 10/09/18 01:00 85 23 118/74 (89) 93 Mechanical Ventilator 70.00 10/09/18 01:00 103 10/09/18 00:52 97.3 Mechanical Ventilator 10/09/18 00:48 Mechanical Ventilator 70.00 10/09/18 00:15 85 26 95 70 10/09/18 00:00 72 23 122/61 (81) 95 Mechanical Ventilator 75.00 10/08/18 23:00 75 23 128/66 (86) 94 Mechanical Ventilator 75.00 10/08/18 22:30 96.4 10/08/18 22:17 Mechanical Ventilator 75.00 10/08/18 22:15 67 24 97 75 10/08/18 22:00 67 23 116/61 (79) 96 Mechanical Ventilator 80.00 10/08/18 21:00 69 23 118/62 (80) 96 Mechanical Ventilator 80.00 10/08/18 20:43 Mechanical Ventilator 80.00 10/08/18 20:40 69 24 97 80 10/08/18 20:27 97.0 68 23 113/60 97 Mechanical Ventilator 90.00 10/08/18 20:00 Mechanical Ventilator 90 10/08/18 20:00 69 23 113/58 (76) 98 Mechanical Ventilator 90.00 10/08/18 19:33 97.0 68 23 113/60 (77) 97 Mechanical Ventilator 90.00 10/08/18 19:07 Mechanical Ventilator 90.00 10/08/18 19:00 67 10/08/18 19:00 65 24 97 90 10/08/18 18:00 66 24 115/59 (77) 97 Mechanical Ventilator 100.00 10/08/18 17:00 67 23 97/65 (76) 97 Mechanical Ventilator 100.00 10/08/18 16:05 65 24 97 100 10/08/18 16:00 65 23 100/53 (69) 97 Mechanical Ventilator 100.00 10/08/18 15:45 97.2 10/08/18 15:00 68 23 93/48 (63) 96 Mechanical Ventilator 100.00 10/08/18 14:20 66 24 96 100 10/08/18 14:00 100.0 72 15 112/62 93 Mechanical Ventilator 100.00 10/08/18 14:00 72 15 112/62 (79) 93 Mechanical Ventilator 100.00 10/08/18 13:00 71 28 106/62 (77) 92 Mechanical Ventilator 100.00 10/08/18 12:46 76 10/08/18 12:00 89 20 94 NIV Bilevel 90.00 10/08/18 11:58 71 27 92 100 10/08/18 11:00 87 22 114/79 (91) 96 NIV Bilevel 90.00 10/08/18 10:17 93 Vapotherm 40.00 90 10/08/18 10:00 105 37 166/98 (120) 91 Vapotherm 70.00 39.00 10/08/18 09:00 95 37 171/104 (126) 91 Vapotherm 70.00 39.00 10/08/18 08:01 98.4 10/08/18 08:00 110 26 153/84 (107) 92 Vapotherm 70.00 39.00 10/08/18 07:59 92 NIV Bilevel 39.00 I & O 10/09/18 07:00 Intake Total 2000 ml Output Total 3175 ml Balance -1175 ml Height & Weight Height: 5'10.00" Weight: 262lbs. 3.2oz. 118.088981pi; 37.6 BMI Method:Estimated General Appearance: Other (sedated on vent) HEENT: PERRL/EOMI Neck: Full Range of Motion, Normal Inspection, Non Tender, Supple Respiratory: Chest Non Tender, Crackles, Decreased Breath Sounds Cardiovascular: Regular Rate, Rhythm Capillary Refill: Less Than 3 Seconds Gastrointestinal: normal bowel sounds, non tender, soft Extremity: Normal Capillary Refill, Normal Range of Motion, Non Tender, No Calf Tenderness Neurologic/Psychiatric: Alert, Oriented x3, No Motor/Sensory Deficits, Normal Mood/Affect Skin: Warm/Dry Lymphatic: No Adenopathy Results Lab Laboratory Tests 10/08/18 03:20 10/09/18 03:06 Assessment/Plan Assessment/Plan Acute respiratory failure with ARDS Pa02/Fi02 = 109.2 -Check Echocardiogram -Cont vent. Increase RR to 26 -Increase Peep to 12 -Repeat ABG later this AM Bilateral PNA -Rocephin and azithromycin 10/07 -Improving leukocytosis. 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 Currently pt is a no code blue. SOULEYMANE ABBOTT DO Oct 09, 2018 07:22
[2018-10-09] MEDS: LACTATED RINGERS 1,000 ML IV SCH ×3 (07:24→21:23)
--- NOTE | 2018-10-09 07:28 | Diagnostic Imaging Report ---
Indication: Ventilated patient. Comparison: 10/08/2018 Findings: 2 frontal radiographic views of the chest were obtained and show indwelling endotracheal tube with tip at the lower level of the clavicular heads. Gastric tube tip is obscured. Lungs continue to show diffuse interstitial opacities with areas of dense alveolar consolidation throughout, but right greater than left. There is no significant change when compared to prior exam. No large effusion or pneumothorax is identified. Cardiac silhouette and pulmonary vasculature stable. Osseous structures show no significant interval change. Impression: 1. Stable exam of the chest showing bilateral diffuse mixed interstitial and alveolar infiltrates. Continued followup is recommended. 2. Lines and tubes as above. Dictated by: Dictated on workstation # [id number]
[2018-10-09] MEDS: cefTRIAXone 1,000 MG/SWFI 10 ML IV PUSH IV SCH ×2 (08:01)
[2018-10-09] MEDS: PANTOPRAZOLE 40 MG (PROTONIX) VIAL IV SCH (08:01)
[2018-10-09] MEDS: AZITHROMYCIN 250 MG TAB (ZITHROMAX) PO SCH (08:01)
[2018-10-09] MEDS: meTOprolol TARTRATE 50 MG (LOPRESSOR) TAB PO SCH ×2 (08:01→21:17)
--- NOTE | 2018-10-09 09:49 | Progress Note - Urology ---
Progress Note-Urology Progress Notes/Assess & Plan Progress/Assessment & Plan STABLE. URINE TINGED Final Diagnosis GROSS HEMATURIA AND BLADDER MASS HERNANDEZ DANIELSON MD Oct 09, 2018 09:49
[2018-10-09] MEDS: fentaNYL INJECTION 1,250 MCG in NS (IVPB) 250 ML IV SCH (10:22)
--- NOTE | 2018-10-09 12:44 | Progress Note ---
Subjective Subjective Date Seen by Provider: Oct 09, 2018 Time Seen by Provider: 12:40 Still intubated- RR increased- now ARDS. Updated (she was a patient in ICU 5 for chest pain, awaiting cath) yesterday of situation and she voiced understanding that she and Don had a talk a few days ago that they are aging with multiple health issues and one of them could be in this situation in the near future. Will keep updated. Review of Systems ROS Unable to Obtain: intubated General: No Chills, No Night Sweats HEENT: No Head Aches, No Visual Changes Pulmonary: Dyspnea; No Cough Cardiovascular: No: Chest Pain, Palpitations Gastrointestinal: No: Nausea, Vomiting, Abdominal Pain Genitourinary: No Dysuria Neurological: Weakness; No: Change in speech, Confusion Objective Exam Vital Signs Vital Signs Date Time Temp Pulse Resp B/P (MAP) Pulse Ox O2 Delivery O2 Flow Rate FiO2 10/09/18 12:00 78 26 119/64 (82) 91 Mechanical Ventilator 60.00 10/09/18 11:56 Mechanical Ventilator 60.00 10/09/18 11:35 98.1 10/09/18 10:55 73 26 92 55 10/09/18 10:46 25 121/67 91 Mechanical Ventilator 60.00 10/09/18 10:00 70 26 114/68 (83) 92 Mechanical Ventilator 60.00 10/09/18 09:00 68 25 88/49 (62) 93 Mechanical Ventilator 60.00 10/09/18 08:00 Mechanical Ventilator 60.00 92 10/09/18 08:00 86 26 130/62 (84) 96 Mechanical Ventilator 60.00 10/09/18 07:25 97.3 82 26 140/80 95 Mechanical Ventilator 60.00 10/09/18 07:00 85 10/09/18 07:00 85 20 129/62 (84) 96 Mechanical Ventilator 60.00 10/09/18 06:26 82 26 95 60 10/09/18 06:18 Mechanical Ventilator 60.00 10/09/18 06:00 86 24 121/62 (81) 91 Mechanical Ventilator 65.00 10/09/18 05:00 71 23 119/58 (78) 94 Mechanical Ventilator 65.00 10/09/18 04:09 97.3 74 23 113/54 93 Mechanical Ventilator 65.00 10/09/18 04:00 74 23 113/54 (73) 93 Mechanical Ventilator 65.00 10/09/18 03:00 75 24 95 65 10/09/18 03:00 75 24 129/64 (85) 95 Mechanical Ventilator 65.00 10/09/18 02:00 79 24 110/52 (71) 96 Mechanical Ventilator 70.00 10/09/18 01:00 85 23 118/74 (89) 93 Mechanical Ventilator 70.00 10/09/18 01:00 103 10/09/18 00:52 97.3 Mechanical Ventilator 10/09/18 00:48 Mechanical Ventilator 70.00 10/09/18 00:15 85 26 95 70 10/09/18 00:00 72 23 122/61 (81) 95 Mechanical Ventilator 75.00 10/08/18 23:00 75 23 128/66 (86) 94 Mechanical Ventilator 75.00 10/08/18 22:30 96.4 10/08/18 22:17 Mechanical Ventilator 75.00 10/08/18 22:15 67 24 97 75 10/08/18 22:00 67 23 116/61 (79) 96 Mechanical Ventilator 80.00 10/08/18 21:00 69 23 118/62 (80) 96 Mechanical Ventilator 80.00 10/08/18 20:43 Mechanical Ventilator 80.00 10/08/18 20:40 69 24 97 80 10/08/18 20:27 97.0 68 23 113/60 97 Mechanical Ventilator 90.00 10/08/18 20:00 Mechanical Ventilator 90 10/08/18 20:00 69 23 113/58 (76) 98 Mechanical Ventilator 90.00 10/08/18 19:33 97.0 68 23 113/60 (77) 97 Mechanical Ventilator 90.00 10/08/18 19:07 Mechanical Ventilator 90.00 10/08/18 19:00 67 10/08/18 19:00 65 24 97 90 10/08/18 18:00 66 24 115/59 (77) 97 Mechanical Ventilator 100.00 10/08/18 17:00 67 23 97/65 (76) 97 Mechanical Ventilator 100.00 10/08/18 16:05 65 24 97 100 10/08/18 16:00 65 23 100/53 (69) 97 Mechanical Ventilator 100.00 10/08/18 15:45 97.2 10/08/18 15:00 68 23 93/48 (63) 96 Mechanical Ventilator 100.00 10/08/18 14:20 66 24 96 100 10/08/18 14:00 100.0 72 15 112/62 93 Mechanical Ventilator 100.00 10/08/18 14:00 72 15 112/62 (79) 93 Mechanical Ventilator 100.00 10/08/18 13:00 71 28 106/62 (77) 92 Mechanical Ventilator 100.00 10/08/18 12:46 76 I & O 10/09/18 07:00 Intake Total 2000 ml Output Total 3175 ml Balance -1175 ml General Appearance: Other (sedated on vent) Eyes: Bilateral Eye Normal Inspection, Bilateral Eye PERRL, Bilateral Eye EOMI Neck: Non Tender, Supple Respiratory: Chest Non Tender, Crackles, Decreased Breath Sounds Cardiovascular: Regular Rate, Rhythm Gastrointestinal: Non Tender, Soft Rectal: Deferred Extremity: Normal Capillary Refill, Normal Range of Motion, Non Tender, No Calf Tenderness Neurologic/Psychiatric: Alert, Oriented x3, No Motor/Sensory Deficits, Normal Mood/Affect Skin: Warm/Dry Lymphatic: No Adenopathy Results Lab Laboratory Tests 10/08/18 14:10: Blood Gas Puncture Site R RAD, Blood Gas Patient Temperature 101.1, Arterial Blood pH 7.28*L, Arterial Blood Partial Pressure CO2 52H, Arterial Blood Partial Pressure O2 112H, Arterial Blood HCO3 23, Arterial Blood Total CO2 24.6, Arterial Blood Oxygen Saturation 98, Arterial Blood Base Excess -2.4, Peewee Test YES-POS, Blood Gas Ventilator Setting YES, Blood Gas Inspired Oxygen 100% PEEP 10 10/08/18 15:41: Glucometer 153H 10/09/18 01:28: Glucometer 140H 10/09/18 03:06: White Blood Count 9.8, Red Blood Count 3.70L, Hemoglobin 10.9L, Hematocrit 34L, Mean Corpuscular Volume 92, Mean Corpuscular Hemoglobin 30, Mean Corpuscular Hemoglobin Concent 32, Red Cell Distribution Width 15.4H, Platelet Count 183, Mean Platelet Volume 12.0H, Neutrophils (%) (Auto) 80H, Lymphocytes (%) (Auto) 11L, Monocytes (%) (Auto) 7, Eosinophils (%) (Auto) 2, Basophils (%) (Auto) 0, Neutrophils # (Auto) 7.8, Lymphocytes # (Auto) 1.1, Monocytes # (Auto) 0.7, Eosinophils # (Auto) 0.2, Basophils # (Auto) 0.0, Prothrombin Time 23.1H, INR Comment 2.0H, Sodium Level 142, Potassium Level 3.5L, Chloride Level 111H, Carbon Dioxide Level 20L, Anion Gap 11, Blood Urea Nitrogen 26H, Creatinine 1.85H, Estimat Glomerular Filtration Rate 35, BUN/Creatinine Ratio 14, Glucose Level 143H, Calcium Level 8.5, Phosphorus Level 4.1, Magnesium Level 1.5L, Triglycerides Level 299H 10/09/18 04:35: Blood Gas Puncture Site LEFT RADIAL, Blood Gas Patient Temperature 97.1, Arterial Blood pH 7.31*L, Arterial Blood Partial Pressure CO2 44, Arterial Blood Partial Pressure O2 71L, Arterial Blood HCO3 22L, Arterial Blood Total CO2 23.0, Arterial Blood Oxygen Saturation 95, Arterial Blood Base Excess -3.8L, Peewee Test POSITIVE, Blood Gas Ventilator Setting YES, Blood Gas Inspired Oxygen 65% VENT 10/09/18 11:35: Glucometer 189H Microbiology 10/06/18 Blood Culture - Preliminary, Resulted No growth 10/08/18 Gram Stain - Final, Resulted 10/08/18 Sputum Culture, Resulted Pending Assessment/Plan Assessment/Plan Admission Dx acute hypoxic respiratory failure due to pneumonia Assessment and Plan 10/06/18- admitted 10/07/18- transferred to ICU for worsening respiratory status -panculture pending- -continue rocephin, azithromycin -RT consulted -Dr. Collier consulted on Vapotherm Creatinine improved. -urinary catheter placed due to patient's respiratory status- clots noted with hematuria- Dr. Ojeda consulted - 10/08/18- intubated by Dr. Collier for worsening respiratory status. Warfarin held. on ppx lovenox. This is a difficult case with the hematuria but increased risk of clot from his factor V leiden. 10/09/18- now in ARDS- Dr. Collier is managing vent. Since INR is down to 2 and warfarin held. STOPPED Lovenox ( reports he has developed clots with lovenox but heparin worked)- starting heparin gtts (therapeutic protocol). Monitor for bleeding. replacing lytes as needed. IVF switched to LR. Cr a little worse. continue to monitor. Leukocytosis resolved. Dispo: His prognosis with all of his co-morbidities- is guarded/poor. Will keep updated. Problems: (1) Acute respiratory failure with hypoxia (2) Acute on chronic kidney failure Qualifiers: Assessment & Plan: -he has 1 kidney- due to h/o kidney cancer avoid nephrotoxic agents, no NSAIDs. (3) Diabetes mellitus with diabetic nephropathy Qualifiers: Qualified Codes: E11.21 - Type 2 diabetes mellitus with diabetic nephropathy; Z79.4 - intermission coordinator (current) use of insulin Assessment & Plan: Hga1c 8.5 continue insulin SSI hold metformin (acute kidney failure) (4) Factor 5 Leiden mutation, heterozygous (5) History of DVT (deep vein thrombosis) (6) Obesity (BMI 30-39.9) (7) Obesity hypoventilation syndrome (8) ESPERANZA (obstructive sleep apnea) (9) Pneumonia Qualifiers: Qualified Codes: J18.9 - Pneumonia, unspecified organism Assessment & Plan: rocephin azithromycin (10) Lactic acidosis (11) Hematuria Qualifiers: Qualified Codes: R31.0 - Gross hematuria Assessment & Plan: Dr. Ojeda consulted (12) Bladder tumor Assessment & Plan: causing issue with the one working ureter -may be transferred to for escalation of care. Admission Dx acute hypoxic respiratory failure due to pneumonia Clinical Quality Measures Admission Status Admission Dx acute hypoxic respiratory failure due to pneumonia DVT/VTE Risk/Contraindication: Risk Factor Score Per Nursin RFS Level Per Nursing on Admit: 4+=Very High AL PETERSEN MD Oct 09, 2018 12:44
--- NOTE | 2018-10-09 13:36 | Anesthesia-Procedure Note ---
Procedures/Interventions Procedure Start/Stop/Diagnosis Date of Procedure: Oct 09, 2018 Start Time: 13:15 Stop Time: 13:25 Arterial Line Arterial Line Catheter: 20G Type: Radial Location: Right Procedure: prepped, draped in sterile fashion, good wave-form was obtained, patient tolerated procedure well, no immediate complications NELA STORM CRNA Oct 09, 2018 13:36
[2018-10-09 13:47] LABS: PROTHROMBIN TIME PATIENT 23.9 SEC (12.2-14.7)
--- NOTE | 2018-10-09 15:21 | NUR ---
Hand Umbrella Tipper follow up: provided emotional and spiritual support to pt's family at bedside.
[2018-10-09] MEDS: HEParin 1000 UNIT/ML (10ML VIAL) FOR BOLUS IV SCH (16:36)
[2018-10-09] MEDS: HEParin DRIP 25000 UNIT/500ML 500 ML IV SCH (16:43)
[2018-10-10] VITALS (26 sets, daily range): BP systolic 94–173; BP diastolic 34–67
[2018-10-10] MEDS: PROPOFOL DRIP (ICU) 100 ML IV SCH ×7 (00:54→22:08)
[2018-10-10] MEDS: fentaNYL INJECTION 1,250 MCG in NS (IVPB) 250 ML IV SCH ×2 (01:42→17:16)
[2018-10-10] MEDS: RT-ALBUTEROL/IPRATROPIUM 3 ML (DUONEB) VIAL INH SCH ×6 (02:11→22:09)
[2018-10-10 03:26] LABS: BASOPHILS % (AUTO) 0 % (0-10); EOSINOPHILS # (AUTO) 0.3 10^3/uL (0.0-0.3); EOSINOPHILS % (AUTO) 4 % (0-10); HEMATOCRIT 31 % (40-54); HEMOGLOBIN 10.1 G/DL (13.3-17.7); LYMPHOCYTES # (AUTO) 1.1 X 10^3 (1.0-4.0); LYMPHOCYTES % (AUTO) 16 % (12-44); MEAN CORPUSCULAR HEMOGLOBIN 29 PG (25-34); MEAN CORPUSCULAR HGB CONC 32 G/DL (32-36); MEAN CORPUSCULAR VOLUME 90 FL (80-99); MONOCYTES # (AUTO) 0.5 X 10^3 (0.0-1.0); MONOCYTES % (AUTO) 7 % (0-12); NEUTROPHILS # (AUTO) 5.2 X 10^3 (1.8-7.8); NEUTROPHILS % (AUTO) 73 % (42-75); PLATELET COUNT 196 10^3/uL (130-400); RED CELL DISTRIBUTION WIDTH 15.5 % (10.0-14.5); WHITE BLOOD COUNT 7.1 10^3/uL (4.3-11.0)
[2018-10-10] MEDS: LACTATED RINGERS 1,000 ML IV SCH ×4 (03:33→23:19)
[2018-10-10 03:47] LABS: CALCIUM 8.3 MG/DL (8.5-10.1); CREATININE SERUM 1.83 MG/DL (0.60-1.30); MAGNESIUM 2.1 MG/DL (1.8-2.4); PHOSPHORUS 3.5 MG/DL (2.3-4.7); POTASSIUM 3.3 MMOL/L (3.6-5.0)
[2018-10-10 04:00] LABS: INR 1.8 (0.8-1.4); PROTHROMBIN TIME PATIENT 21.7 SEC (12.2-14.7)
[2018-10-10 04:30] LABS: ABG BASE EXCESS -4.3 MMOL/L (-2.5-2.5); ABG OXYGEN SATURATION 94 % (94-100); ABG PCO2 39 MMHG (35-45); ABG PO2 71 MMHG (79-93); ABG TCO2 21.8 MMOL/L (21.0-31.0)
[2018-10-10 04:33] LABS: ALLENS TEST ARTLINE
[2018-10-10 04:34] LABS: ABG PH 7.34 (7.37-7.43); INSPIRED O2 60%; PATIENT TEMP 97.3; VENTILATOR YES
[2018-10-10] MEDS: HEParin 1000 UNIT/ML (10ML VIAL) FOR BOLUS IV SCH (04:57)
[2018-10-10] MEDS: POTASSIUM CL 10MEQ/50ML IVPB 50 ML IV SCH ×3 (04:58→06:37)
[2018-10-10] MEDS: MAGNESIUM 1 GM/100 ML IVPB 100 ML IV SCH (04:59)
[2018-10-10] MEDS: KCL 20 MEQ TAB (K-DUR) PO SCH (05:00)
[2018-10-10] MEDS ORDERED: MIDAZOLAM 5 MG/5 ML (VERSED) VIAL ONE (06:19)
--- NOTE | 2018-10-10 06:41 | Pulmonary Procedures ---
Pulmonary Procedures Date of Procedure Date of Service: Oct 10, 2018 Bronch Bronchoscopy with bilateral bronchial washes multiple passes made to lavage/suction mucous plugs out. Preop DX PNA with mucous plugs Postop DX: same Complications: none After informed consent obtained and formal time out pt was sedated using Fentanyl and Versed. Bronchoscope was advanced through the nare and vocal cords. 1% lidocaine was used to anesthetize vocal cords, epiglottis, vamshi, and left/right main stem bronchus. An anatomical tour was undertaken down to the segmental bronchi bilaterally. No endobronchial lesions noted. Bronchoscopy with bilateral bronchial washes multiple passes made to lavage/suction mucous plugs out. were obtained. Pt tolerated procedure well. No complications noted. Stat CXR is pending. SOULEYMANE ABBOTT DO Oct 10, 2018 06:40
--- NOTE | 2018-10-10 07:14 | Diagnostic Imaging Report ---
INDICATION: Bronchoscopy. Comparison made with prior examination 10/10/2018. FINDINGS: Heart size is normal. There is bilateral airspace disease. Lines and tubes are in satisfactory position. There is no pleural effusion or pneumothorax. IMPRESSION: Bilateral airspace disease. Some underlying central pulmonary venous congestion or failure cannot be excluded. Recommend clinical correlation. Dictated by: Dictated on workstation # [id number]
--- NOTE | 2018-10-10 08:02 | Pulmonary Progress Note ---
Subjective Time Seen by a Provider: 08:00 Subjective/Events-last exam PT is sedated on vent. Sepsis Event Evaluation Height, Weight, BMI Height: 5'10.00" Weight: 262lbs. 3.2oz. 118.334868pq; 37.6 BMI Method:Estimated Focused Exam Lactate Level 10/07/18 10:05: Lactic Acid Level 1.11 Exam Exam Vital Signs Date Time Temp Pulse Resp B/P (MAP) Pulse Ox O2 Delivery O2 Flow Rate FiO2 10/10/18 07:09 70 26 98 100 10/10/18 06:01 97.1 10/10/18 06:00 66 25 108/37 (60) 93 Mechanical Ventilator 60.00 10/10/18 05:00 69 25 94/34 (54) 93 Mechanical Ventilator 60.00 10/10/18 04:52 69 26 93 60 10/10/18 04:00 72 26 128/43 (71) 92 Mechanical Ventilator 60.00 10/10/18 03:32 97.2 Mechanical Ventilator 10/10/18 03:00 73 25 124/38 (66) 92 Mechanical Ventilator 60.00 10/10/18 02:12 70 26 93 60 10/10/18 02:00 62 30 131/48 (75) 88 Mechanical Ventilator 60.00 10/10/18 01:00 67 10/10/18 01:00 67 25 118/40 (66) 93 Mechanical Ventilator 60.00 10/10/18 00:54 Mechanical Ventilator 10/10/18 00:22 68 26 93 60 10/10/18 00:09 65 26 116/40 (65) 93 Mechanical Ventilator 60.00 10/09/18 23:00 62 25 112/43 (66) 93 Mechanical Ventilator 60.00 10/09/18 22:51 65 26 93 60 10/09/18 22:21 Mechanical Ventilator 10/09/18 22:00 73 25 135/44 (74) 94 Mechanical Ventilator 60.00 10/09/18 21:00 73 26 153/46 (81) 93 Mechanical Ventilator 60.00 10/09/18 20:06 87 26 93 60 10/09/18 20:00 Mechanical Ventilator 60 10/09/18 20:00 89 25 182/52 (95) 93 Mechanical Ventilator 60.00 10/09/18 19:44 96.6 81 17 154/44 94 Mechanical Ventilator 60.00 10/09/18 19:30 96.8 10/09/18 19:00 80 10/09/18 19:00 80 26 140/42 (74) 93 Mechanical Ventilator 60.00 10/09/18 18:40 78 26 94 60 10/09/18 18:00 84 26 145/41 (75) 93 Mechanical Ventilator 60.00 10/09/18 17:00 85 26 153/43 (79) 91 Mechanical Ventilator 60.00 10/09/18 16:35 83 10/09/18 16:00 78 25 134/40 (71) 92 Mechanical Ventilator 60.00 10/09/18 15:40 97.6 10/09/18 15:00 76 25 111/33 (59) 92 Mechanical Ventilator 60.00 10/09/18 14:29 72 26 93 60 10/09/18 14:00 75 20 135/38 (70) 91 Mechanical Ventilator 60.00 10/09/18 13:35 74 26 115/52 91 Mechanical Ventilator 60.00 10/09/18 13:00 79 10/09/18 13:00 79 26 113/56 (75) 90 Mechanical Ventilator 60.00 10/09/18 12:00 78 26 119/64 (82) 91 Mechanical Ventilator 60.00 10/09/18 11:56 Mechanical Ventilator 60.00 10/09/18 11:35 98.1 10/09/18 10:55 73 26 92 55 10/09/18 10:46 25 121/67 91 Mechanical Ventilator 60.00 10/09/18 10:00 70 26 114/68 (83) 92 Mechanical Ventilator 60.00 10/09/18 09:00 68 25 88/49 (62) 93 Mechanical Ventilator 60.00 10/09/18 08:00 Mechanical Ventilator 60.00 92 10/09/18 08:00 86 26 130/62 (84) 96 Mechanical Ventilator 60.00 I & O 10/10/18 07:00 Intake Total 2850 ml Output Total 1240 ml Balance 1610 ml Height & Weight Height: 5'10.00" Weight: 262lbs. 3.2oz. 118.374679av; 37.6 BMI Method:Estimated General Appearance: Other (sedated on vent) HEENT: PERRL/EOMI Neck: Non Tender, Supple Respiratory: Chest Non Tender, Crackles, Decreased Breath Sounds Cardiovascular: Regular Rate, Rhythm Capillary Refill: Less Than 3 Seconds Gastrointestinal: normal bowel sounds, non tender, soft Extremity: Normal Capillary Refill, Normal Range of Motion, Non Tender, No Calf Tenderness Neurologic/Psychiatric: Alert, Oriented x3, No Motor/Sensory Deficits, Normal Mood/Affect Skin: Warm/Dry Lymphatic: No Adenopathy Results Lab Laboratory Tests 10/09/18 03:06 10/10/18 03:08 Assessment/Plan Assessment/Plan Acute respiratory failure with ARDS Pa02/Fi02 = 109.2 -Echocardiogram -Cont vent -Not ready to wean yet -Add precedex and decrease Diprivan and fentanyl -Will do bronchoscopy this AM secondary to copious amounts of sputum Bilateral PNA -Rocephin and azithromycin 10/07 -Improving leukocytosis. 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
[2018-10-10] MEDS: DEXMEDETOMIDINE INJECTION 1,000 MCG in NS (IVPB) 250 ML IV SCH ×3 (08:08→23:26)
[2018-10-10] MEDS: cefTRIAXone 1,000 MG/SWFI 10 ML IV PUSH IV SCH ×2 (08:09)
[2018-10-10] MEDS: PANTOPRAZOLE 40 MG (PROTONIX) VIAL IV SCH (08:09)
[2018-10-10] MEDS: AZITHROMYCIN 250 MG TAB (ZITHROMAX) PO SCH (08:09)
[2018-10-10] MEDS: meTOprolol TARTRATE 50 MG (LOPRESSOR) TAB PO SCH ×2 (08:16→21:41)
--- NOTE | 2018-10-10 09:42 | Diagnostic Imaging Report ---
INDICATION: Respiratory distress. Comparison made with prior examination from 10/09/2018 FINDINGS: The heart size is normal. There is bilateral airspace disease. There is no pleural effusion or pneumothorax. ET and NG tubes are in satisfactory position. IMPRESSION: Bilateral airspace disease. This is likely a combination of pneumonia and failure. Recommend clinical correlation. Dictated by: Dictated on workstation # [id number]
--- NOTE | 2018-10-10 09:49 | Progress Note - Urology ---
Progress Note-Urology Progress Notes/Assess & Plan Progress/Assessment & Plan STARTED ON HEPARIN. URINE CLEAR YELLOW Final Diagnosis GROSS HEMATURIA (RESOLVED) HERNANDEZ DANIELSON MD Oct 10, 2018 09:49
[2018-10-10] MEDS: HEParin DRIP 25000 UNIT/500ML 500 ML IV SCH (12:35)
[2018-10-11] VITALS (33 sets, daily range): BP systolic 119–156; BP diastolic 48–55
[2018-10-11] MEDS: HEParin 1000 UNIT/ML (10ML VIAL) FOR BOLUS IV SCH (02:20)
[2018-10-11] MEDS: PROPOFOL DRIP (ICU) 100 ML IV SCH ×7 (02:28→20:43)
[2018-10-11] MEDS: RT-ALBUTEROL/IPRATROPIUM 3 ML (DUONEB) VIAL INH SCH ×6 (02:29→22:27)
[2018-10-11 02:41] LABS: BASOPHILS % (AUTO) 0 % (0-10); EOSINOPHILS # (AUTO) 0.4 10^3/uL (0.0-0.3); EOSINOPHILS % (AUTO) 4 % (0-10); HEMATOCRIT 34 % (40-54); HEMOGLOBIN 11.4 G/DL (13.3-17.7); LYMPHOCYTES # (AUTO) 0.8 X 10^3 (1.0-4.0); LYMPHOCYTES % (AUTO) 8 % (12-44); MEAN CORPUSCULAR HEMOGLOBIN 30 PG (25-34); MEAN CORPUSCULAR HGB CONC 33 G/DL (32-36); MEAN CORPUSCULAR VOLUME 89 FL (80-99); MONOCYTES # (AUTO) 0.7 X 10^3 (0.0-1.0); MONOCYTES % (AUTO) 7 % (0-12); NEUTROPHILS # (AUTO) 7.7 X 10^3 (1.8-7.8); NEUTROPHILS % (AUTO) 81 % (42-75); PLATELET COUNT 219 10^3/uL (130-400); WHITE BLOOD COUNT 9.5 10^3/uL (4.3-11.0)
[2018-10-11 02:42] LABS: ABG BASE EXCESS -5.2 MMOL/L (-2.5-2.5); ABG OXYGEN SATURATION 96 % (94-100); ABG PCO2 38 MMHG (35-45); ABG PO2 81 MMHG (79-93); ABG TCO2 20.9 MMOL/L (21.0-31.0)
[2018-10-11 02:47] LABS: ABG PH 7.33 (7.37-7.43); ALLENS TEST POSITIVE; INSPIRED O2 80% VENT; PATIENT TEMP 97.8; VENTILATOR YES
[2018-10-11 02:58] LABS: INR 1.6 (0.8-1.4); PROTHROMBIN TIME PATIENT 19.3 SEC (12.2-14.7)
[2018-10-11 03:05] LABS: CALCIUM 8.6 MG/DL (8.5-10.1); CREATININE SERUM 1.74 MG/DL (0.60-1.30); MAGNESIUM 1.9 MG/DL (1.8-2.4); PHOSPHORUS 3.6 MG/DL (2.3-4.7); POTASSIUM 3.8 MMOL/L (3.6-5.0)
[2018-10-11] MEDS: KCL 20 MEQ TAB (K-DUR) PO SCH (05:20)
[2018-10-11] MEDS: POTASSIUM CL 10MEQ/50ML IVPB 50 ML IV SCH (05:20)
[2018-10-11] MEDS: MAGNESIUM 1 GM/100 ML IVPB 100 ML IV SCH (05:20)
[2018-10-11] MEDS ORDERED: NS (IVPB) 50 ML ONE ×2 (05:22→06:51)
[2018-10-11] MEDS: inSUlin ASPART (NovoLOG) 1 UNIT/0.01 ML (CHARGE PER UNIT) SC PRN (05:39)
[2018-10-11] MEDS: LACTATED RINGERS 1,000 ML IV SCH (05:40)
[2018-10-11] MEDS: HEParin DRIP 25000 UNIT/500ML 500 ML IV SCH ×2 (05:40→20:43)
[2018-10-11] MEDS: DEXMEDETOMIDINE INJECTION 1,000 MCG in NS (IVPB) 250 ML IV SCH ×5 (05:41→17:23)
--- NOTE | 2018-10-11 06:19 | Pulmonary Progress Note ---
Subjective Time Seen by a Provider: 05:15 Subjective/Events-last exam Pt sedated on vent. Sepsis Event Evaluation Height, Weight, BMI Height: 5'10.00" Weight: 329lbs. 0.4oz. 149.305599ei; 37.6 BMI Method:Estimated Exam Exam Vital Signs Date Time Temp Pulse Resp B/P (MAP) Pulse Ox O2 Delivery O2 Flow Rate FiO2 10/11/18 06:00 76 20 147/54 (85) 92 Mechanical Ventilator 70.00 10/11/18 05:38 Mechanical Ventilator 10/11/18 05:00 70 15 140/53 (82) 91 Mechanical Ventilator 70.00 10/11/18 04:00 Mechanical Ventilator 70 10/11/18 04:00 70 26 136/53 (80) 92 Mechanical Ventilator 70.00 10/11/18 03:00 70 26 136/53 (80) 92 Mechanical Ventilator 70.00 10/11/18 02:33 Mechanical Ventilator 70.00 10/11/18 02:29 71 26 94 80 10/11/18 02:28 97.8 Mechanical Ventilator 10/11/18 02:00 70 26 136/53 (80) 92 Mechanical Ventilator 80.00 10/11/18 01:00 70 25 131/52 (78) 92 Mechanical Ventilator 80.00 10/11/18 01:00 70 10/11/18 00:06 65 26 93 80 10/11/18 00:00 Mechanical Ventilator 80 10/11/18 00:00 66 25 147/55 (85) 93 Mechanical Ventilator 80.00 10/10/18 23:00 67 26 138/53 (81) 94 Mechanical Ventilator 80.00 10/10/18 22:13 Mechanical Ventilator 80.00 10/10/18 22:09 67 26 95 90 10/10/18 22:08 Mechanical Ventilator 10/10/18 22:00 69 25 138/52 (80) 95 Mechanical Ventilator 90.00 10/10/18 21:00 72 25 150/53 (85) 95 Mechanical Ventilator 90.00 10/10/18 20:16 71 26 95 90 10/10/18 20:00 97.6 10/10/18 20:00 Mechanical Ventilator 90 10/10/18 20:00 74 26 145/49 (81) 97 Mechanical Ventilator 90.00 10/10/18 19:30 97.6 71 26 153/58 98 Mechanical Ventilator 90.00 10/10/18 19:00 77 10/10/18 19:00 77 25 150/56 (87) 97 Mechanical Ventilator 90.00 10/10/18 18:29 76 26 97 100 10/10/18 17:00 71 26 173/67 (102) 93 Mechanical Ventilator 100.00 10/10/18 16:00 68 26 135/61 (85) 95 Mechanical Ventilator 60.00 10/10/18 16:00 96.6 10/10/18 15:00 70 26 137/57 (83) 95 Mechanical Ventilator 60.00 10/10/18 14:21 70 26 96 100 10/10/18 14:00 68 26 133/55 (81) 92 Mechanical Ventilator 60.00 10/10/18 13:01 73 10/10/18 13:00 72 26 136/54 (81) 92 Mechanical Ventilator 60.00 10/10/18 12:28 75 10/10/18 12:00 77 25 137/53 (81) 92 Mechanical Ventilator 60.00 10/10/18 12:00 97.1 10/10/18 11:00 71 25 123/58 (79) 96 Mechanical Ventilator 60.00 10/10/18 10:11 68 26 94 100 10/10/18 10:00 66 25 129/57 (81) 95 Mechanical Ventilator 60.00 10/10/18 09:00 66 25 124/54 (77) 95 Mechanical Ventilator 60.00 10/10/18 08:22 97.0 66 10/10/18 08:00 Mechanical Ventilator 60 10/10/18 08:00 97.0 10/10/18 08:00 67 25 98/34 (55) 98 Mechanical Ventilator 60.00 10/10/18 07:09 70 26 98 100 10/10/18 07:00 71 25 104/36 (58) 98 Mechanical Ventilator 60.00 10/10/18 07:00 71 I & O 10/11/18 07:00 Intake Total 1640 ml Output Total 2650 ml Balance -1010 ml Height & Weight Height: 5'10.00" Weight: 329lbs. 0.4oz. 149.782559cm; 37.6 BMI Method:Estimated General Appearance: Other (sedated on vent) HEENT: PERRL/EOMI Neck: Non Tender, Supple Respiratory: Chest Non Tender, Crackles, Decreased Breath Sounds Cardiovascular: Regular Rate, Rhythm Capillary Refill: Less Than 3 Seconds Gastrointestinal: normal bowel sounds, non tender, soft Extremity: Normal Capillary Refill, Normal Range of Motion, Non Tender, No Calf Tenderness Neurologic/Psychiatric: Alert, Oriented x3, No Motor/Sensory Deficits, Normal Mood/Affect Skin: Warm/Dry Lymphatic: No Adenopathy Results Lab Laboratory Tests 10/10/18 03:08 10/11/18 02:22 Assessment/Plan Assessment/Plan Acute respiratory failure with ARDS Pa02/Fi02 = 109.2 -Echocardiogram -Cont vent -Not ready to wean yet -Add precedex and decrease Diprivan and fentanyl -Will do bronchoscopy this AM secondary to copious amounts of sputum Bilateral PNA -Rocephin and azithromycin 10/07 -Improving leukocytosis. 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
--- NOTE | 2018-10-11 06:22 | NUR ---
Patients O2 was at 70%; RT decreased O2 to 50% and patient desatted so RT increased O2 to 55% and O2 went up to where O2 order is to keep sat between 90-95%.
--- NOTE | 2018-10-11 06:53 | Diagnostic Imaging Report ---
EXAMINATION: Portable erect AP chest at 3:37 AM INDICATION: Respiratory distress The cardiomegaly and the bilateral alveolar/interstitial pulmonary infiltrates seen on the prior study of 10/10/18 are again evident. The density in the right midlung may be somewhat greater than on the prior study. The lung apices remain clear. The mediastinum is not widened. The osseous structures are intact. The supportive tubes and lines seem unchanged in position. IMPRESSION: The overall appearance of the chest has not changed significantly since the prior exam. However, the density in the right midlung may be somewhat greater. A followup exam would be recommended for continued evaluation. Dictated by: Dictated on workstation # [id number]
[2018-10-11] MEDS: cefTRIAXone 1,000 MG/SWFI 10 ML IV PUSH IV SCH ×2 (07:56)
[2018-10-11] MEDS: FUROSEMIDE 40 MG/4 ML INJ (LASIX) IVP SCH ×2 (07:56→17:23)
[2018-10-11] MEDS: PANTOPRAZOLE 40 MG (PROTONIX) VIAL IV SCH (07:57)
[2018-10-11] MEDS: meTOprolol TARTRATE 50 MG (LOPRESSOR) TAB PO SCH ×2 (07:57→21:27)
[2018-10-11] MEDS: AZITHROMYCIN 250 MG TAB (ZITHROMAX) PO SCH (07:57)
--- NOTE | 2018-10-11 08:53 | Progress Note - Hospitalist ---
Subjective HPI/CC On Admission Date Seen by Provider: Oct 10, 2018 Time Seen by Provider: 07:30 Subjective/Events-last exam Late entry from 10/10/18 Patient intubated and sedated. Granddaughter at bedside and updated on situation. Underwent bronchoscopy this AM with hope to start weaning vent tomorrow. Focused Exam Lactate Level 10/11/18 06:30: Lactic Acid Level 1.02 Lactic Acid Level Objective Exam Vital Signs Vital Signs Date Time Temp Pulse Resp B/P (MAP) Pulse Ox O2 Delivery O2 Flow Rate FiO2 10/11/18 15:06 61 26 93 50 10/11/18 15:00 127/49 (75) Mechanical Ventilator 21.00 10/11/18 12:00 98.0 Capillary Refill : Less Than 3 Seconds General Appearance: Other (sedated on vent) Respiratory: Rhonci, Other (on vent) Cardiovascular: Regular Rate, Rhythm, No Murmur Gastrointestinal: Non Tender, Soft, Distended Genital/Rectal: Other (elder in place with clear yellow urine) Extremity: Pedal Edema Neurologic/Psychiatric: Other (sedated) Results/Procedures Lab Laboratory Tests 10/11/18 02:22 Patient resulted labs reviewed. Assessment/Plan Assessment and Plan Assess & Plan/Chief Complaint Acute respiratory failure due to Bilateral PNA and ARDS s/p bronch this AM Continue on IV abx Plan to start vent weaning tomorrow Continue abx echo ordered GALILEO Creatinine stable Continue IVF Hematuria Cytoscopy done by Dr Ojeda No obvious mass noted expected hematuria at this point due to heparin gtt and recent cystoscopy Factor V Leiden disease and history of blood clots with current IVC filter Heparin gtt Anemia down form 13 on arrival Relatively stable and likely dilutional Hypokalemia replaced per protocol HTN continue metoprolool Clinical Quality Measures DVT/VTE Risk/Contraindication: Risk Factor Score Per Nursin RFS Level Per Nursing on Admit: 4+=Very High MAGNUS VEGA MD Oct 11, 2018 08:53
--- NOTE | 2018-10-11 08:58 | Progress Note - Hospitalist ---
Subjective HPI/CC On Admission Date Seen by Provider: Oct 11, 2018 Time Seen by Provider: 08:53 Subjective/Events-last exam Pt remains intubated and sedated. Family member at bedside expresses concern about mold found at patient's house in the basement and believes that to be why he is ill. Focused Exam Lactate Level 10/11/18 06:30: Lactic Acid Level 1.02 Lactic Acid Level Objective Exam Vital Signs Vital Signs Date Time Temp Pulse Resp B/P (MAP) Pulse Ox O2 Delivery O2 Flow Rate FiO2 10/11/18 15:06 61 26 93 50 10/11/18 15:00 127/49 (75) Mechanical Ventilator 21.00 10/11/18 12:00 98.0 Capillary Refill : Less Than 3 Seconds General Appearance: Chronically ill, Other (sedated on vent) Respiratory: Rhonci, Other (on vent) Cardiovascular: Regular Rate, Rhythm, No Murmur Gastrointestinal: Normal Bowel Sounds, Non Tender, Soft Genital/Rectal: Other (elder in place) Neurologic/Psychiatric: Other (sedated) Results/Procedures Lab Laboratory Tests 10/11/18 02:22 Patient resulted labs reviewed. Assessment/Plan Assessment and Plan Assess & Plan/Chief Complaint Acute respiratory failure due to Bilateral PNA and ARDS s/p bronch 10/10 Continue on IV abx Vent weaning per Dr Collier Maintain sedation- triglycerides up slightly, continue propofol for now but may need to switch if not level continues in that trend Continue abx echo shows severe tricuspid regurg, EF 70%, and grade 2 diastolic dysfunction Lasix ordered GALILEO Creatinine stable Hematuria Cytoscopy done by Dr Ojeda No obvious mass noted expected hematuria at this point due to heparin gtt and recent cystoscopy Factor V Leiden disease and history of blood clots with current IVC filter Heparin gtt Anemia down form 13 on arrival but stable Likely iatrogenic and dilutional monitor closely given on heparin gtt Hypokalemia replaced per protocol HTN continue metoprolol Critical Care Critically Ill Patient Clinical Quality Measures DVT/VTE Risk/Contraindication: Risk Factor Score Per Nursin RFS Level Per Nursing on Admit: 4+=Very High MAGNUS VEGA MD Oct 11, 2018 08:58
[2018-10-11] MEDS: fentaNYL INJECTION 1,250 MCG in NS (IVPB) 250 ML IV SCH (13:31)
--- NOTE | 2018-10-11 13:51 | Progress Note - Urology ---
Progress Note-Urology Progress Notes/Assess & Plan Progress/Assessment & Plan STILL ON VENTILATOR. URINE TRAMAINE CLEAR. KIDNEY FUNCTIONS STABLE Final Diagnosis GROSS HEMATURIA HERNANDEZ DANIELSON MD Oct 11, 2018 13:51
[2018-10-12] VITALS (26 sets, daily range): BP systolic 120–160; BP diastolic 48–78
[2018-10-12] MEDS: PROPOFOL DRIP (ICU) 100 ML IV SCH ×7 (00:08→21:05)
[2018-10-12] MEDS: RT-ALBUTEROL/IPRATROPIUM 3 ML (DUONEB) VIAL INH SCH ×6 (02:04→22:13)
[2018-10-12] MEDS: DEXMEDETOMIDINE INJECTION 1,000 MCG in NS (IVPB) 250 ML IV SCH ×4 (02:29→18:14)
[2018-10-12 03:00] LABS: ABG BASE EXCESS -5.2 MMOL/L (-2.5-2.5); ABG OXYGEN SATURATION 95 % (94-100); ABG PCO2 36 MMHG (35-45); ABG PH 7.35 (7.37-7.43); ABG PO2 72 MMHG (79-93); ABG TCO2 20.7 MMOL/L (21.0-31.0); BASOPHILS # (AUTO) 0.1 10^3/uL (0.0-0.1); BASOPHILS % (AUTO) 1 % (0-10); EOSINOPHILS # (AUTO) 0.3 10^3/uL (0.0-0.3); EOSINOPHILS % (AUTO) 3 % (0-10); HEMATOCRIT 34 % (40-54); HEMOGLOBIN 10.9 G/DL (13.3-17.7); LYMPHOCYTES # (AUTO) 1.2 X 10^3 (1.0-4.0); LYMPHOCYTES % (AUTO) 12 % (12-44); MEAN CORPUSCULAR HEMOGLOBIN 29 PG (25-34); MEAN CORPUSCULAR HGB CONC 33 G/DL (32-36); MEAN CORPUSCULAR VOLUME 89 FL (80-99); MEAN PLATELET VOLUME 10.6 FL (7.4-10.4); MONOCYTES % (AUTO) 9 % (0-12); NEUTROPHILS % (AUTO) 76 % (42-75); PLATELET COUNT 233 10^3/uL (130-400); RED CELL DISTRIBUTION WIDTH 15.4 % (10.0-14.5); WHITE BLOOD COUNT 10.5 10^3/uL (4.3-11.0)
[2018-10-12 03:03] LABS: ALLENS TEST POSITIVE; INSPIRED O2 50% VENT; PATIENT TEMP 97.6; VENTILATOR YES
[2018-10-12 03:12] LABS: INR 1.3 (0.8-1.4); PROTHROMBIN TIME PATIENT 16.9 SEC (12.2-14.7)
[2018-10-12 03:19] LABS: CALCIUM 8.7 MG/DL (8.5-10.1); CREATININE SERUM 2.01 MG/DL (0.60-1.30); MAGNESIUM 1.8 MG/DL (1.8-2.4); POTASSIUM 3.7 MMOL/L (3.6-5.0)
[2018-10-12] MEDS: MAGNESIUM 1 GM/100 ML IVPB 100 ML IV SCH (03:52)
[2018-10-12] MEDS: POTASSIUM CL 10MEQ/50ML IVPB 50 ML IV SCH ×5 (03:52→09:11)
[2018-10-12] MEDS: KCL 20 MEQ TAB (K-DUR) PO SCH (03:53)
--- NOTE | 2018-10-12 05:21 | Pulmonary Progress Note ---
Subjective Time Seen by a Provider: 05:27 Subjective/Events-last exam Pt is sedated on vent. Sepsis Event Evaluation Height, Weight, BMI Height: 5'10.00" Weight: 329lbs. 0.4oz. 149.185189qp; 37.6 BMI Method:Estimated Focused Exam Lactate Level 10/11/18 06:30: Lactic Acid Level 1.02 Exam Exam Vital Signs Date Time Temp Pulse Resp B/P (MAP) Pulse Ox O2 Delivery O2 Flow Rate FiO2 10/12/18 05:00 64 26 126/48 (74) 93 Mechanical Ventilator 50.00 10/12/18 04:00 63 25 129/50 (76) 92 Mechanical Ventilator 50.00 10/12/18 03:52 97.9 64 25 130/51 93 Mechanical Ventilator 50.00 10/12/18 03:00 64 25 130/51 (77) 93 Mechanical Ventilator 50.00 10/12/18 02:04 61 26 92 50 10/12/18 02:00 62 25 128/49 (75) 93 Mechanical Ventilator 50.00 10/12/18 01:00 64 25 130/49 (76) 92 Mechanical Ventilator 50.00 10/12/18 01:00 64 10/12/18 00:08 97.9 64 25 130/49 92 Mechanical Ventilator 50.00 10/12/18 00:05 64 25 130/49 (76) 92 Mechanical Ventilator 50.00 10/12/18 00:00 Mechanical Ventilator 50 10/11/18 23:00 67 26 133/49 (77) 92 Mechanical Ventilator 50.00 10/11/18 22:28 66 26 92 50 10/11/18 22:00 67 26 132/49 (76) 92 Mechanical Ventilator 50.00 10/11/18 21:34 61 25 130/50 (76) 91 Mechanical Ventilator 50.00 10/11/18 20:43 97.9 71 24 137/52 93 Mechanical Ventilator 50.00 10/11/18 20:00 65 26 129/50 (76) 90 Mechanical Ventilator 50.00 10/11/18 20:00 Mechanical Ventilator 50 10/11/18 19:50 71 10/11/18 19:26 97.9 64 24 137/52 (80) 93 Mechanical Ventilator 50.00 10/11/18 18:39 67 26 93 50 10/11/18 18:00 66 25 136/53 (80) 93 Mechanical Ventilator 50.00 10/11/18 17:23 61 10/11/18 17:08 134/50 10/11/18 17:00 68 26 133/50 (77) 93 Mechanical Ventilator 50.00 10/11/18 16:00 Mechanical Ventilator 10/11/18 16:00 69 27 135/50 (78) 93 Mechanical Ventilator 50.00 10/11/18 16:00 96.6 10/11/18 15:06 61 26 93 50 10/11/18 15:00 62 26 127/49 (75) 93 Mechanical Ventilator 21.00 10/11/18 14:00 65 25 123/49 (73) 94 Mechanical Ventilator 21.00 10/11/18 13:35 66 10/11/18 13:00 67 10/11/18 13:00 67 25 130/49 (76) 92 Mechanical Ventilator 21.00 10/11/18 12:06 66 26 93 55 10/11/18 12:00 68 25 128/49 (75) 93 Mechanical Ventilator 21.00 10/11/18 12:00 98.0 10/11/18 12:00 Mechanical Ventilator 10/11/18 11:00 69 25 129/51 (77) 93 Mechanical Ventilator 21.00 10/11/18 10:20 68 26 91 55 10/11/18 10:00 68 16 129/51 (77) 91 Mechanical Ventilator 55.00 10/11/18 09:00 69 20 131/52 (78) 91 Mechanical Ventilator 55.00 10/11/18 08:50 68 26 91 55 10/11/18 08:00 70 30 127/48 (74) 92 Mechanical Ventilator 55.00 10/11/18 08:00 97.7 10/11/18 08:00 Mechanical Ventilator 55 10/11/18 07:57 97.7 10/11/18 07:00 77 10/11/18 07:00 80 34 156/55 (88) 90 Mechanical Ventilator 55.00 10/11/18 06:34 Mechanical Ventilator 55.00 10/11/18 06:10 71 26 93 70 10/11/18 06:00 76 20 147/54 (85) 92 Mechanical Ventilator 70.00 10/11/18 05:38 Mechanical Ventilator I & O 10/12/18 07:00 Intake Total 500 ml Output Total 2475 ml Balance -1975 ml Height & Weight Height: 5'10.00" Weight: 329lbs. 0.4oz. 149.334680ut; 37.6 BMI Method:Estimated General Appearance: Other (sedated on vent) HEENT: PERRL/EOMI Neck: Non Tender, Supple Respiratory: Chest Non Tender, Crackles, Decreased Breath Sounds Cardiovascular: Regular Rate, Rhythm Capillary Refill: Less Than 3 Seconds Gastrointestinal: normal bowel sounds, non tender, soft Extremity: Normal Capillary Refill, Normal Range of Motion, Non Tender, No Calf Tenderness Neurologic/Psychiatric: Alert, Oriented x3, No Motor/Sensory Deficits, Normal Mood/Affect Skin: Warm/Dry Lymphatic: No Adenopathy Results Lab Laboratory Tests 10/11/18 02:22 10/12/18 02:55 Assessment/Plan Assessment/Plan Acute respiratory failure with ARDS Pa02/Fi02 = 109.2 -Echocardiogram -Start TF -Cont vent -Not ready to wean yet -Add precedex and decrease Diprivan and fentanyl Bilateral PNA -Rocephin and azithromycin 10/07 -Improving leukocytosis. 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
[2018-10-12] MEDS ORDERED: SODIUM BICARB 8.4% 50 MEQ/50 ML VIAL IV ONE (05:30)
--- NOTE | 2018-10-12 08:00 | Diagnostic Imaging Report ---
Indication: Respiratory distress. Comparison made with prior examination of 10/11/2018. Findings: There is cardiomegaly. There is moderate central pulmonary venous congestion. No pleural effusion or pneumothorax. Lines and tubes are in satisfactory position. Impression: Cardiomegaly and moderate central pulmonary venous congestion. Superimposed pneumonia certainly cannot be excluded. Recommend clinical correlation. Dictated by: Dictated on workstation # [id number]
[2018-10-12] MEDS: PANTOPRAZOLE 40 MG (PROTONIX) VIAL IV SCH (08:57)
[2018-10-12] MEDS: meTOprolol TARTRATE 50 MG (LOPRESSOR) TAB PO SCH ×2 (08:57→20:53)
--- NOTE | 2018-10-12 10:25 | Progress Note - Urology ---
Progress Note-Urology Progress Notes/Assess & Plan Progress/Assessment & Plan STATUS QUO. URINE CLEAR YELLOW. CREATININE UP TO 2. RECHECK TOMORROW Final Diagnosis GROSS HEMATURIA HERNANDEZ DANIELSON MD Oct 12, 2018 10:25
[2018-10-12] MEDS: HEParin DRIP 25000 UNIT/500ML 500 ML IV SCH (11:38)
--- NOTE | 2018-10-12 12:26 | Progress Note ---
Subjective Subjective Date Seen by Provider: Oct 12, 2018 Time Seen by Provider: 12:20 78 yo M with bilateral pneumonia that progressed to ARDS. Still intubated- working on weaning. Cr 2.0 monitoring hgb stable Review of Systems ROS Unable to Obtain: intubated Objective Exam Vital Signs Vital Signs Date Time Temp Pulse Resp B/P (MAP) Pulse Ox O2 Delivery O2 Flow Rate FiO2 10/12/18 11:00 68 26 127/51 (76) 94 Mechanical Ventilator 50.00 10/12/18 10:41 66 26 93 50 10/12/18 10:00 66 26 128/50 (76) 94 Mechanical Ventilator 50.00 10/12/18 09:00 69 25 132/51 (78) 94 Mechanical Ventilator 50.00 10/12/18 08:57 66 10/12/18 08:00 Mechanical Ventilator 50 10/12/18 08:00 97.2 10/12/18 08:00 67 25 132/50 (77) 94 Mechanical Ventilator 50.00 10/12/18 07:00 71 10/12/18 07:00 65 20 129/50 (76) 93 Mechanical Ventilator 50.00 10/12/18 06:25 64 26 93 50 10/12/18 06:00 65 26 128/49 (75) 93 Mechanical Ventilator 50.00 10/12/18 05:00 64 26 126/48 (74) 93 Mechanical Ventilator 50.00 10/12/18 04:00 Mechanical Ventilator 50 10/12/18 04:00 63 25 129/50 (76) 92 Mechanical Ventilator 50.00 10/12/18 03:52 97.9 64 25 130/51 93 Mechanical Ventilator 50.00 10/12/18 03:00 64 25 130/51 (77) 93 Mechanical Ventilator 50.00 10/12/18 02:04 61 26 92 50 10/12/18 02:00 62 25 128/49 (75) 93 Mechanical Ventilator 50.00 10/12/18 01:00 64 25 130/49 (76) 92 Mechanical Ventilator 50.00 10/12/18 01:00 64 10/12/18 00:08 97.9 64 25 130/49 92 Mechanical Ventilator 50.00 10/12/18 00:05 64 25 130/49 (76) 92 Mechanical Ventilator 50.00 10/12/18 00:00 Mechanical Ventilator 50 10/11/18 23:00 67 26 133/49 (77) 92 Mechanical Ventilator 50.00 10/11/18 22:28 66 26 92 50 10/11/18 22:00 67 26 132/49 (76) 92 Mechanical Ventilator 50.00 10/11/18 21:34 61 25 130/50 (76) 91 Mechanical Ventilator 50.00 10/11/18 20:43 97.9 71 24 137/52 93 Mechanical Ventilator 50.00 10/11/18 20:00 65 26 129/50 (76) 90 Mechanical Ventilator 50.00 10/11/18 20:00 Mechanical Ventilator 50 10/11/18 19:50 71 10/11/18 19:26 97.9 64 24 137/52 (80) 93 Mechanical Ventilator 50.00 10/11/18 18:39 67 26 93 50 10/11/18 18:00 66 25 136/53 (80) 93 Mechanical Ventilator 50.00 10/11/18 17:23 61 10/11/18 17:08 134/50 10/11/18 17:00 68 26 133/50 (77) 93 Mechanical Ventilator 50.00 10/11/18 16:00 Mechanical Ventilator 10/11/18 16:00 69 27 135/50 (78) 93 Mechanical Ventilator 50.00 10/11/18 16:00 96.6 10/11/18 15:06 61 26 93 50 10/11/18 15:00 62 26 127/49 (75) 93 Mechanical Ventilator 21.00 10/11/18 14:00 65 25 123/49 (73) 94 Mechanical Ventilator 21.00 10/11/18 13:35 66 10/11/18 13:00 67 10/11/18 13:00 67 25 130/49 (76) 92 Mechanical Ventilator 21.00 I & O 10/12/18 07:00 Intake Total 1300 ml Output Total 2725 ml Balance -1425 ml General Appearance: Mild Distress, Other (sedated on vent) Eyes: Bilateral Eye Normal Inspection, Bilateral Eye PERRL, Bilateral Eye EOMI HEENT: PERRL/EOMI Neck: Non Tender, Supple Respiratory: Chest Non Tender, Decreased Breath Sounds, Rhonci Cardiovascular: Regular Rate, Rhythm Gastrointestinal: Normal Bowel Sounds, Non Tender, Soft Genital/Rectal: Other (elder in place) Extremity: Normal Capillary Refill, Non Tender, No Calf Tenderness Skin: Warm/Dry Lymphatic: No Adenopathy Results Lab Laboratory Tests 10/11/18 18:16: Glucometer 181H 10/11/18 20:30: Activated Partial Thromboplast Time 68H 10/12/18 02:55: White Blood Count 10.5, Red Blood Count 3.76L, Hemoglobin 10.9L, Hematocrit 34L, Mean Corpuscular Volume 89, Mean Corpuscular Hemoglobin 29, Mean Corpuscular Hemoglobin Concent 33, Red Cell Distribution Width 15.4H, Platelet Count 233, Mean Platelet Volume 10.6H, Neutrophils (%) (Auto) 76H, Lymphocytes (%) (Auto) 12, Monocytes (%) (Auto) 9, Eosinophils (%) (Auto) 3, Basophils (%) (Auto) 1, Neutrophils # (Auto) 8.0H, Lymphocytes # (Auto) 1.2, Monocytes # (Auto) 1.0, Eosinophils # (Auto) 0.3, Basophils # (Auto) 0.1, Prothrombin Time 16.9H, INR Comment 1.3, Blood Gas Puncture Site RIGHT ART LINE, Blood Gas Patient Temperature 97.6, Arterial Blood pH 7.35L, Arterial Blood Partial Pressure CO2 36, Arterial Blood Partial Pressure O2 72L, Arterial Blood HCO3 20L, Arterial Blood Total CO2 20.7L, Arterial Blood Oxygen Saturation 95, Arterial Blood Base Excess -5.2L, Peewee Test POSITIVE, Blood Gas Ventilator Setting YES, Blood Gas Inspired Oxygen 50% VENT, Sodium Level 141, Potassium Level 3.7, Chloride Level 110H, Carbon Dioxide Level 16L, Anion Gap 15H, Blood Urea Nitrogen 23H, Creatinine 2.01H, Estimat Glomerular Filtration Rate 32, BUN/Creatinine Ratio 11, Glucose Level 177H, Calcium Level 8.7, Phosphorus Level 5.0H, Magnesium Level 1.8 10/12/18 11:47: Glucometer 197H Microbiology 10/06/18 Blood Culture - Final, Complete No growth 10/10/18 Mycobacterial Culture - Preliminary, Resulted Culture In Progress Assessment/Plan Assessment/Plan Admission Dx acute hypoxic respiratory failure due to pneumonia Assessment and Plan 10/06/18- admitted 10/07/18- transferred to ICU for worsening respiratory status -panculture pending- -continue rocephin, azithromycin -RT consulted -Dr. Collier consulted on Vapotherm Creatinine improved. -urinary catheter placed due to patient's respiratory status- clots noted with hematuria- Dr. Ojeda consulted - 10/08/18- intubated by Dr. Collier for worsening respiratory status. Warfarin held. on ppx lovenox. This is a difficult case with the hematuria but increased risk of clot from his factor V leiden. 10/09/18- now in ARDS- Dr. Collier is managing vent. Since INR is down to 2 and warfarin held. STOPPED Lovenox ( reports he has developed clots with lovenox but heparin worked)- starting heparin gtts (therapeutic protocol). Monitor for bleeding. replacing lytes as needed. IVF switched to LR. Cr a little worse. continue to monitor. Leukocytosis resolved. 10/12/18- he was bronched on 10/10/18- oxygen down to 50-55% with oxygen sats stay around 90-92% - completed azithromycin 10/11/18 - will order 2 more days of rocephin. Dispo: His prognosis with all of his co-morbidities- is guarded/poor. Will keep updated. Problems: (1) Acute respiratory failure with hypoxia (2) Acute on chronic kidney failure Qualifiers: Assessment & Plan: -he has 1 kidney- due to h/o kidney cancer avoid nephrotoxic agents, no NSAIDs. (3) Diabetes mellitus with diabetic nephropathy Qualifiers: Qualified Codes: E11.21 - Type 2 diabetes mellitus with diabetic nephropathy; Z79.4 - [employer] (current) use of insulin Assessment & Plan: Hga1c 8.5 continue insulin SSI hold metformin (acute kidney failure) (4) Factor 5 Leiden mutation, heterozygous Assessment & Plan: on heparin gtts- will need to be bridged back to warfarin prior to discharge. (5) History of DVT (deep vein thrombosis) (6) Obesity (BMI 30-39.9) (7) Obesity hypoventilation syndrome (8) ESPERANZA (obstructive sleep apnea) (9) Pneumonia Qualifiers: Qualified Codes: J18.9 - Pneumonia, unspecified organism Assessment & Plan: last dose 10/13/18 rocephin, completed 10/11/18 azithromycin (10) Hematuria Qualifiers: Qualified Codes: R31.0 - Gross hematuria Assessment & Plan: Dr. Ojeda consulted (11) Acute on chronic diastolic (congestive) heart failure Assessment & Plan: LVEF 70% severe tricuspid regurg lasix prn Admission Dx acute hypoxic respiratory failure due to pneumonia Clinical Quality Measures Admission Status Admission Dx acute hypoxic respiratory failure due to pneumonia DVT/VTE Risk/Contraindication: Risk Factor Score Per Nursin RFS Level Per Nursing on Admit: 4+=Very High AL PETERSEN MD Oct 12, 2018 12:26
[2018-10-12] MEDS: SODIUM BICARBONATE 8.4% VIAL 100 MEQ in 1/2 NS IV SOLUTION 1,000 ML IV SCH ×3 (12:54→22:52)
[2018-10-12] MEDS: cefTRIAXone FOR IV USE 1,000 MG in WATER (STERILE) FOR INJECTION 10 ML IV SCH (12:59)
[2018-10-12] MEDS: HEParin 1000 UNIT/ML (10ML VIAL) FOR BOLUS IV SCH (21:51)
[2018-10-13] VITALS (25 sets, daily range): BP systolic 92–141; BP diastolic 51–59
[2018-10-13] MEDS: PROPOFOL DRIP (ICU) 100 ML IV SCH ×6 (01:31→23:03)
[2018-10-13] MEDS: DEXMEDETOMIDINE INJECTION 1,000 MCG in NS (IVPB) 250 ML IV SCH ×4 (01:38→18:47)
[2018-10-13] MEDS: HEParin DRIP 25000 UNIT/500ML 500 ML IV SCH (02:04)
[2018-10-13] MEDS: RT-ALBUTEROL/IPRATROPIUM 3 ML (DUONEB) VIAL INH SCH ×6 (02:06→22:00)
[2018-10-13 03:13] LABS: BASOPHILS % (AUTO) 0 % (0-10); EOSINOPHILS # (AUTO) 0.2 10^3/uL (0.0-0.3); EOSINOPHILS % (AUTO) 2 % (0-10); HEMATOCRIT 32 % (40-54); HEMOGLOBIN 10.5 G/DL (13.3-17.7); LYMPHOCYTES # (AUTO) 1.3 X 10^3 (1.0-4.0); LYMPHOCYTES % (AUTO) 13 % (12-44); MEAN CORPUSCULAR HEMOGLOBIN 29 PG (25-34); MEAN CORPUSCULAR HGB CONC 32 G/DL (32-36); MEAN CORPUSCULAR VOLUME 90 FL (80-99); MEAN PLATELET VOLUME 10.4 FL (7.4-10.4); MONOCYTES # (AUTO) 0.9 X 10^3 (0.0-1.0); MONOCYTES % (AUTO) 9 % (0-12); NEUTROPHILS # (AUTO) 7.7 X 10^3 (1.8-7.8); NEUTROPHILS % (AUTO) 76 % (42-75); PLATELET COUNT 247 10^3/uL (130-400); RED CELL DISTRIBUTION WIDTH 15.7 % (10.0-14.5); WHITE BLOOD COUNT 10.1 10^3/uL (4.3-11.0)
[2018-10-13 03:13] LABS: ABG BASE EXCESS -2.1 MMOL/L (-2.5-2.5); ABG OXYGEN SATURATION 91 % (94-100); ABG PCO2 35 MMHG (35-45); ABG PH 7.41 (7.37-7.43); ABG PO2 60 MMHG (79-93); ABG TCO2 23.1 MMOL/L (21.0-31.0)
[2018-10-13 03:17] LABS: ALLENS TEST POSITIVE; INSPIRED O2 40% VENT; PATIENT TEMP 96.9; VENTILATOR YES
[2018-10-13 03:27] LABS: INR 1.3 (0.8-1.4); PROTHROMBIN TIME PATIENT 16.4 SEC (12.2-14.7)
[2018-10-13 03:30] LABS: CALCIUM 8.2 MG/DL (8.5-10.1); CREATININE SERUM 2.17 MG/DL (0.60-1.30); MAGNESIUM 1.7 MG/DL (1.8-2.4); PHOSPHORUS 5.2 MG/DL (2.3-4.7); POTASSIUM 3.9 MMOL/L (3.6-5.0)
[2018-10-13] MEDS: POTASSIUM CL 10MEQ/50ML IVPB 50 ML IV SCH (04:20)
[2018-10-13] MEDS: MAGNESIUM 1 GM/100 ML IVPB 100 ML IV SCH ×3 (04:20→07:24)
[2018-10-13] MEDS: KCL 20 MEQ TAB (K-DUR) PO SCH (04:21)
[2018-10-13] MEDS ORDERED: MAGNESIUM 1 GM/100 ML IVPB 100 ML IV SCH (05:45)
--- NOTE | 2018-10-13 05:46 | Pulmonary Progress Note ---
Subjective Time Seen by a Provider: 06:39 Subjective/Events-last exam Sedated on vent. Sepsis Event Evaluation Height, Weight, BMI Height: 5'10.00" Weight: 329lbs. 0.4oz. 149.310795xp; 37.6 BMI Method:Estimated Focused Exam Lactate Level 10/11/18 06:30: Lactic Acid Level 1.02 Exam Exam Vital Signs Date Time Temp Pulse Resp B/P (MAP) Pulse Ox O2 Delivery O2 Flow Rate FiO2 10/13/18 04:27 69 26 92 36 10/13/18 04:00 Mechanical Ventilator 40 10/13/18 04:00 68 25 134/52 (79) 91 Mechanical Ventilator 40.00 10/13/18 03:00 71 26 138/54 (82) 94 Mechanical Ventilator 40.00 10/13/18 02:07 70 26 95 40 10/13/18 02:00 70 26 141/54 (83) 94 Mechanical Ventilator 40.00 10/13/18 01:31 99.1 70 25 137/55 93 Mechanical Ventilator 40.00 10/13/18 01:00 70 25 138/54 (82) 94 Mechanical Ventilator 40.00 10/13/18 01:00 70 10/13/18 00:00 Mechanical Ventilator 40 10/13/18 00:00 70 25 137/55 (82) 93 Mechanical Ventilator 40.00 10/12/18 23:00 71 26 140/55 (83) 95 Mechanical Ventilator 40.00 10/12/18 22:21 Mechanical Ventilator 40.00 10/12/18 22:00 71 25 128/51 (76) 98 Mechanical Ventilator 50.00 10/12/18 21:05 99.1 73 25 134/53 98 Mechanical Ventilator 50.00 10/12/18 21:00 71 21 133/54 (80) 95 Mechanical Ventilator 50.00 10/12/18 20:00 73 25 134/53 (80) 98 Mechanical Ventilator 50.00 10/12/18 20:00 Mechanical Ventilator 45 10/12/18 19:32 99.1 72 26 143/58 (86) 99 Mechanical Ventilator 50.00 10/12/18 19:25 71 26 96 50 10/12/18 19:00 71 25 133/54 (80) 96 Mechanical Ventilator 50.00 10/12/18 19:00 71 10/12/18 18:15 73 10/12/18 18:00 72 26 131/53 (79) 95 Mechanical Ventilator 50.00 10/12/18 17:00 77 25 160/63 (95) 99 Mechanical Ventilator 50.00 10/12/18 16:00 Mechanical Ventilator 50 10/12/18 16:00 97.3 10/12/18 16:00 65 26 128/49 (75) 93 Mechanical Ventilator 50.00 10/12/18 15:00 64 26 126/78 (94) 93 Mechanical Ventilator 50.00 10/12/18 14:57 73 10/12/18 14:51 73 26 92 50 10/12/18 14:00 77 17 127/55 (79) Mechanical Ventilator 50.00 10/12/18 13:00 73 26 120/49 (72) 90 Mechanical Ventilator 50.00 10/12/18 12:54 66 10/12/18 12:39 73 10/12/18 12:00 97.0 10/12/18 12:00 Mechanical Ventilator 50 10/12/18 12:00 67 26 132/49 (76) 92 Mechanical Ventilator 50.00 10/12/18 11:00 68 26 127/51 (76) 94 Mechanical Ventilator 50.00 10/12/18 10:41 66 26 93 50 10/12/18 10:00 66 26 128/50 (76) 94 Mechanical Ventilator 50.00 10/12/18 09:00 69 25 132/51 (78) 94 Mechanical Ventilator 50.00 10/12/18 08:57 66 10/12/18 08:00 Mechanical Ventilator 50 10/12/18 08:00 97.2 10/12/18 08:00 67 25 132/50 (77) 94 Mechanical Ventilator 50.00 10/12/18 07:00 71 10/12/18 07:00 65 20 129/50 (76) 93 Mechanical Ventilator 50.00 10/12/18 06:25 64 26 93 50 10/12/18 06:00 65 26 128/49 (75) 93 Mechanical Ventilator 50.00 I & O 10/13/18 07:00 Intake Total 1290 ml Output Total 1550 ml Balance -260 ml Height & Weight Height: 5'10.00" Weight: 329lbs. 0.4oz. 149.424095na; 37.6 BMI Method:Estimated General Appearance: No Apparent Distress, Other (sedated on vent) HEENT: PERRL/EOMI Neck: Non Tender, Supple Respiratory: Chest Non Tender, Decreased Breath Sounds, Rhonci Cardiovascular: Regular Rate, Rhythm Capillary Refill: Less Than 3 Seconds Gastrointestinal: normal bowel sounds, non tender, soft Extremity: Normal Capillary Refill, Non Tender, No Calf Tenderness Skin: Warm/Dry Lymphatic: No Adenopathy Results Lab Laboratory Tests 10/12/18 02:55 10/13/18 03:00 Assessment/Plan Assessment/Plan Acute respiratory failure with ARDS Pa02/Fi02 = 109.2 -Echocardiogram - Diastolic dysfunction -Continue TF -Cont vent -Decrease PEEP to 10 -Not ready to wean yet Bilateral PNA -Rocephin and azithromycin 10/07 -Improving leukocytosis. 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
--- NOTE | 2018-10-13 07:24 | Diagnostic Imaging Report ---
Indication: Followup respiratory distress, ICU support Comparison study: Chest radiograph from previous morning. Findings: Portable upright view of the chest demonstrates an endotracheal tube and enteric tube remaining in place. Cardiomegaly, pulmonary congestion and edema have slightly improved. No definite effusions are seen. Impression: There is improvement of the cardiomegaly and pulmonary congestion. Pulmonary infiltrates are probably secondary to edema. Dictated by: Dictated on workstation # [id number]
--- NOTE | 2018-10-13 08:03 | NUR ---
Dr. Cerrato notified of brianna blood in urine that started during night stocker and that Dr. Collier stopped heparin drip when notified.
[2018-10-13] MEDS: PANTOPRAZOLE 40 MG (PROTONIX) VIAL IV SCH (08:46)
[2018-10-13] MEDS: meTOprolol TARTRATE 50 MG (LOPRESSOR) TAB PO SCH ×2 (08:47→21:04)
--- NOTE | 2018-10-13 10:13 | Progress Note - Urology ---
Progress Note-Urology Progress Notes/Assess & Plan Progress/Assessment & Plan URINE CLEARING POST DC HEPARIN. TOMORROW CONSIDER SQ HEPARIN Final Diagnosis GROSS HEMATURIA HERNANDEZ DANIELSON MD Oct 13, 2018 10:13
--- NOTE | 2018-10-13 10:30 | NUR ---
Pt O2 Sat at 81%. Gave 100% breath. Ulysses, RT notified. FIO2 increased 80% and PEEP of 12. Ulysses, RT notified Dr. Collier of change.
--- NOTE | 2018-10-13 11:05 | NUR ---
Pastoral care visit, w/granddaughter at bedside,coping well.
--- NOTE | 2018-10-13 11:41 | NUR ---
Dr. Cerrato notified of brianna blood in urine that started during weight shifter and that Dr. Collier stopped heparin drip when notified.
[2018-10-13] MEDS: cefTRIAXone FOR IV USE 1,000 MG in WATER (STERILE) FOR INJECTION 10 ML IV SCH (12:58)
[2018-10-13] MEDS ORDERED: FUROSEMIDE 40 MG/4 ML INJ (LASIX) IVP NR (17:30)
[2018-10-13] MEDS ORDERED: BUMETANIDE 1 MG/4 ML (BUMEX) VIAL IV NR (17:30)
[2018-10-13] MEDS: fentaNYL INJECTION 1,250 MCG in NS (IVPB) 250 ML IV SCH (18:24)
--- NOTE | 2018-10-13 18:55 | NUR ---
Daughter and at bedside. Spoke with regarding pt status and concerns regarding potential dialysis in the future.
[2018-10-13] MEDS: SODIUM BICARBONATE 8.4% VIAL 100 MEQ in 1/2 NS IV SOLUTION 1,000 ML IV SCH (21:04)
--- NOTE | 2018-10-13 23:34 | Progress Note ---
Subjective Subjective Date Seen by Provider: Oct 13, 2018 Time Seen by Provider: 12:30 78 yo M still intubated. I spoke with granddaughter in the patient's room and patient's over the phone. We discussed Don's future care. wants him to stay at [facility] and is not currently interested in dialysis which would require a transfer if his kidneys worsen. told me she wanted more guidance and recommendations from the Don's doctors. She wants direct and honest answers to help her make decisions. She understands his prognosis is not good. Patient had some improvement in PEEP and oxygen % but had to go back up on PEEP and oxygen %. Review of Systems ROS Unable to Obtain: intubated Objective Exam Vital Signs Vital Signs Date Time Temp Pulse Resp B/P (MAP) Pulse Ox O2 Delivery O2 Flow Rate FiO2 10/13/18 23:03 137/52 10/13/18 23:00 70 26 139/53 (81) 94 Mechanical Ventilator 80.00 10/13/18 22:00 67 25 135/52 (79) 94 Mechanical Ventilator 80.00 10/13/18 21:00 71 25 138/53 (81) 94 Mechanical Ventilator 80.00 10/13/18 20:00 94 Mechanical Ventilator 80 10/13/18 20:00 72 25 139/54 (82) 94 Mechanical Ventilator 80.00 10/13/18 20:00 97.4 10/13/18 19:00 71 10/13/18 19:00 71 25 141/56 (84) 95 Mechanical Ventilator 80.00 10/13/18 18:26 71 135/57 10/13/18 18:00 69 28 134/53 (80) 94 Mechanical Ventilator 80.00 10/13/18 17:00 70 25 128/52 (77) 95 Mechanical Ventilator 80.00 10/13/18 16:00 Mechanical Ventilator 80 10/13/18 16:00 73 25 136/52 (80) 93 Mechanical Ventilator 80.00 10/13/18 16:00 97.4 10/13/18 15:00 71 26 135/52 (79) 93 Mechanical Ventilator 80.00 10/13/18 14:30 69 26 94 80 10/13/18 14:21 134/57 10/13/18 14:00 10 26 92/59 (70) 94 Mechanical Ventilator 80.00 10/13/18 13:00 68 26 113/54 (73) 93 Mechanical Ventilator 80.00 10/13/18 12:36 68 10/13/18 12:00 69 25 124/51 (75) 93 Mechanical Ventilator 80.00 10/13/18 12:00 97.4 10/13/18 12:00 Mechanical Ventilator 80 10/13/18 11:00 71 26 135/53 (80) 95 Mechanical Ventilator 80.00 10/13/18 10:44 Mechanical Ventilator 80.00 10/13/18 10:43 154/67 10/13/18 10:22 70 26 91 80 10/13/18 10:00 70 25 136/52 (80) 93 Mechanical Ventilator 40.00 10/13/18 09:00 71 26 133/51 (78) 91 Mechanical Ventilator 40.00 10/13/18 08:45 97.8 10/13/18 08:00 Mechanical Ventilator 36 10/13/18 08:00 71 25 134/51 (78) 93 Mechanical Ventilator 40.00 10/13/18 07:00 71 10/13/18 07:00 66 25 135/51 (79) 92 Mechanical Ventilator 40.00 10/13/18 06:22 68 26 93 36 10/13/18 06:08 99.1 67 25 140/54 92 Mechanical Ventilator 40.00 10/13/18 06:00 67 25 140/54 (82) 92 Mechanical Ventilator 40.00 10/13/18 05:00 70 26 137/55 (82) 92 Mechanical Ventilator 40.00 10/13/18 04:27 69 26 92 36 10/13/18 04:00 Mechanical Ventilator 40 10/13/18 04:00 68 25 134/52 (79) 91 Mechanical Ventilator 40.00 10/13/18 03:00 71 26 138/54 (82) 94 Mechanical Ventilator 40.00 10/13/18 02:07 70 26 95 40 10/13/18 02:00 70 26 141/54 (83) 94 Mechanical Ventilator 40.00 10/13/18 01:31 99.1 70 25 137/55 93 Mechanical Ventilator 40.00 10/13/18 01:00 70 25 138/54 (82) 94 Mechanical Ventilator 40.00 10/13/18 01:00 70 10/13/18 00:00 Mechanical Ventilator 40 10/13/18 00:00 70 25 137/55 (82) 93 Mechanical Ventilator 40.00 I & O 10/13/18 07:00 Intake Total 4050 ml Output Total 1675 ml Balance 2375 ml General Appearance: Other (sedated on vent) Eyes: Bilateral Eye Normal Inspection, Bilateral Eye PERRL, Bilateral Eye EOMI HEENT: PERRL/EOMI Neck: Non Tender, Supple Respiratory: Chest Non Tender, Crackles, Decreased Breath Sounds Cardiovascular: Regular Rate, Rhythm Gastrointestinal: Normal Bowel Sounds, Non Tender, Soft Genital/Rectal: Other (elder in place) Extremity: Normal Capillary Refill, Normal Range of Motion, Non Tender, No Calf Tenderness, Pedal Edema Skin: Warm/Dry Lymphatic: No Adenopathy Results Lab Laboratory Tests 10/13/18 03:00: White Blood Count 10.1, Red Blood Count 3.62L, Hemoglobin 10.5L, Hematocrit 32L, Mean Corpuscular Volume 90, Mean Corpuscular Hemoglobin 29, Mean Corpuscular Hemoglobin Concent 32, Red Cell Distribution Width 15.7H, Platelet Count 247, Mean Platelet Volume 10.4, Neutrophils (%) (Auto) 76H, Lymphocytes (%) (Auto) 13, Monocytes (%) (Auto) 9, Eosinophils (%) (Auto) 2, Basophils (%) (Auto) 0, Neutrophils # (Auto) 7.7, Lymphocytes # (Auto) 1.3, Monocytes # (Auto) 0.9, Eosinophils # (Auto) 0.2, Basophils # (Auto) 0.0, Prothrombin Time 16.4H, INR Comment 1.3, Activated Partial Thromboplast Time 96H, Sodium Level 143, Potassium Level 3.9, Chloride Level 110H, Carbon Dioxide Level 20L, Anion Gap 13, Blood Urea Nitrogen 24H, Creatinine 2.17H, Estimat Glomerular Filtration Rate 29, BUN/Creatinine Ratio 11, Glucose Level 171H, Calcium Level 8.2L, Phosphorus Level 5.2H, Magnesium Level 1.7L, Triglycerides Level 269H 10/13/18 03:10: Blood Gas Puncture Site RIGHT ART LINE, Blood Gas Patient Temperature 96.9, Art erial Blood pH 7.41, Arterial Blood Partial Pressure CO2 35, Arterial Blood Partial Pressure O2 60L, Arterial Blood HCO3 22L, Arterial Blood Total CO2 23.1, Arterial Blood Oxygen Saturation 91L, Arterial Blood Base Excess -2.1, Peewee Test POSITIVE, Blood Gas Ventilator Setting YES, Blood Gas Inspired Oxygen 40% VENT 10/13/18 11:37: Glucometer 174H 10/13/18 17:42: Glucometer 199H Microbiology 10/06/18 Blood Culture - Final, Complete No growth 10/10/18 Mycobacterial Culture - Preliminary, Resulted Culture In Progress Assessment/Plan Assessment/Plan Admission Dx acute hypoxic respiratory failure due to pneumonia Assessment and Plan 10/06/18- admitted 10/07/18- transferred to ICU for worsening respiratory status -panculture pending- -continue rocephin, azithromycin -RT consulted -Dr. Collier consulted on Vapotherm Creatinine improved. -urinary catheter placed due to patient's respiratory status- clots noted with hematuria- Dr. Ojeda consulted - 10/08/18- intubated by Dr. Collier for worsening respiratory status. Warfarin held. on ppx lovenox. This is a difficult case with the hematuria but increased risk of clot from his factor V leiden. 10/09/18- now in ARDS- Dr. Collier is managing vent. Since INR is down to 2 and warfarin held. STOPPED Lovenox ( reports he has developed clots with lovenox but heparin worked)- starting heparin gtts (therapeutic protocol). Monitor for bleeding. replacing lytes as needed. IVF switched to LR. Cr a little worse. continue to monitor. Leukocytosis resolved. 10/12/18- he was bronched on 10/10/18- oxygen down to 50-55% with oxygen sats stay around 90-92% - completed azithromycin 10/11/18 - will order 2 more days of rocephin. 10/12/18 Creatinine increased to >2. Heparin gtts held due to hematuria. Discussed with upcoming decisions in his care- His prognosis is no better than it was on Friday. At the end of our discussion- current plan is to press on with increased lasix to help get fluid off his lungs with the knowledge we may worsen his kidney function but it may allow up to extubate him and have a voice in his care. of patient is going to talk more with friends/family- s o I will be talking with her again tomorrow and likely go in this direction. Pt's right now does not want to transfer to [place] in the event he would need dialysis - as she does not believe Don would agree to dialysis either. Other factor is the hematuria and being off anticoagulation, he has high risk for a blood clot. -Very complicate case with his multiple organ issues. Dispo: His prognosis with all of his co-morbidities- is guarded/poor. Will call patient's tomorrow. Problems: (1) Acute respiratory failure with hypoxia (2) Acute on chronic kidney failure Qualifiers: Assessment & Plan: -he has 1 kidney- due to h/o kidney cancer avoid nephrotoxic agents, no NSAIDs. (3) Diabetes mellitus with diabetic nephropathy Qualifiers: Qualified Codes: E11.21 - Type 2 diabetes mellitus with diabetic nephropathy; Z79.4 - half-way (current) use of insulin Assessment & Plan: Hga1c 8.5 continue insulin SSI hold metformin (acute kidney failure) (4) Factor 5 Leiden mutation, heterozygous Assessment & Plan: on heparin gtts- will need to be bridged back to warfarin prior to discharge. (5) History of DVT (deep vein thrombosis) (6) Obesity (BMI 30-39.9) (7) Obesity hypoventilation syndrome (8) ESPERANZA (obstructive sleep apnea) (9) Pneumonia Qualifiers: Qualified Codes: J18.9 - Pneumonia, unspecified organism Assessment & Plan: last dose 10/13/18 rocephin, completed 10/11/18 azithromycin (10) Hematuria Qualifiers: Qualified Codes: R31.0 - Gross hematuria Assessment & Plan: Dr. Ojeda consulted (11) Acute on chronic diastolic (congestive) heart failure Assessment & Plan: LVEF 70% severe tricuspid regurg lasix prn Admission Dx acute hypoxic respiratory failure due to pneumonia Clinical Quality Measures Admission Status Admission Dx acute hypoxic respiratory failure due to pneumonia DVT/VTE Risk/Contraindication: Risk Factor Score Per Nursin RFS Level Per Nursing on Admit: 4+=Very High AL PETERSEN MD Oct 13, 2018 23:34
[2018-10-14] VITALS (15 sets, daily range): BP systolic 109–142; BP diastolic 48–111
[2018-10-14] MEDS: DEXMEDETOMIDINE INJECTION 1,000 MCG in NS (IVPB) 250 ML IV SCH ×2 (00:52→06:28)
[2018-10-14] MEDS: RT-ALBUTEROL/IPRATROPIUM 3 ML (DUONEB) VIAL INH SCH ×2 (02:15→06:33)
[2018-10-14] MEDS: PROPOFOL DRIP (ICU) 100 ML IV SCH ×3 (02:34→10:21)
[2018-10-14 03:16] LABS: ABG BASE EXCESS -3.5 MMOL/L (-2.5-2.5); ABG OXYGEN SATURATION 98 % (94-100); ABG PCO2 37 MMHG (35-45); ABG PH 7.37 (7.37-7.43); ABG PO2 94 MMHG (79-93); ABG TCO2 22.3 MMOL/L (21.0-31.0); BASOPHILS % (AUTO) 0 % (0-10); EOSINOPHILS # (AUTO) 0.2 10^3/uL (0.0-0.3); EOSINOPHILS % (AUTO) 2 % (0-10); HEMATOCRIT 29 % (40-54); HEMOGLOBIN 9.5 G/DL (13.3-17.7); LYMPHOCYTES # (AUTO) 0.9 X 10^3 (1.0-4.0); LYMPHOCYTES % (AUTO) 10 % (12-44); MEAN CORPUSCULAR HEMOGLOBIN 30 PG (25-34); MEAN CORPUSCULAR HGB CONC 33 G/DL (32-36); MEAN CORPUSCULAR VOLUME 90 FL (80-99); MEAN PLATELET VOLUME 9.9 FL (7.4-10.4); MONOCYTES # (AUTO) 0.8 X 10^3 (0.0-1.0); MONOCYTES % (AUTO) 9 % (0-12); NEUTROPHILS # (AUTO) 7.1 X 10^3 (1.8-7.8); NEUTROPHILS % (AUTO) 79 % (42-75); PLATELET COUNT 223 10^3/uL (130-400); RED CELL DISTRIBUTION WIDTH 15.4 % (10.0-14.5)
[2018-10-14 03:19] LABS: ALLENS TEST ARTLINE; INSPIRED O2 80% FIO2; PATIENT TEMP 96.9; VENTILATOR YES
[2018-10-14 03:27] LABS: INR 1.2 (0.8-1.4)
[2018-10-14 03:34] LABS: CALCIUM 7.6 MG/DL (8.5-10.1); CREATININE SERUM 2.27 MG/DL (0.60-1.30); MAGNESIUM 1.8 MG/DL (1.8-2.4); PHOSPHORUS 5.2 MG/DL (2.3-4.7); POTASSIUM 3.6 MMOL/L (3.6-5.0)
[2018-10-14] MEDS ORDERED: SODIUM BICARB 8.4% 50 MEQ/50 ML VIAL IV ONE (05:00)
[2018-10-14] MEDS ORDERED: SODIUM BICARB 8.4% 50 MEQ/50 ML VIAL ONE (05:04)
--- NOTE | 2018-10-14 05:09 | Pulmonary Progress Note ---
Subjective Time Seen by a Provider: 05:12 Subjective/Events-last exam Pt is sedated on vent. Sepsis Event Evaluation Height, Weight, BMI Height: 5'10.00" Weight: 336lbs. 2.0oz. [id number]; 37.6 BMI Method:Estimated Focused Exam Lactate Level 10/11/18 06:30: Lactic Acid Level 1.02 Exam Exam Vital Signs Date Time Temp Pulse Resp B/P (MAP) Pulse Ox O2 Delivery O2 Flow Rate FiO2 10/14/18 04:00 94 Mechanical Ventilator 80 10/14/18 04:00 74 26 136/51 (79) 94 Mechanical Ventilator 80.00 10/14/18 04:00 96.9 10/14/18 03:00 71 25 136/50 (78) 94 Mechanical Ventilator 80.00 10/14/18 02:34 139/52 10/14/18 02:15 72 26 94 80 10/14/18 02:00 71 26 136/50 (78) 94 Mechanical Ventilator 80.00 10/14/18 01:00 71 10/14/18 01:00 71 25 134/51 (78) 94 Mechanical Ventilator 80.00 10/14/18 00:30 71 26 94 80 10/14/18 00:00 94 Mechanical Ventilator 80 10/14/18 00:00 96.9 10/14/18 00:00 71 25 134/52 (79) 95 Mechanical Ventilator 80.00 10/13/18 23:03 137/52 10/13/18 23:00 70 26 139/53 (81) 94 Mechanical Ventilator 80.00 10/13/18 22:00 67 25 135/52 (79) 94 Mechanical Ventilator 80.00 10/13/18 22:00 68 26 93 80 10/13/18 21:00 71 25 138/53 (81) 94 Mechanical Ventilator 80.00 10/13/18 20:00 94 Mechanical Ventilator 80 10/13/18 20:00 72 25 139/54 (82) 94 Mechanical Ventilator 80.00 10/13/18 20:00 97.4 10/13/18 19:00 71 10/13/18 19:00 71 25 141/56 (84) 95 Mechanical Ventilator 80.00 10/13/18 18:26 71 135/57 10/13/18 18:00 69 28 134/53 (80) 94 Mechanical Ventilator 80.00 10/13/18 17:50 69 28 95 80 10/13/18 17:00 70 25 128/52 (77) 95 Mechanical Ventilator 80.00 10/13/18 16:00 Mechanical Ventilator 80 10/13/18 16:00 73 25 136/52 (80) 93 Mechanical Ventilator 80.00 10/13/18 16:00 97.4 10/13/18 15:00 71 26 135/52 (79) 93 Mechanical Ventilator 80.00 10/13/18 14:30 69 26 94 80 10/13/18 14:21 134/57 10/13/18 14:00 10 26 92/59 (70) 94 Mechanical Ventilator 80.00 10/13/18 13:00 68 26 113/54 (73) 93 Mechanical Ventilator 80.00 10/13/18 12:36 68 10/13/18 12:00 69 25 124/51 (75) 93 Mechanical Ventilator 80.00 10/13/18 12:00 97.4 10/13/18 12:00 Mechanical Ventilator 80 10/13/18 11:00 71 26 135/53 (80) 95 Mechanical Ventilator 80.00 10/13/18 10:44 Mechanical Ventilator 80.00 10/13/18 10:43 154/67 10/13/18 10:22 70 26 91 80 10/13/18 10:00 70 25 136/52 (80) 93 Mechanical Ventilator 40.00 10/13/18 09:00 71 26 133/51 (78) 91 Mechanical Ventilator 40.00 10/13/18 08:45 97.8 10/13/18 08:00 Mechanical Ventilator 36 10/13/18 08:00 71 25 134/51 (78) 93 Mechanical Ventilator 40.00 10/13/18 07:00 71 10/13/18 07:00 66 25 135/51 (79) 92 Mechanical Ventilator 40.00 10/13/18 06:22 68 26 93 36 10/13/18 06:08 99.1 67 25 140/54 92 Mechanical Ventilator 40.00 10/13/18 06:00 67 25 140/54 (82) 92 Mechanical Ventilator 40.00 I & O 10/14/18 07:00 Intake Total 3625 ml Output Total 1250 ml Balance 2375 ml Height & Weight Height: 5'10.00" Weight: 336lbs. 2.0oz. 152.165723du; 37.6 BMI Method:Estimated General Appearance: Other (sedated on vent) HEENT: PERRL/EOMI Neck: Non Tender, Supple Respiratory: Chest Non Tender, Crackles, Decreased Breath Sounds Cardiovascular: Regular Rate, Rhythm Capillary Refill: Less Than 3 Seconds Gastrointestinal: normal bowel sounds, non tender, soft Extremity: Normal Capillary Refill, Normal Range of Motion, Non Tender, No Calf Tenderness, Pedal Edema Skin: Warm/Dry Lymphatic: No Adenopathy Results Lab Laboratory Tests 10/13/18 03:00 10/14/18 03:08 Assessment/Plan Assessment/Plan Acute respiratory failure with ARDS vs pulmonary edema Pa02/Fi02 = 117.5 -Echocardiogram - Diastolic dysfunction -Continue TF -Cont vent - PEEP to 12 -Not ready to wean yet Bilateral PNA - No leukocytosis, no fever. -Rocephin 10/07 -S/p Azithromycin -Improving leukocytosis. 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 -IVF Bicarb gtt at 50cc/hr -Monitor Metabolic lactic acidosis -Give 2 amps of bicarb - Bicarb gtt -- decrease to 50cc/hr -Monitor Anemia -Monitor Morbid obesity with OHS ESPERANZA Hx of tobacco use -out pt testing Hx of DVT -hep gtt SOULEYMANE ABBOTT DO Oct 14, 2018 05:09
[2018-10-14] MEDS: POTASSIUM CL 10MEQ/50ML IVPB 50 ML IV SCH ×3 (05:22→06:23)
[2018-10-14] MEDS: MAGNESIUM 1 GM/100 ML IVPB 100 ML IV SCH (05:26)
[2018-10-14] MEDS: KCL 20 MEQ TAB (K-DUR) PO SCH (05:26)
[2018-10-14] MEDS ORDERED: inSUlin ASPART (NovoLOG) 1 UNIT/0.01 ML (CHARGE PER UNIT) SC SCH (06:00)
[2018-10-14] MEDS: PANTOPRAZOLE 40 MG (PROTONIX) VIAL IV SCH (08:03)
[2018-10-14] MEDS: meTOprolol TARTRATE 50 MG (LOPRESSOR) TAB PO SCH (08:03)
--- NOTE | 2018-10-14 08:49 | Diagnostic Imaging Report ---
Indication: Respiratory distress. Compared: 10/13 Findings: ET tube with the tip lower thoracic trachea, OG catheter is in the stomach. Bilateral mixed interstitial and airspace opacities unchanged. No pneumothorax. Impression: 5-lobed pulmonary opacities, edema versus pneumonia unchanged, ET tube lower trachea stable, no new abnormality. Dictated by: Dictated on workstation # [id number]
--- NOTE | 2018-10-14 08:54 | Discharge Summary ---
Diagnosis/Chief Complaint Date of Admission Oct 06, 2018 at 16:15 Date of Discharge October 14, 2018 Admission Diagnosis Admission Diagnosis (1) Acute respiratory failure with hypoxia (2) Acute on chronic kidney failure (3) Diabetes mellitus with diabetic nephropathy (4) Factor 5 Leiden (5) History of DVT (deep vein thrombosis) (6) Obesity (BMI 30-39.9) (7) Obesity hypoventilation syndrome (8) ESPERANZA (obstructive sleep apnea) (9) Pneumonia (10) Hematuria (11) Acute on chronic diastolic (congestive) heart failure Discharge Diagnosis (1) Acute respiratory failure with hypoxia (2) Acute on chronic kidney failure (3) Diabetes mellitus with diabetic nephropathy (4) Factor 5 Leiden (5) History of DVT (deep vein thrombosis) (6) Obesity (BMI 30-39.9) (7) Obesity hypoventilation syndrome (8) ESPERANZA (obstructive sleep apnea) (9) Pneumonia (10) Hematuria (11) Acute on chronic diastolic (congestive) heart failure Reason Hospital Visit 78-year-old male admitted on October 06, 2018 from the ER for acute respiratory failure due to bilateral pneumonia. Patient was seen at [facility] on October 05 and was started on azithromycin and prednisone and a dose of Lasix. He did not improve and felt like he might be getting worse so he went to the ER. Patient found to have bilateral pneumonia he was placed on 3-4 L of oxygen nasal cannula. Overnight events patient did have increased trouble breathing and was subsequently placed on Vapotherm and transferred to the ICU for acute worsening respiratory failure. Of note patient did get 1 dose of cefepime yesterday this has since been changed to Rocephin and azithromycin. White blood cells are still elevated. Lactic acid elevated as well. Creatinine has improved from 2 to 1.7. Patient is on warfarin for history of DVTs. He does have factor V leiden. Other pertinent information patient reports his difficulty breathing is been going on for more than 2 weeks but has worsened over the last couple weeks with exertion. His home oxygen saturation monitor shows he is in the 80s with ambulation. He also has obstructive sleep apnea which he uses a CPAP at night but lately has not been very beneficial due to his difficulty breathing. Denies any fevers but endorses chills. Patient also has diabetes which is not under good control. He does eat and snack all day and overnight. We will check his hga1c while inpatient. Discharge Summary Consultations Dr. Ojeda, urology Dr. Collier, pulmonology Discharge Physical Examination Allergies: Coded Allergies: meperidine (Verified Allergy, Unknown, 08/23/17) Vitals & I&Os Vital Signs Date Time Temp Pulse Resp B/P (MAP) Pulse Ox O2 Delivery O2 Flow Rate FiO2 10/14/18 10:21 86 10/14/18 10:00 25 129/48 (75) 94 Mechanical Ventilator 80.00 10/14/18 08:01 97.4 10/14/18 08:00 80 General Appearance: Other (sedated, intubated) Cardiovascular: Regular Rate Hospital Course 10/06/18- admitted 10/07/18- transferred to ICU for worsening respiratory status -panculture pending- -continue rocephin, azithromycin -RT consulted -Dr. Collier consulted on Vapotherm Creatinine improved. -urinary catheter placed due to patient's respiratory status- clots noted with hematuria- Dr. Ojeda consulted - 10/08/18- intubated by Dr. Collier for worsening respiratory status. Warfarin held. on ppx lovenox. This is a difficult case with the hematuria but increased risk of clot from his factor V leiden. 10/09/18- now in ARDS- Dr. Collier is managing vent. Since INR is down to 2 and warfarin held. STOPPED Lovenox ( reports he has developed clots with lovenox but heparin worked)- starting heparin gtts (therapeutic protocol). Monitor for bleeding. replacing lytes as needed. IVF switched to LR. Cr a little worse. continue to monitor. Leukocytosis resolved. 10/12/18- he had a bronchoscopy on 10/10/18- oxygen down to 50-55% with oxygen sats stay around 90-92% - completed azithromycin 10/11/18 - will order 2 more days of rocephin. 10/13/18 Creatinine increased to >2. Heparin gtts held due to hematuria. Discussed with upcoming decisions in his care- His prognosis is no better than it was on Friday. At the end of our discussion- current plan is to press on with increased lasix to help get fluid off his lungs with the knowledge we may worsen his kidney function but it may allow up to extubate him and have a voice in his care. of patient is going to talk more with friends/family- so I will be talking with her again tomorrow and likely go in this direction. Pt's right now does not want to transfer to [place] in the event he would need dialysis - as she does not believe Don would agree to dialysis either. Other factor is the hematuria and being off anticoagulation, he has high risk for a blood clot. -Very complicate case with his multiple organ issues. 10/14/18- Creatinine no better today. Transferring to after family had time to consider their options. Dr. Collier, pulm and Dr. Ojeda, urology have discussed with family. (1) Acute respiratory failure with hypoxia (2) Acute on chronic kidney failure Qualifiers: Assessment & Plan: -he has 1 kidney- due to h/o kidney cancer avoid nephrotoxic agents, no NSAIDs. (3) Diabetes mellitus with diabetic nephropathy Qualifiers: Qualified Codes: E11.21 - Type 2 diabetes mellitus with diabetic nephropathy; Z79.4 - skilled nursing (current) use of insulin Assessment & Plan: Hga1c 8.5 (4) Factor 5 Leiden mutation (5) History of DVT (deep vein thrombosis) (6) Obesity (BMI 30-39.9) (7) Obesity hypoventilation syndrome (8) ESPERANZA (obstructive sleep apnea) (9) Pneumonia Qualified Codes: J18.9 - Pneumonia, unspecified organism Assessment & Plan: last dose 10/13/18 rocephin, completed 10/11/18 azithromycin (10) Hematuria Qualifiers: Qualified Codes: R31.0 - Gross hematuria Assessment & Plan: Dr. Ojeda consulted (11) Acute on chronic diastolic (congestive) heart failure Assessment & Plan: LVEF 70% severe tricuspid regurg Pending Labs Discharge Condition at discharge guarded- Transferring to Instructions to patient/family Transferring to Discharge Medications Reviewed and agree with Discharge Medication list on patient's Discharge Instruction sheet Clinical Quality Measures DVT/VTE Risk/Contraindication: Risk Factor Score Per Nursin RFS Level Per Nursing on Admit: 4+=Very High AL PETERSEN MD Oct 14, 2018 08:54
--- NOTE | 2018-10-14 09:40 | NUR ---
Contacted BAHMAN Cabrales at to give report. Report provided. This RN gave a contact number if Samra has any questions. Made Samra aware that flight crew has landed but has not entered facility at this time.
--- NOTE | 2018-10-14 10:46 | NUR ---
Heather arrived in facility at 1000. Attached pt to own monitors, vent and IVs. Heather left with pt at 1029. Discharge information sent with team.
== END 2018-10-14 10:29 | disposition short-term general hospital (02) | DRG 207 ==
LOC: EDUNIT# 12:20 → ER 12:21 → 4TH 16:15 → ICU 10-07 08:40
PROVIDERS: ADMIT Family Medicine; ATTEND Family Medicine
PROC: 0BH17EZ Insertion of Endotracheal Airway into Trachea, Via Natural or Artificial Opening (ICD-10-PCS; 2018-10-08)
PROC: 0TJB8ZZ Inspection of Bladder, Via Natural or Artificial Opening Endoscopic (ICD-10-PCS; 2018-10-08)
PROC: 5A1955Z Respiratory Ventilation, Greater than 96 Consecutive Hours (ICD-10-PCS; principal; 2018-10-08 12:15)
PROC: 0BC78ZZ Extirpation of Matter from Left Main Bronchus, Via Natural or Artificial Opening Endoscopic (ICD-10-PCS; 2018-10-10)
PROC: 0BC38ZZ Extirpation of Matter from Right Main Bronchus, Via Natural or Artificial Opening Endoscopic (ICD-10-PCS; 2018-10-10)
DX: J18.9 Pneumonia, unspecified organism (principal); J80 Acute respiratory distress syndrome; D68.51 Activated protein C resistance; N17.9 Acute kidney failure, unspecified; E87.2 Acidosis; E66.2 Morbid (severe) obesity with alveolar hypoventilation; I13.0 Hypertensive heart and chronic kidney disease with heart failure and stage 1 through stage 4 chronic kidney disease, or unspecified chronic kidney disease; I50.33 Acute on chronic diastolic (congestive) heart failure; N18.9 Chronic kidney disease, unspecified; J81.1 Chronic pulmonary edema; K21.9 Gastro-esophageal reflux disease without esophagitis; I07.1 Rheumatic tricuspid insufficiency; N40.1 Benign prostatic hyperplasia with lower urinary tract symptoms; K57.90 Diverticulosis of intestine, part unspecified, without perforation or abscess without bleeding; K44.9 Diaphragmatic hernia without obstruction or gangrene; E11.21 Type 2 diabetes mellitus with diabetic nephropathy; R31.0 Gross hematuria; N32.9 Bladder disorder, unspecified; N13.5 Crossing vessel and stricture of ureter without hydronephrosis; E87.6 Hypokalemia; D64.9 Anemia, unspecified; E83.42 Hypomagnesemia; T17.900A Unspecified foreign body in respiratory tract, part unspecified causing asphyxiation, initial encounter; Z68.37 Body mass index [BMI] 37.0-37.9, adult; Z79.4 Long term (current) use of insulin; Z85.528 Personal history of other malignant neoplasm of kidney; Z86.718 Personal history of other venous thrombosis and embolism; Z79.01 Long term (current) use of anticoagulants; Z87.891 Personal history of nicotine dependence; Z90.5 Acquired absence of kidney
CPT/HCPCS: 36415; 36600; 71045; 71046; 80048; 80053; 80069; 82805; 82962; 83036; 83605; 83735; 83880; 84100; 84478; 85007; 85025; 85027; 85610; 85730; 87015; 87040; 87070; 87077; 87081; 87101; 87116; 87205; 87206; 93306; 94002; 94003; 94640; 94660; 94760; 94799; 96361; 96374